=== PATIENT | male | born 1940 | race Caucasian/White ===

== ENCOUNTER 2016-09-04 14:20 | Inpatient (IN) | payer MEDICARE ==
[~2016-09-04] VITALS: Ht 180.3 cm; Wt 91.8 kg
[~2016-09-04 14:20] MED LIST: ASPIRIN325 MG PO; BENZONATATE200 MG PO; CORDARONE200 MG PO; COREG25 MG PO; CRESTOR10 MG PO; DEMADEX20 MG PO; HUMALOG 30100 UNITS/ SC; IPRAT-ALBUT 0.5-3 ML UPD; LANTUS SOL100 UNIT/1 SC; LEVAQUIN500 MG PO; MUCINEX DM ER1 EAC1 PO; NORVASC10 MG PO; PLAVIX75 MG PO; PREDNISONE20 MG PO; SINGULAIR10 MG PO; ZESTRIL40 MG PO
[2016-09-04 15:37] LABS: BASOPHILS 0 % (0.0-2.0); EOSINOPHILS 0 % (0-7); HEMATOCRIT 28.5 % (42.0-54.0); HEMOGLOBIN 8.7 g/dL (13.5-17.5); IMMATURE GRANULOCYTES 0.5 % (0-5); MCH 28.8 pg (26.0-34.0); MCHC 30.5 g/dL (31.0-37.0); MCV 94.4 fL (80.0-100.0); MEAN PLATELET VOLUME 10.9 fL (7.4-10.4); NEUTROPHILS 95.5 % (40-80); PLATELET COUNT 180 10x3/uL (130-400); RBC 3.02 10x6/uL (4.20-6.10); RDW 16.5 % (11.5-14.5); WBC 8.6 10x3/uL (4.8-10.8)
[2016-09-04 15:40] LABS: ALBUMIN 2.9 g/dL (3.4-5.0); ANION GAP 15.1 mmol/L (8-16); BILIRUBIN - TOTAL 0.4 mg/dL (0.2-1.3); CALCIUM 8.2 mg/dL (8.5-10.1); CARBON DIOXIDE 20.2 mmol/L (21.0-32.0); CREATININE - SERUM 3.8 mg/dL (0.6-1.3); PROTEIN - SERUM 6.1 g/dL (6.4-8.2)
[2016-09-04 15:45] LABS: POTASSIUM - SERUM 6.3 mmol/L (3.5-5.1)
[2016-09-04 16:19] LABS: PRO BNP 11172 pg/mL (0-450)
[2016-09-04 16:21] LABS: TROPONIN-I < 0.017 ng/mL (0.000-0.060)
[2016-09-04 16:37] LABS: APPEARANCE HAZY (CLEAR); BILIRUBIN NEGATIVE (NEGATIVE); COLOR YELLOW (YELLOW); GLUCOSE NEGATIVE (NEGATIVE); KETONE NEGATIVE (NEGATIVE); LEUKOCYTE ESTERASE 2+ (NEGATIVE); NITRITE NEGATIVE (NEGATIVE); PROTEIN 1+ mg/dL (NEGATIVE); SPECIFIC GRAVITY 1.015 (1.005-1.020); UROBILINOGEN NORMAL (NORMAL)
[2016-09-04 16:38] LABS: BACTERIA MODERATE /hpf (NONE SEEN); RED CELLS - URINE 25-50 /hpf (0-5)
[2016-09-04] MEDS ORDERED: PREDNISONE10 MG PO (20:42)
[2016-09-04] MEDS ORDERED: FUROSEMIDE40 MG PO (20:43)
[2016-09-04] MEDS ORDERED: ULTRAM50 MG PO (20:45)
[2016-09-04] MEDS ORDERED: BETAPACE 120 M120 MG PO (20:46)
[2016-09-04] MEDS ORDERED: HUMALOG 30100 UNITS/ SC (20:49)
[2016-09-04] MEDS ORDERED: NORVASC10 MG PO (20:50)
[2016-09-04] MEDS ORDERED: FLOMAX0.4 MG PO (20:50)
[2016-09-04] MEDS ORDERED: CARDURA4 MG PO (20:51)
[2016-09-04] MEDS ORDERED: NOVOLIN N100 U/ML SQ ×2 (20:52)
--- NOTE | 2016-09-04 22:00 | NUR ---
NEW ADMIT TO [facility] FROM EMERGENCY DEPARTMENT TO DR THURSTON FOR RENAL FAILURE AND CHF. RECEIVED TO ROOM 2107 WITH AND STAFF AT HIS SIDE. RIGHT HAND IV IN PLACE S/L. CALM AND COOPERATIVE. DENIES ANY DISRESS. STATES PAIN OF [address] SANDRA CALLED AND INFORMED OF PATIENT ARRIVAL. NO NEW ORDERES RECEIVED. NEW LUND CATH PLACE PER ORDER. [id number] OUT UPON PLACEMENT OF NEW LUND. TELEMETRY ORDERED BUT NOT AVAILABLE AT THIS TIME. ORIENTED TO UNIT. EDUCATE ON FALLS SAFETY,
[2016-09-04 22:03] LABS: APPEARANCE CLEAR (CLEAR); COLOR YELLOW (YELLOW); SPECIFIC GRAVITY 1.015 (1.005-1.020)
[2016-09-04 22:04] LABS: BILIRUBIN NEGATIVE (NEGATIVE); GLUCOSE NEGATIVE (NEGATIVE); KETONE NEGATIVE (NEGATIVE); LEUKOCYTE ESTERASE NEGATIVE (NEGATIVE); NITRITE NEGATIVE (NEGATIVE); PROTEIN NEGATIVE (NEGATIVE); UROBILINOGEN NORMAL (NORMAL)
[2016-09-05] VITALS (7 sets, daily range): BP systolic 106–192; BP diastolic 51–82; Ht 180.3 cm; Wt 91.8 kg
[2016-09-05 05:57] LABS: BASOPHILS 0 % (0.0-2.0); EOSINOPHILS 0.1 % (0-7); HEMATOCRIT 25.9 % (42.0-54.0); HEMOGLOBIN 8.1 g/dL (13.5-17.5); IMMATURE GRANULOCYTES 0.5 % (0-5); LYMPHOCYTES 8.6 % (15-50); MCH 29.1 pg (26.0-34.0); MCHC 31.3 g/dL (31.0-37.0); MCV 93.2 fL (80.0-100.0); MEAN PLATELET VOLUME 10.6 fL (7.4-10.4); MONOCYTES 4.6 % (2-11); NEUTROPHILS 86.2 % (40-80); PLATELET COUNT 171 10x3/uL (130-400); RBC 2.78 10x6/uL (4.20-6.10); RDW 16.2 % (11.5-14.5); WBC 7.8 10x3/uL (4.8-10.8)
[2016-09-05 06:34] LABS: ALBUMIN 2.6 g/dL (3.4-5.0); BILIRUBIN - TOTAL 0.4 mg/dL (0.2-1.3); CALCIUM 7.7 mg/dL (8.5-10.1); CARBON DIOXIDE 19.5 mmol/L (21.0-32.0); CREATININE - SERUM 3.7 mg/dL (0.6-1.3); POTASSIUM - SERUM 5.5 mmol/L (3.5-5.1); PROTEIN - SERUM 5.3 g/dL (6.4-8.2)
--- NOTE | 2016-09-05 07:13 | NUR ---
AM ROUNDING- RECEIVED REPORT, PT CURRENTLY SITTING UP IN BED WITH EYES OPEN ASKING WHEN BREAKFAST WILL BE. INFORMED PT TRAYS WILL BE UP AROUND 0800. PT IS ALERT AND ORIENTED. LUND CATHETER WITH YELLOW URINE SEEN. ON ROOM AIR. NO MONITOR CURRENTLY PER REPORT BECAUSE THERE ARE NON AVAILABLE CURRENTLY. FSBS ACHS, NO COVERAGE NEEDED THIS AM PER MINE MOTOR ENGINEER NURSE. +3 EDEMA SEEN TO LE. NO NEED AT CURRENT TIME. WILL CONTINUE TO MONITOR AND CONTINUE WITH PLAN OF CARE.
--- NOTE | 2016-09-05 09:35 | NUR ---
PLACED ON MONITOR ORDERED. SHOWING JUNCTIONAL RHYTHM, HR 50.
[2016-09-05 15:04] LABS: ANION GAP 13.5 mmol/L (8-16); CALCIUM 8.1 mg/dL (8.5-10.1); CARBON DIOXIDE 21.6 mmol/L (21.0-32.0); CREATININE - SERUM 3.4 mg/dL (0.6-1.3)
[2016-09-05 15:33] LABS: POTASSIUM - SERUM 6.1 mmol/L (3.5-5.1)
--- NOTE | 2016-09-05 15:47 | NUR ---
CALLED DR. MCCARTHY OFFICE. DR. FUNES IS OUT FOR THE AFTERNOON PER NUCLEAR EQUIPMENT SALES ENGINEER. DR. DAY IS SUPERVISOR OF OFFICIALS. I CALLED TO INFORM DOCTOR MARIN OF PTS POTASSIUM LEVEL (6.1). NUCLEAR EQUIPMENT SALES ENGINEER SENT ME TO DR. DELAROSA NURSES VOICMAIL. LEFT VOICEMAIL REQUESTING THAT NURSE CALL ME BACK. WILL CONTINUE TO MONITOR AND AWAIT CALLBACK.
--- NOTE | 2016-09-05 15:56 | NUR ---
SPOKE WITH DR. DAY, INFORMED HIM OF PTS POTASSIUM LEVEL. DR. DAY STATED TO NOTIFY PTS RENAL DOCTOR ABOUT POTASSIUM LEVEL. WILL CALL DR. ASNDRA ORDERED.
--- NOTE | 2016-09-05 16:59 | NUR ---
Patient Name: MARIAMA ZUÑIGA Admission Status: ER Accout number: [id number] Admission Date: 09-04-2016 : 1940 Admission Diagnosis: Attending: STEPHEN Current LOS: 1 Anticipated DC Date: 09-05-2016 Planned Disposition: Home with Home Health Primary Insurance: [employer] CHOICE PPO MCR ADVANT Discharge Planning Comments: * Is the patient Alert and Oriented? Yes 0 * How many steps to enter\exit or inside your home? 3 0 * PCP DR. VITALE 0 * [facility] * Preadmission Environment Home with Family 0 * ADLs Independent 0 * Equipment CPAP Elevated [place] Seat Nebulizer 0 * Other Equipment [facility] - MEDICAL EQUIPMENT PROVIDER PREFERENCE 0 * List name and contact numbers for known caregivers / representatives who currently or will assist patient after discharge: JOSE ANGEL ZUÑIGA, SPOUSE, 0 * Community resources currently utilized Home Health 0 * Please name any agencies selected above. [facility] WAS SCHEDULED TO ADMIT ON 09-04-16, DAY PT ADMITTED HERE 0 * Additional services required to return to the preadmission environment? Yes 0 * Can the patient safely return to the preadmission environment? Yes 0 * Has this patient been hospitalized within the prior 30 days at any hospital? Yes 0 CM MET WITH PT IN ROOM TO DISCUSS DISCHARGE PLANNING AND NEEDS. PT REPORTS LIVING AT HOME INDEPENDENTLY WITH HIS SPOUSE. PT HAS ELEVATED TOILET SEAT, CPAP AND NEBULIZER FROM [facility]. PT HAD HOME HEALTH WITH [facility] SET UP AFTER HE GOT RELEASED FROM [facility], THERE WERE TO ADMIT HIM YESTERDAY BUT HE WAS ADMITTED HERE FOR SWELLING. PT REPORTS HE WAS IN [facility] IN THE LAST 30 DAYS. CM DISCUSSED AVAILABILITY OF HOME HEALTH, REHAB SERVICES AND MEDICAL EQUIPMENT. PT PLANS TO DISCHARGE HOME AND WANTS HOME HEALTH ARRANGED WITH [facility] WHEN HE DISCHARGES HOME. PT REPORTS HIS WILL PICK HIM UP FOR DISCHARGE HOME. CM CALLED [facility], , SPOKE TO EDWINA WHO REPORTED THAT IF PT NEEDS HOME HEALTH AT DISCHARGE, THEY WILL NEED NEW ORDERS PT WAS NOT ADMITTED TO HOME HEALTH PRIOR TO HIS ADMISSION TO [facility]. CM SPOKE TO PT, CHOICE SIGNED. PT PLANS TO DISCHARGE HOME WITH SPOUSE, REQUESTS HOME HEALTH WITH [facility]; CM TO ARRANGE WITH PHYSICIAN ORDERS IF NEEDED. Special Education Itinerant Teacher: Lucas Hyman
--- NOTE | 2016-09-05 17:50 | NUR ---
PT SITTING UP IN BED CURRENTLY EATING DINNER. DENIES ANY NEED AT CURRENT TIME. WILL CONTINUE TO MONITOR.
--- NOTE | 2016-09-05 18:18 | NUR ---
DR. SANDRA ON UNIT. INFORMED HIM OF PTS POTASSIUM PER DR. DELAROSA REQUEST. AWAITING NEW ORDERS.
--- NOTE | 2016-09-05 19:54 | NUR ---
INTRODUCED MYSELF TO PT PRIMARY RN FOR [facility] SHIFT. PT IS SITTING UP IN BED RESTING QUIETLY. ALERT & ORIENTED. SHIFT ASSESSMENT COMPLETED AND MARINE SUPERINTENDENT MAKING ROUNDS FOR VITALS. PT DENIES ANY CURRENT NEEDS AT THIS TIME WILL PULL NIGHTLY SCHEDULED MEDICATIONS AND CONTINUE WITH PLAN OF CARE. CL IN REACH, BED IN LOWEST, SIDE RAILS X2.
[2016-09-06] VITALS (26 sets, daily range): BP systolic 149–183; BP diastolic 49–99
[2016-09-06 06:11] LABS: BASOPHILS 0 % (0.0-2.0); EOSINOPHILS 0 % (0-7); HEMATOCRIT 27.4 % (42.0-54.0); HEMOGLOBIN 8.4 g/dL (13.5-17.5); IMMATURE GRANULOCYTES 0.5 % (0-5); LYMPHOCYTES 5.5 % (15-50); MCH 28.6 pg (26.0-34.0); MCHC 30.7 g/dL (31.0-37.0); MCV 93.2 fL (80.0-100.0); MEAN PLATELET VOLUME 10.6 fL (7.4-10.4); MONOCYTES 3.3 % (2-11); NEUTROPHILS 90.7 % (40-80); PLATELET COUNT 166 10x3/uL (130-400); RBC 2.94 10x6/uL (4.20-6.10); RDW 16.5 % (11.5-14.5); WBC 6.6 10x3/uL (4.8-10.8)
[2016-09-06 06:53] LABS: ALBUMIN 2.7 g/dL (3.4-5.0); ANION GAP 14.3 mmol/L (8-16); BILIRUBIN - TOTAL 0.39 mg/dL (0.2-1.3); CARBON DIOXIDE 22.4 mmol/L (21.0-32.0); CREATININE - SERUM 3.3 mg/dL (0.6-1.3); POTASSIUM - SERUM 5.7 mmol/L (3.5-5.1); PROTEIN - SERUM 5.5 g/dL (6.4-8.2)
[2016-09-06 12:03] LABS: HEMATOCRIT 24.6 % (42.0-54.0); HEMOGLOBIN 7.8 g/dL (13.5-17.5)
--- NOTE | 2016-09-06 12:23 | NUR ---
PT ASSESSMENT COMPLETED PT STATED " I FEEL LIKE I NEED TO HAVE A POOP" ASSISTED PT TO BEDPAN AND PT HAD BM WITH BRIGHT RED BLOOD IN STOOLS AND LOOSE STOOLS PT CLEANED UP AND LINENS CHANGED BY LUIZ OVALLES THIS NURSE PAGED DR SAPP AND INFORMED HIM OF CHANGE IN PT STATUS ORDERS RECIVED AND EXECUTED ORDERED DR LEES OFFICE CALLED REGARDING CONSULT AND INFORMED OF PT STATUS AND WATING FOR CALL BACK FOR FURTHER ORDERS PT LAYING IN BED NO DITRESS OBSERVED AT THIS TIME VITAL SIGNS STABLE AND PT IS ASYMPTOMATIC WILL MONITOR
--- NOTE | 2016-09-06 12:32 | NUR ---
DR LEES OFFICE CALLED BACK ORDERS RECIVED TO TRANSFER TO ICU AND HAVE ABD AND PELVICE CT COMPLETED AND ORAL CONTRAST ONLY NG TUBE TO BE DROPPED AND 1LITER LAVAGE WITH RESULTS CALLED TO DR LEES OFFICE3
--- NOTE | 2016-09-06 12:33 | NUR ---
REPORT CALLED TO ICU NURSE WOJCIECH. PT TRANSFERED TO UNIT BY BED
--- NOTE | 2016-09-06 13:16 | NUR ---
1300 PT RECIEVED IN THE ICU VIA BED FROM THE FLOOR . PT IS AWAKE AND ALERT C/O RIGHT HIP AND THIGH PAIN.. STATES THAT HE HAS NOT HAD ANY NAUSEA OR VOMITING.. STATED THAT THEY GAVE HIM SOMETHING BY MOUTH TO HELP LOWERR HIS POTASIUM LEVEL AND IT MADE HIM HAVE A BM.... STATES NO KNOWLEDGE IF IT WAS BLOODY OR NOT WHEN ASKED IF IT WAS A LARGE AMOUNT OF BLOOD...THERE IS A 20GA PIV IN THE LEFT HAND SALINE LOCKED.. 1315 LAB CALLED FOR PRBC .. NOT YET READY.. 1320 DR LEES PAGED FOR CLARIFICATION OF ORDERS..
--- NOTE | 2016-09-06 14:53 | NUR ---
1415 PIV RIGHT HAND INFILTRATED.. DISCOVERED WHEN PRBC TO BE INFUSED... 1420 PIV RESITED INTO LEFT WRIST.... 20 GA... PRBC HUNG AND INFUSION INITIATED.. PT WITH A VERY LARGE LIQUID MAROON STOOL 850CC 1430 16 FR NGT INSTILLED AND 1000CC NS LAVAGE.. 500 CC IMMIDIATE RETURN ON CLEAR ORANGE TINT ASPIRATE OBTAINED.. 1500 CT HERE AND ORAL CONTRAST IS INSTILLED INTO THE NGT.. PRBC CONTINUES TO INFUSE INTO THE LEFT WRIST PIV PT IS C/OO HIP AND LEG PAIN...
--- NOTE | 2016-09-06 15:44 | NUR ---
1545 BLOODY BM.. PRBC CONTINUE TO INFUSE.. WAITING ON CT SCAN
--- NOTE | 2016-09-06 16:44 | NUR ---
1600 DR SANDRA IN TO SEE PT.. UPDATAE IS GIVEN AND ORDERS RECIEVED.. UNIT PRBC CONTINUES. 1630 UNIT THRU INFUSING.. LASIX HELD PER DR SANDRA ORDER.. [address] SCAN VIA BED.. LEFT PIV IS SALINE LOCKED AT THIS TIME..
--- NOTE | 2016-09-06 17:02 | NUR ---
BACK FROM CT UNIT.
--- NOTE | 2016-09-06 17:25 | NUR ---
PATIENTS SECOND UNIT OF PRBC ([id number]) STARTED AFTER SAFETY CHECK WITH WOJCIECH ROSARIO RN. PATIENT DENIES QUESTIONS. WILL MONITOR.
--- NOTE | 2016-09-06 19:15 | NUR ---
REPORT RECEIVED AND CARE ASSUMED. INITIAL SHIFT ASSESSMENT COMPLETED SEE FLOWSHEET. PT CURRENTLY RECEIVING AND ALMOST FINISHED WITH 2ND UNIT OF PRBC GIVEN TODAY. HAS TOLERATED WELL PER REPORT. TO HAVE SODIUM BICARB STARTED AFTER TRANSFUSION COMPLETED. DR. SANDRA DID SAY TO HOLD THIS IVF WHILE RECEIVING TRANSFUSIONS PER REPORT OF OFFGOING NURSE. PT BEING MONITORED PER STANDARD ICU PROTOCOL AND ALL ALARMS SET AND VERIFIED. NOTE B/P IS ELEVATED. PT DID ADMIT TO PAIN MEDS GIVEN PER AUG. DR. FUNES IS AWARE OF ELEVATED B/P PER OFF GOING RN AND PHARMACY NOTIFIED OF NEED FOR NEWLY ORDERED CATAPRES PATCH. WILL MONITOR THROUGHOUT THE NIGHT FOR EFFECTIVENESS. BED IN LOW POSITION AND CALL LIGHT IN REACH.
--- NOTE | 2016-09-06 21:15 | NUR ---
LABS REVIEWED AND PT IN NEED OF 2 ADDITIONAL UNITS OF PRBC PER PARIMETERS ORDERED PER DR. LEES. BLOOD BANK NOTIFIED AND PT NOTIFIED OF PLAN OF TREATMENT. PT VERBALIZED COMPREHENSION. CONSENT FOR TRANSFUSION VERIFIED AND IS ON THE CHART. NO VISITORS AT THIS TIME. PT DID TALK WITH VIA TELEPHONE AND NOTIFIED HER OF PLANS.
[2016-09-06 21:22] LABS: BASOPHILS 0 % (0.0-2.0); EOSINOPHILS 0.1 % (0-7); HEMATOCRIT 23.8 % (42.0-54.0); HEMOGLOBIN 7.7 g/dL (13.5-17.5); IMMATURE GRANULOCYTES 0.7 % (0-5); LYMPHOCYTES 5.2 % (15-50); MCH 28.5 pg (26.0-34.0); MCHC 32.4 g/dL (31.0-37.0); MEAN PLATELET VOLUME 9.9 fL (7.4-10.4); MONOCYTES 2.7 % (2-11); NEUTROPHILS 91.3 % (40-80); PLATELET COUNT 136 10x3/uL (130-400); RDW 17.7 % (11.5-14.5)
[2016-09-06 21:23] LABS: MCV 88.1 fL (80.0-100.0); WBC 9.6 10x3/uL (4.8-10.8)
--- NOTE | 2016-09-06 21:27 | NUR ---
RIGHT NARE NGT REMOVED PER DR. LEES ORDER. PT TOLERATED WELL. ICE CHIPS PROVIDED
[2016-09-06 21:32] LABS: APTT 28.4 SECONDS (22.8-39.4); INR 1.31 (0.85-1.17); PROTIME 16.2 SECONDS (11.6-15.0)
[2016-09-06 21:41] LABS: ALBUMIN 2.2 g/dL (3.4-5.0); ANION GAP 10.8 mmol/L (8-16); BILIRUBIN - TOTAL 0.69 mg/dL (0.2-1.3); CALCIUM 7.3 mg/dL (8.5-10.1); CREATININE - SERUM 2.6 mg/dL (0.6-1.3); POTASSIUM - SERUM 5.8 mmol/L (3.5-5.1); PROTEIN - SERUM 4.4 g/dL (6.4-8.2)
--- NOTE | 2016-09-06 22:00 | NUR ---
1ST OF 2 UNITS OF PRBC (MAKING THE RUNNING TOTAL OF 3 UNITS OF PRBC RECEIVED THIS STAY) STARTED AFTER STANDARD VERIFICATION PROCEDURE FOLLOWED AND SIGNED OFF WITH BY ALDO JACKSON.
[2016-09-07] VITALS (32 sets, daily range): BP systolic 140–197; BP diastolic 68–93
--- NOTE | 2016-09-07 | NUR ---
PT CONTINENT OF LARGE DARK MAROON RECTAL "STOOL" NO ACTUAL STOOL NOTED.
--- NOTE | 2016-09-07 01:15 | NUR ---
2ND UNIT TONIGHT BEGAN AFTER STANDARD VERIFICATION. THIS IS THE 4TH TOTAL RECEIVED. PT TEACHING DONE BEFORE ANY BLOOD PRODUCT ADMINISTRATION. PT VERBALIZED COMPREHENSION
--- NOTE | 2016-09-07 03:15 | NUR ---
PT CONTINENT OF LARGE DARK MAROON RECTAL "STOOL" AGAIN NO ACTUAL FECES SEEN. 1,200CC.
[2016-09-07 04:51] LABS: BASOPHILS 0 % (0.0-2.0); EOSINOPHILS 0.4 % (0-7); HEMATOCRIT 26.3 % (42.0-54.0); HEMOGLOBIN 8.6 g/dL (13.5-17.5); IMMATURE GRANULOCYTES 0.7 % (0-5); LYMPHOCYTES 7.1 % (15-50); MCH 28.6 pg (26.0-34.0); MCHC 32.7 g/dL (31.0-37.0); MCV 87.4 fL (80.0-100.0); MEAN PLATELET VOLUME 10.7 fL (7.4-10.4); MONOCYTES 5.1 % (2-11); NEUTROPHILS 86.7 % (40-80); PLATELET COUNT 123 10x3/uL (130-400); RBC 3.01 10x6/uL (4.20-6.10); RDW 17.1 % (11.5-14.5); WBC 10.7 10x3/uL (4.8-10.8)
[2016-09-07 05:07] LABS: ALBUMIN 2.1 g/dL (3.4-5.0); BILIRUBIN - TOTAL 0.67 mg/dL (0.2-1.3); CALCIUM 7.5 mg/dL (8.5-10.1); CARBON DIOXIDE 21.7 mmol/L (21.0-32.0); CREATININE - SERUM 2.5 mg/dL (0.6-1.3); POTASSIUM - SERUM 5.7 mmol/L (3.5-5.1); PROTEIN - SERUM 4.2 g/dL (6.4-8.2)
--- NOTE | 2016-09-07 05:07 | NUR ---
SPOKE WITH ALEX IN BLOOD BANK TO REQUEST PRBC FOR TRANSFUSION PER ORDER
--- NOTE | 2016-09-07 09:04 | NUR ---
0740-RECIEVED AWAKE AND ALERT--RENAL NURSE PRACTITIONER AT BEDSIDE--STATUS REPORT GIVEN--PT ABLE TO ANSWER ALL QUESTIONS APPROPRIATELY NOTIFIED BLOOD BANK OF PRBC STILL NEEDING TO BE GIVEN-STATED WILL CALL UNIT WHEN AVAILABLE-CONFIRMED TO HOLD BICARB IV WITH RENAL NURSE PRACTITIONER DURING PRBC TRANSFUSION AND RESUME AT 75ML/H 0800-PRBC UNIT NUMBER-
--- NOTE | 2016-09-07 10:20 | NUR ---
Nutrition Follow Up: Chart reviewed. Per MD note pt with bleeding and constipation. Clear Liquid diet started this morning. I<O. +BM 09/06/16. Wt gain 4# since admit. Labs noted. Meds noted including Solu-Medrol, Lasix, Humalog, Humulin. Rec continue current diet, advance as tolerated when medically feasible. RD following.
[2016-09-07 13:21] LABS: HEMATOCRIT 28.5 % (42.0-54.0); HEMOGLOBIN 9.6 g/dL (13.5-17.5)
[2016-09-07 15:07] LABS: ANION GAP 10.7 mmol/L (8-16); CALCIUM 7.7 mg/dL (8.5-10.1); CARBON DIOXIDE 23.6 mmol/L (21.0-32.0); CREATININE - SERUM 2.3 mg/dL (0.6-1.3); POTASSIUM - SERUM 5.3 mmol/L (3.5-5.1)
[2016-09-07 19:07] LABS: HEMATOCRIT 31.8 % (42.0-54.0); HEMOGLOBIN 10.7 g/dL (13.5-17.5)
--- NOTE | 2016-09-07 19:59 | NUR ---
1530-DR MCDONALD AT BEDSIDE0-NOTED MAROON STOOL LARGE AMOUNT -- 1630-PT TO NUCLEAR MED 1750-RETURNED FROM NUCLEAR MED BICARB IV RESTARTED- 1850-LAB DRAWN FOR HGB/HCT
--- NOTE | 2016-09-07 23:30 | NUR ---
1929- REPORT RECVD. CARE ASSUMED. INITIAL ASSMNT COMPLETED. SEE FLOWSHEET FOR ALL FINDINGS. AWAKE AND AOX4. RESP UNALBORED. LUNGS CTA. SPO2 97% ON RA. SR ON THE MONITOR. PULSES PALP. GENERALIZED EDEMA PRESENT. SCDS ON. AFEBRILE. ABD DISTENDED, SOFT. NO STOOLS SEEN AT THIS TIME. F/C PATENT WITH ALBERTA UOP. DENIES UNCONTROLLED PAIN. HOB UP. C/L IN REACH. CONT CURRENT POC. 2129- HS MEDS GIVEN. PRN MORPHINE PROVIDED. REPOSITION FOR COMFORT. VSS. AT BEDSIDE. UPDATE GIVEN. 2329- REASSESSMENT COMPLETED. SEE FLOWSHEET FOR ALL FINDINGS. AWAKE AND AOX4. RESP UNALBORED. LUNGS CTA. SPO2 97% ON RA. SR ON THE MONITOR. PULSES PALP. GENERALIZED EDEMA PRESENT. SCDS ON. AFEBRILE. ABD DISTENDED, SOFT. NO STOOLS SEEN AT THIS TIME. F/C PATENT WITH ALBERTA UOP. DENIES UNCONTROLLED PAIN. HOB UP. C/L IN REACH. CONT CURRENT POC.
[2016-09-08] VITALS (22 sets, daily range): BP systolic 108–188; BP diastolic 64–99
--- NOTE | 2016-09-08 01:18 | NUR ---
RESTING WITH EYES CLOSED. VSS. NO NEEDS VOICED. HOB UP. C/L IN REACH. CONT CURRENT POC.
--- NOTE | 2016-09-08 02:37 | NUR ---
PT REQUESTS PRN MORPHINE FOR INCREASED PAIN IN HIP.
--- NOTE | 2016-09-08 03:30 | NUR ---
REASSESSMENT COMPLETED. SEE FLOWSHEET FOR ALL FINDINGS. AWAKE AND AOX4. RESP UNALBORED. LUNGS CTA. SPO2 97% ON RA. SR ON THE MONITOR. PULSES PALP. GENERALIZED EDEMA PRESENT. SCDS ON. AFEBRILE. ABD DISTENDED, SOFT. NO STOOLS SEEN AT THIS TIME. F/C PATENT WITH ALBERTA UOP. DENIES UNCONTROLLED PAIN. HOB UP. C/L IN REACH. CONT CURRENT POC.
[2016-09-08 05:30] LABS: BASOPHILS 0 % (0.0-2.0); EOSINOPHILS 0.3 % (0-7); HEMATOCRIT 30.5 % (42.0-54.0); IMMATURE GRANULOCYTES 0.8 % (0-5); LYMPHOCYTES 7.7 % (15-50); MCH 28.2 pg (26.0-34.0); MCHC 32.8 g/dL (31.0-37.0); MCV 85.9 fL (80.0-100.0); MEAN PLATELET VOLUME 10.5 fL (7.4-10.4); MONOCYTES 6.3 % (2-11); NEUTROPHILS 84.9 % (40-80); PLATELET COUNT 110 10x3/uL (130-400); RBC 3.55 10x6/uL (4.20-6.10); RDW 17.2 % (11.5-14.5); WBC 10.2 10x3/uL (4.8-10.8)
[2016-09-08 05:34] LABS: INR 1.18 (0.85-1.17); PROTIME 14.9 SECONDS (11.6-15.0)
--- NOTE | 2016-09-08 05:34 | NUR ---
H AND H WITHIN PARAMETERS. NO PRBC AT THIS TIME. VSS. DENIES NEEDS. CONT CURRENT POC.
[2016-09-08 05:45] LABS: ALBUMIN 2.3 g/dL (3.4-5.0); ANION GAP 11.3 mmol/L (8-16); BILIRUBIN - TOTAL 0.92 mg/dL (0.2-1.3); CALCIUM 7.8 mg/dL (8.5-10.1); CARBON DIOXIDE 26.7 mmol/L (21.0-32.0); CREATININE - SERUM 1.9 mg/dL (0.6-1.3); PROTEIN - SERUM 4.5 g/dL (6.4-8.2)
[2016-09-08 11:00] LABS: HEMOGLOBIN 10.5 g/dL (13.5-17.5)
[2016-09-08 19:14] LABS: HEMATOCRIT 31.3 % (42.0-54.0); HEMOGLOBIN 10.3 g/dL (13.5-17.5)
--- NOTE | 2016-09-08 19:30 | NUR ---
REPORT RECVD. CARE ASSUMED. INITIAL ASSMNT COMPLETED. SEE FLOWSHEET FOR ALL FINDINGS. AWAKE AND AOX4. RESP UNALBORED. LUNGS CTA. SPO2 97% ON RA. SR ON THE MONITOR. PULSES PALP. GENERALIZED EDEMA PRESENT. SCDS ON. AFEBRILE. ABD DISTENDED, SOFT. NO STOOLS SEEN AT THIS TIME. F/C PATENT WITH ALBERTA UOP. DENIES UNCONTROLLED PAIN. HOB UP. C/L IN REACH. CONT CURRENT POC.
--- NOTE | 2016-09-08 19:47 | NUR ---
H AND H WITHIN PARAMETERS
--- NOTE | 2016-09-08 23:30 | NUR ---
2100- HS MEDS GIVEN. PRN MORPHINE PROVIDED. REPOSITION FOR COMFORT. DR LEES AT BEDSIDE. NO NEW ORDERS. WILL ADVANCE DIET IN AM. 2330- REASSESSMENT COMPLETED. SEE FLOWSHEET FOR ALL FINDINGS. AWAKE AND AOX4. RESP UNALBORED. LUNGS CTA. SPO2 97% ON RA. SR ON THE MONITOR. PULSES PALP. GENERALIZED EDEMA PRESENT. SCDS ON. AFEBRILE. ABD DISTENDED, SOFT. NO STOOLS SEEN AT THIS TIME. F/C PATENT WITH ALBERTA UOP. DENIES UNCONTROLLED PAIN. HOB UP. C/L IN REACH. CONT CURRENT POC.
[2016-09-09] VITALS (14 sets, daily range): BP systolic 119–157; BP diastolic 66–97
--- NOTE | 2016-09-09 01:40 | NUR ---
PT REQUESTS PRN MORPHINE FOR INCREASED PAIN.
--- NOTE | 2016-09-09 05:30 | NUR ---
RESTING WITH NO DISTRESS. VSS. HOB UP. C/L IN REACH. CONT CURRENT POC.
[2016-09-09 05:36] LABS: BASOPHILS 0 % (0.0-2.0); EOSINOPHILS 0.3 % (0-7); HEMATOCRIT 29.3 % (42.0-54.0); HEMOGLOBIN 9.6 g/dL (13.5-17.5); IMMATURE GRANULOCYTES 0.5 % (0-5); LYMPHOCYTES 8.2 % (15-50); MCH 28.7 pg (26.0-34.0); MCHC 32.8 g/dL (31.0-37.0); MCV 87.5 fL (80.0-100.0); MEAN PLATELET VOLUME 10.1 fL (7.4-10.4); PLATELET COUNT 116 10x3/uL (130-400); RBC 3.35 10x6/uL (4.20-6.10); WBC 9.6 10x3/uL (4.8-10.8)
[2016-09-09 05:55] LABS: ALBUMIN 2.4 g/dL (3.4-5.0); ANION GAP 8.7 mmol/L (8-16); BILIRUBIN - TOTAL 0.82 mg/dL (0.2-1.3); CALCIUM 7.7 mg/dL (8.5-10.1); CARBON DIOXIDE 29.9 mmol/L (21.0-32.0); CREATININE - SERUM 1.8 mg/dL (0.6-1.3); POTASSIUM - SERUM 4.6 mmol/L (3.5-5.1); PROTEIN - SERUM 4.6 g/dL (6.4-8.2)
--- NOTE | 2016-09-09 06:15 | NUR ---
LUND CATHETER REMOVED NO DIFF. URINAL PROVIDED.
[2016-09-09 12:57] LABS: HEMATOCRIT 30.4 % (42.0-54.0)
--- NOTE | 2016-09-09 13:25 | NUR ---
0715-RECIVED PER FLOW SHEET-AWAKE AND ALERT-DENIES ANY COMPLAINT-[facility]IEV[facility]
--- NOTE | 2016-09-09 13:28 | NUR ---
0930-PHYSICAL THERAPY AT BEDSIDE-ASSISTED WITH AMBULATION AND TO CHAIR-KBRN 1100-ASSISTED BACK TO BED-TOLERATED WELL 1230-LAB DRAWN ORDERED 1300-DR LEES NOTIFIED OF H AND H RESULT -ORDER TO TRANSFER GIVEN
--- NOTE | 2016-09-09 14:00 | NUR ---
RECIEVED FROM ICU. AWAKE ALERT AND ORIENTED. V/S STABLE. SCDS ON. SL TO LEFT WRIST. DENIES ANY NEEDS. CALL LIGHT IN REACH WITH SR UP. WILL MONITOR
--- NOTE | 2016-09-09 18:26 | NUR ---
FAMILY AT BEDS SIDE, DENIES ANY NEEDS. WILL MONITOR.
--- NOTE | 2016-09-09 19:33 | NUR ---
ASSISTED PT TO BR VIA WALKER. PT STEADY ON FEET. ASSISTED BACK TO BED. SMALL BM NOTED. AT BEDSIDE. WILL CONTINUE TO MONITOR.
[2016-09-09 19:42] LABS: HEMATOCRIT 29.5 % (42.0-54.0); HEMOGLOBIN 9.5 g/dL (13.5-17.5)
--- NOTE | 2016-09-10 01:24 | NUR ---
ADMISSION ASSESSMENT COMPLETED AT 2000 HRS. VSS. 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 IV TO L WRIST SL. LUNGS DIMINISHED IN BASES BILAT. BRUISES NOTED TO BILAT ARMS AND MID BACK. PM FSBS 305. HUMALOG INSULIN GIVEN SUB-Q PER S/S. PM PO MEDS GIVEN. IV TO L WRIST INFILTRATED. DC'D WITH CATHETER INTACT. NEW IV STARTED # 20 TO L HAND WITH ATTEMPT X1 AT 2215 HRS. PT TOLERATED ACTIVITY WELL. IV PROTONIX AND MORPHINE 2MG SIVP FOR C/O CHRONIC HIP PAIN GIVEN AT THAT TIME. PT CURRENTLY RESTING WITH EYES CLOSED. RESP EVEN AND REGULAR. SR UP X2, CALL LIGHT WITHIN REACH. PT REFUSED SCD'S AT SHIFT CHANGE.
--- NOTE | 2016-09-10 02:26 | NUR ---
PT RESTING WITH EYES CLOSED. RESP EVEN AND REGLAR. SR UP X2, CALL LIGHT WITHIN REACH.
[2016-09-10 03:49] VITALS: BP 176/74
--- NOTE | 2016-09-10 04:17 | NUR ---
MORPHINE 2MG SIVP GIVEN FOR C/O CHRONIC HIP PAIN. WILL CONTINUE TO MONITOR.
[2016-09-10 05:37] LABS: BASOPHILS 0 % (0.0-2.0); EOSINOPHILS 0.6 % (0-7); HEMATOCRIT 29.2 % (42.0-54.0); HEMOGLOBIN 9.4 g/dL (13.5-17.5); IMMATURE GRANULOCYTES 0.5 % (0-5); MCH 28.3 pg (26.0-34.0); MCHC 32.2 g/dL (31.0-37.0); MEAN PLATELET VOLUME 10.7 fL (7.4-10.4); MONOCYTES 8.3 % (2-11); NEUTROPHILS 82.6 % (40-80); PLATELET COUNT 134 10x3/uL (130-400); RBC 3.32 10x6/uL (4.20-6.10); RDW 16.4 % (11.5-14.5); WBC 9.7 10x3/uL (4.8-10.8)
[2016-09-10 05:48] LABS: ALBUMIN 2.4 g/dL (3.4-5.0); ANION GAP 9.2 mmol/L (8-16); BILIRUBIN - TOTAL 0.67 mg/dL (0.2-1.3); CALCIUM 7.8 mg/dL (8.5-10.1); CARBON DIOXIDE 29.1 mmol/L (21.0-32.0); POTASSIUM - SERUM 4.3 mmol/L (3.5-5.1); PROTEIN - SERUM 4.6 g/dL (6.4-8.2)
--- NOTE | 2016-09-10 06:56 | NUR ---
VSS THROUGHOUT NIGHT. CAF WITH BBB PER CM. PT STATED IV MORPHINE HELPED CHRONIC HIP PAIN. NEEDS MET; WILL CONTINUE TO MONITOR.
[2016-09-10 08:17] VITALS: BP 178/79
[2016-09-10 12:31] VITALS: BP 158/78
[2016-09-10 15:55] VITALS: BP 132/60
[2016-09-10 20:00] VITALS: BP 151/58
--- NOTE | 2016-09-11 00:27 | NUR ---
DAIRY NUTRITIONIST AT BEDSIDE FOR VS, NEEDS ADDRESSED. CALL LIGHT IN REACH. WILL CONT TO MONITOR.
[2016-09-11 02:00] VITALS: BP 166/72
--- NOTE | 2016-09-11 03:45 | NUR ---
RESTING WITH EYES CLOSED, RESPERATIOSN EVEN, NO S/S DISTRESS NOTED.
[2016-09-11 04:00] VITALS: BP 174/77
--- NOTE | 2016-09-11 04:04 | NUR ---
UP WITH ASSIST TO BR USING WALKER AND THEN BACK TO BED, PT C/O PAIN TO HIP, MORPHINE 2 MG GIVEN IV. RATES PAIN AT AN 8 ON PAIN SCALE.
[2016-09-11 06:19] LABS: BASOPHILS 0 % (0.0-2.0); EOSINOPHILS 0.6 % (0-7); HEMATOCRIT 28.6 % (42.0-54.0); HEMOGLOBIN 9.2 g/dL (13.5-17.5); IMMATURE GRANULOCYTES 0.6 % (0-5); LYMPHOCYTES 8.7 % (15-50); MCH 28.8 pg (26.0-34.0); MCHC 32.2 g/dL (31.0-37.0); MCV 89.4 fL (80.0-100.0); MEAN PLATELET VOLUME 10.4 fL (7.4-10.4); MONOCYTES 8.9 % (2-11); NEUTROPHILS 81.2 % (40-80); PLATELET COUNT 135 10x3/uL (130-400); RDW 16.2 % (11.5-14.5); WBC 9.5 10x3/uL (4.8-10.8)
[2016-09-11 06:39] LABS: ALBUMIN 2.3 g/dL (3.4-5.0); ANION GAP 9.2 mmol/L (8-16); BILIRUBIN - TOTAL 0.6 mg/dL (0.2-1.3); CALCIUM 7.7 mg/dL (8.5-10.1); CARBON DIOXIDE 28.2 mmol/L (21.0-32.0); CREATININE - SERUM 1.9 mg/dL (0.6-1.3); POTASSIUM - SERUM 4.4 mmol/L (3.5-5.1); PROTEIN - SERUM 4.3 g/dL (6.4-8.2)
[2016-09-11 08:39] VITALS: BP 178/61
[2016-09-11 11:16] LABS: HEPATITIS C ANTIBODY <0.1 (0.0-0.9)
--- NOTE | 2016-09-11 11:30 | NUR ---
ALERT AND ORIENTED X4. AMBULATING IN MANN ASSISTED BY PHYSICAL THERAPY. SINUS YOLY 57bpm ON TELEMETRY. RT HIP PAIN MANAGED. DENIES SOB. RETURN TO ROOM. SIT UP IN CHAIR FOR LUNCH. CONTINUE PLAN OF CARE AND SAFETY PRECAUTIONS.
[2016-09-11 12:03] VITALS: BP 158/78
--- NOTE | 2016-09-11 13:29 | NUR ---
Nutrition follow-up: Diet: Regular soft PO intake 100% of meals at this time Labs reviewed FSBS with poor control; pt receiving steroids at this time. Wt: 202# RDN following.
--- NOTE | 2016-09-11 15:38 | NUR ---
Patient Name: MARIAMA ZUÑIGA Encounter No: [id number] : 1940 Primary Insurance: [employer] CHOICE PPO MCR ADVANT Anticipated DC Date: 09-11-2016 Planned Disposition: Home with Home Health External Planned Provider: [facility] DCP follow-up note: CM RECEIVED DISCHARGE ORDER, MET WITH PT IN ROOM TO DISCUSS DISCHARGE NEEDS. PT REPORTS PLAN TO DISCHARGE WITH HOME HEALTH, CONFIRMED CHOICE OF [facility]. CM VERIFIED HOME ADDRESS AND CONTACT PHONE NUMBERS TO PROVIDE TO HOME HEALTH FOR HOME HEALTH ADMISSION TOMORROW. CM DISCUSSED HOME HEALTH SERVICES AND HOW TO ACCESS THE ATHLETIC TRAINER NURSE IF NEEDED AT HOME. IMPORTANT MESSAGE FROM MEDICARE PROVIDED AND EXPLAINED. PT STATED THAT HE TOLD THE DOCTOR HE DID NOT WANT TO GO HOME UNTIL TOMORROW. CM EXPLAINED THAT PT IS MEDICALLY STABLE AND HOME HEALTH CAN PROVIDE ANY SERVICES AT HOME. PT REPORTED HIS SON IS NOT IN TOWN TO TRANSPORT HIM HOME UNTIL TOMORROW. CM EXPLORED PT'S SUPPORT SYSTEM WITH PT. PT INITIALLY STATED NO ONE ELSE COULD TRANSPORT HIM HOME; CM DISCUSSED [employer] [facility] BEING AVAILABLE, PT REPORTS HIS CAN PICK HIM UP BUT HE IS NOT ABLE TO GET INTO THE HOUSE BY HIMSELF. PT'S SPOUSE IS NOT ABLE TO ASSIST. CM OFFERED REHAB PLACEMENT, PT DECLINED AND REPORTS HE IS GOING HOME. CM OFFERED TO FIND PT SOME ASSISTANCE TO GET FROM THE CAR INTO HIS HOME. CM CALLED [employer], , SPOKE TO ROLAND WHO REPORTED THEY CAN SEND A TRUCK TO PT'S HOME AND A CREW WILL HELP PT INTO THE HOUSE AT NO COST. CM NOTIFIED PT AND INSTRUCTED PT TO CALL WHEN HE ARRIVES AT HOME AND THE AMBULANCE CREW WILL COME AND ASSIST HIM INTO THE HOME AT NO COST. PT REPORTED HE WAS CONSIDERING CALLING [employer] TO APPEAL HIS DISCHARGE. CM PROVIDED CM CONTACT INFORMATION AND OFFERED TO ASSIST IF NEEDED. PT THANKED CM, REPORTED NO FURTHER NEEDS. CM CALLED [email or web address], , SPOKE TO KRISSY AND PROVIDED REFERRAL INFORMATION. CM FAXED REFERRAL TO [facility] AT [phone]. KRISSY TO ARRANGE HOME HEALTH FOLLOW UP FOR ADMISSION TOMORROW. PT TO DISCHARGE HOME WITH SPOUSE WHO WILL PICK HIM UP; PT PROVIDED THE NUMBER TO CALL [employer] IF NEEDED FOR ASSISTANCE AT NO COSTS TO GET FROM THE CAR TO THE INSIDE OF HIS HOUSE IF NEEDED. NO FURHTER DISCHARGE NEEDS IDENTIFIED. Criminal Investigative Agent: Lucas Hyman
[2016-09-11 16:34] VITALS: BP 143/66
--- NOTE | 2016-09-11 17:59 | NUR ---
ALERT AND ORIENTED X4. SITTING UP IN CHAIR. WRITTEN PRESCRIPTION PROVIDED. DISCHARGE INSTRUCTIONS GIVEN VERBALLY AND WRITTEN. DISCHARGE PAPERS SIGNED ON CHART. ESCORT TO RIDE VIA WHEELCHAIR. REMAINS FREE FROM INJURY.
== END 2016-09-11 18:31 | disposition home health service (06) | DRG 682 ==
LOC: D.ER 14:20 → D.M2 17:54 → D.ICU 17:54 → D.M2 19:19 → D.ICU 09-06 12:40 → D.M2 09-09 13:49
PROVIDERS: Emergency Medicine; Internal Medicine Gastroenterology; Internal Medicine Nephrology; Physician Assistant; ADMIT Family Medicine
PROC: 0T9B70Z Drainage of Bladder with Drainage Device, Via Natural or Artificial Opening (ICD-10-PCS; principal; 2016-09-04)
PROC: 0D9670Z Drainage of Stomach with Drainage Device, Via Natural or Artificial Opening (ICD-10-PCS; 2016-09-06)
DX: N17.0 Acute kidney failure with tubular necrosis (principal); K57.91 Diverticulosis of intestine, part unspecified, without perforation or abscess with bleeding; I13.0 Hypertensive heart and chronic kidney disease with heart failure and stage 1 through stage 4 chronic kidney disease, or unspecified chronic kidney disease; N39.0 Urinary tract infection, site not specified; E87.2 Acidosis; I50.22 Chronic systolic (congestive) heart failure; E87.5 Hyperkalemia; E11.22 Type 2 diabetes mellitus with diabetic chronic kidney disease; N18.3 Chronic kidney disease, stage 3 (moderate); I25.10 Atherosclerotic heart disease of native coronary artery without angina pectoris; K59.00 Constipation, unspecified; W19.XXXA Unspecified fall, initial encounter; N13.9 Obstructive and reflux uropathy, unspecified; K76.0 Fatty (change of) liver, not elsewhere classified; M51.36 Other intervertebral disc degeneration, lumbar region; Z95.5 Presence of coronary angioplasty implant and graft; Z95.1 Presence of aortocoronary bypass graft

== ENCOUNTER 2016-09-27 21:13 | Emergency (ER) | payer MEDICARE ==
[2016-09-05 10:53] VITALS: BMI 30.7
[~2016-09-27 21:13] MED LIST changes: +BETAPACE 120 M120 MG PO; +CARDURA4 MG PO; +FLOMAX0.4 MG PO; +FUROSEMIDE40 MG PO; +NOVOLIN N100 U/ML SQ; +PREDNISONE10 MG PO; +ULTRAM50 MG PO
[2016-09-27 23:11] LABS: BASOPHILS 0.2 % (0.0-2.0); EOSINOPHILS 0.4 % (0-7); HEMOGLOBIN 10.8 g/dL (13.5-17.5); IMMATURE GRANULOCYTES 1.1 % (0-5); LYMPHOCYTES 10.5 % (15-50); MCH 28.6 pg (26.0-34.0); MCHC 31.8 g/dL (31.0-37.0); MCV 90.2 fL (80.0-100.0); MONOCYTES 7.7 % (2-11); NEUTROPHILS 80.1 % (40-80); RBC 3.77 10x6/uL (4.20-6.10); RDW 16.2 % (11.5-14.5); WBC 9.5 10x3/uL (4.8-10.8)
[2016-09-27 23:14] LABS: PLATELET COUNT 198 10x3/uL (130-400)
[2016-09-27 23:25] LABS: ALBUMIN 2.5 g/dL (3.4-5.0); ANION GAP 12.3 mmol/L (8-16); BILIRUBIN - TOTAL 0.5 mg/dL (0.2-1.3); CALCIUM 8.2 mg/dL (8.5-10.1); CARBON DIOXIDE 26.4 mmol/L (21.0-32.0); CREATININE - SERUM 2.8 mg/dL (0.6-1.3); POTASSIUM - SERUM 3.7 mmol/L (3.5-5.1)
== END 2016-09-28 00:38 | disposition home or self-care (01) ==
LOC: D.ER 21:13
PROVIDERS: Emergency Medicine
DX: E11.649 Type 2 diabetes mellitus with hypoglycemia without coma (principal); Z79.4 Long term (current) use of insulin; I12.9 Hypertensive chronic kidney disease with stage 1 through stage 4 chronic kidney disease, or unspecified chronic kidney disease; N18.9 Chronic kidney disease, unspecified; I25.810 Atherosclerosis of coronary artery bypass graft(s) without angina pectoris

== ENCOUNTER 2016-09-28 20:34 | Inpatient (IN) | payer MEDICARE ==
[2016-09-28 21:32] LABS: BASOPHILS 0.1 % (0.0-2.0); EOSINOPHILS 0.8 % (0-7); HEMATOCRIT 31.7 % (42.0-54.0); IMMATURE GRANULOCYTES 1.3 % (0-5); MCH 28.4 pg (26.0-34.0); MCHC 31.5 g/dL (31.0-37.0); MCV 90.1 fL (80.0-100.0); MEAN PLATELET VOLUME 9.4 fL (7.4-10.4); MONOCYTES 11.8 % (2-11); PLATELET COUNT 187 10x3/uL (130-400); RBC 3.52 10x6/uL (4.20-6.10); RDW 16.6 % (11.5-14.5); WBC 9.2 10x3/uL (4.8-10.8)
[2016-09-28 21:56] LABS: ALBUMIN 2.4 g/dL (3.4-5.0); ALKALINE PHOSPHATASE 87 U/L (46-116); ALT (SGPT) 26 U/L (10-68); BILIRUBIN - TOTAL 0.48 mg/dL (0.2-1.3); CALC OSMOLALITY 289 mosm/kg (275-300); CARBON DIOXIDE 26.7 mmol/L (21.0-32.0); CHLORIDE - SERUM 105 mmol/L (98-107); CKMB 1.2 U/L (0.0-3.6); CREATINE KINASE 45 UL (21-232); CREATININE - SERUM 2.8 mg/dL (0.6-1.3); POTASSIUM - SERUM 3.5 mmol/L (3.5-5.1); PROTEIN - SERUM 5.8 g/dL (6.4-8.2); SODIUM 139 mmol/L (136-145); TROPONIN-I 0.035 ng/mL (0.000-0.060); UREA NITROGEN 54 mg/dL (7-18); eGFR NON AFRICAN AMERICAN 23 mL/min (90-120)
[2016-09-28 21:58] LABS: GLUCOSE 36 mg/dL (74-106)
[2016-09-28 22:58] LABS: APPEARANCE CLEAR (CLEAR); BILIRUBIN NEGATIVE (NEGATIVE); COLOR YELLOW (YELLOW); GLUCOSE NEGATIVE (NEGATIVE); KETONE NEGATIVE (NEGATIVE); LEUKOCYTE ESTERASE TRACE (NEGATIVE); NITRITE NEGATIVE (NEGATIVE); PROTEIN TRACE mg/dL (NEGATIVE); UROBILINOGEN NORMAL (NORMAL)
[2016-09-28 22:59] LABS: BACTERIA FEW /hpf (NONE SEEN); RED CELLS - URINE 0-5 /hpf (0-5)
[2016-09-29 01:14] VITALS: BP 136/54; BMI 29.3
--- NOTE | 2016-09-29 02:04 | NUR ---
RESTING WITH EYES CLOSED, NO DISTRES NOTED, SR'S UP, CL IN REACH
[2016-09-29 05:39] LABS: BASOPHILS 0.3 % (0.0-2.0); EOSINOPHILS 0.8 % (0-7); HEMATOCRIT 29.7 % (42.0-54.0); HEMOGLOBIN 9.7 g/dL (13.5-17.5); IMMATURE GRANULOCYTES 1.7 % (0-5); LYMPHOCYTES 17.8 % (15-50); MCH 29.4 pg (26.0-34.0); MCHC 32.7 g/dL (31.0-37.0); NEUTROPHILS 71.4 % (40-80); PLATELET COUNT 190 10x3/uL (130-400); RDW 16.2 % (11.5-14.5); WBC 7.8 10x3/uL (4.8-10.8)
[2016-09-29 06:21] LABS: ALBUMIN 2.1 g/dL (3.4-5.0); ANION GAP 13.2 mmol/L (8-16); BILIRUBIN - TOTAL 0.4 mg/dL (0.2-1.3); CALCIUM 7.6 mg/dL (8.5-10.1); CARBON DIOXIDE 24.6 mmol/L (21.0-32.0); CREATININE - SERUM 2.7 mg/dL (0.6-1.3); POTASSIUM - SERUM 3.8 mmol/L (3.5-5.1); PROTEIN - SERUM 4.7 g/dL (6.4-8.2); TROPONIN-I 0.028 ng/mL (0.000-0.060)
--- NOTE | 2016-09-29 07:30 | NUR ---
RECIEVED PATIENT DURING WALKING ROUNDS, PT RESTING IN BED WITH COMPLAINTS OF SLIGHT PAIN IN HIS HIP, PT STATES HE HAS HAD THIS PAIN FOR APPROXIMATELY 2 MONTHS, NO HX OF FALLS. RECIEVED FROM OPERATOR TECHNICIAN THAT PT GLUCOSE WITH AM LABS WAS 266, RECHECKED FINGER STICK AT THIS TIME, IT WAS 185. NO INSULIN GIVEN. ASSESSMENT DONE PER FLOWSHEET. BED IN LOW POSITION AND CALL LIGHT WITHIN REACH. WILL CONTINUE TO MONITOR.
--- NOTE | 2016-09-29 08:10 | NUR ---
PATIENT IN LEFT LATERAL POSITION RESTING WITH EYES CLOSED. RESPIRATIONS EVEN AND UNLABORED. SIDE RAILS UP X2. BED IN LOW POSITION. CALL LIGHT IN REACH.
[2016-09-29 08:40] VITALS: BP 154/65
[2016-09-29 12:34] VITALS: BP 126/81
--- NOTE | 2016-09-29 13:15 | NUR ---
FSBS 143 AT 1116, PT HAD EATEN A FULL BREAKFAST. INFORMED DR. AVALOS AT THIS TIME OF PT TRENDING BLOOD GLUCOSE, DR SAID ORDERS WOULD BE PLACED NEEDED. ALSO INFORMED DR THAT PT HAS HAD NO CHANGE IN ROUTINE OR DIET AND HAD BEEN DIABETIC SINCE 1993. WILL CONTINUE PLAN OF CARE.
[2016-09-29 16:34] VITALS: BP 142/64
[2016-09-29 21:36] VITALS: BP 140/53
--- NOTE | 2016-09-30 00:33 | NUR ---
x1 STAND BY ASSIST TO TAKE PATIENT TO RESTROOM
--- NOTE | 2016-09-30 01:13 | NUR ---
PATIENT REPOSITIONED IN BED FOR RELIEVING SOME PAIN AND DISCOMFORT. ROLLED ONTO RIGHT SIDE PER PATIENT REQUEST
--- NOTE | 2016-09-30 05:24 | NUR ---
PT IS AWAKE WATCHING TV WITH QUIET EASY RESPIRATIONS. HE IS TAKING NORCO FOR HIP PAIN AND SEEMS TO BE COMFORTABLE NOW. HIS SCD'S ARE IN THE ROOM BUT OFF. HE IS WEAK SO HE HAS A YULISA. THE BED IS LOW, RAILS UP X'S 2 WITH THE CALL LIGHT AT HAND.
[2016-09-30 05:52] LABS: BASOPHILS 0.2 % (0.0-2.0); EOSINOPHILS 0.8 % (0-7); HEMATOCRIT 30.6 % (42.0-54.0); HEMOGLOBIN 9.8 g/dL (13.5-17.5); IMMATURE GRANULOCYTES 1.7 % (0-5); LYMPHOCYTES 17.4 % (15-50); MCH 28.7 pg (26.0-34.0); MCV 89.5 fL (80.0-100.0); MEAN PLATELET VOLUME 9.9 fL (7.4-10.4); NEUTROPHILS 70.9 % (40-80); PLATELET COUNT 206 10x3/uL (130-400); RBC 3.42 10x6/uL (4.20-6.10); RDW 16.4 % (11.5-14.5); WBC 8.6 10x3/uL (4.8-10.8)
[2016-09-30 06:18] LABS: ANION GAP 12.9 mmol/L (8-16); CALCIUM 7.8 mg/dL (8.5-10.1); CARBON DIOXIDE 24.7 mmol/L (21.0-32.0); CREATININE - SERUM 2.2 mg/dL (0.6-1.3); POTASSIUM - SERUM 3.6 mmol/L (3.5-5.1)
--- NOTE | 2016-09-30 07:30 | NUR ---
RECIEVED PT DURING WALKING ROUNDS. PT RESTING COMFORTABLY IN BED WITH NO COMPLAINTS OF PAIN OR DISCOMFORT AT THIS TIME. ASSESSMENT DONE PER FLOWSHEET. BED IN LOW POSITION AND CALL LIGHT WITHIN REACH. WILL CONTINUE TO MONITOR.
--- NOTE | 2016-09-30 08:07 | NUR ---
PATIENT IN LOW BOYLE POSITION RESTING WITH EYES CLOSED. RESPIRATIONS EVEN AND UNLABORED. SIDE RAILS UP X2. BED IN LOW POSITION. CALL LIGHT IN REACH.
[2016-09-30 08:18] VITALS: BP 146/72
--- NOTE | 2016-09-30 11:20 | NUR ---
FSBS 184. INSULIN GIVEN PER ORDER AT THIS TIME. WILL CONTINUE TO MONTIOR.
[2016-09-30 11:53] VITALS: BP 158/92
[2016-09-30 16:15] VITALS: BP 150/69
--- NOTE | 2016-09-30 18:10 | NUR ---
FSBS 172, PREPARING PT FOR DISCHARGE PER ORDER.
--- NOTE | 2016-09-30 19:12 | NUR ---
IV REMOVED, PT GIVEN DISCHARGE INSTRUCTIONS AT THIS TIME. PT WILL BE DISCHARGED VIA WHEELCHAIR BY TRACK HOE OPERATOR NURSE.
--- NOTE | 2016-10-12 10:19 | CN ---
PATIENT NAME:MARIAMA ZUÑIGA MEDICAL RECORD: [id number] : 40 LOCATION:D[id number] ADMIT DATE: 09/28/16 ACCOUNT: [id number] CONSULTING PHYSICIAN: DAREN DOLAN MD REFERRING PHYSICIAN: BEATRIZ AVALOS MD DATE OF CONSULTATION: 09/29/2016 DIAGNOSES: 1. Hypoglycemia. 2. Anemia. 3. Renal insufficiency, chronic. 4. Paroxysmal atrial fibrillation. 5. Hypertension. 6. Hyperlipidemia. 7. Coronary artery disease. 8. Status post coronary artery bypass graft surgery, status post coronary stenting. HISTORY OF PRESENT ILLNESS: Mr. Zuñiga presented with noncardiac problems. It appears that we are consulted due to tachycardia. He does have a heart rate of 112, sinus rhythm; however, he has not been on his medications as an outpatient. He does have a history of atrial fibrillation. He is on sotalol 80 b.i.d. as well as carvedilol 25 mg b.i.d. He is not having any chest pain or chest discomfort. PHYSICAL EXAMINATION: GENERAL APPEARANCE: Well-nourished, well-developed, appears stated age. Level of distress, comfortable. PSYCHIATRIC: Mental status, alert, normal affect. Orientation, oriented to time, place and person. EYES: Lids and conjunctiva, noninjected. No discharge, no pallor. ENT: Lips, teeth, gums, normal dentition. Oropharynx, no cyanosis, no pallor. NECK: Carotid arteries, bilateral normal upstroke, no bruits, no thrills. JUGULAR VEINS: No jugular venous pressure or distention. CERVICAL LYMPH NODES: Nontender, nonenlarged. THYROID: Not enlarged. Nontender. No nodules. LUNGS: Respiratory effort, unlabored. CHEST: Normal curvature. No thoracic deformity. No chest wall tenderness. Percussion, resonant. Auscultation, clear. No wheezes, no rales, no rhonchi. CARDIOVASCULAR: Precordial exam, nondisplaced. No heaves or pericardial thrills. Rate and rhythm, regular. Heart sounds, normal S1, normal S2. No S3, no gallop, no rub. Systolic murmur, not heard. Diastolic murmur, not heard. EXTREMITIES: No cyanosis, no edema. Peripheral pulses, full and equal in all extremities, except as noted. No bruits appreciated. ABDOMEN: Soft, nondistended. Normal aorta. No bruit. Nontender. No masses. Liver, nontender, no hepatomegaly. Spleen, nontender, no splenomegaly. MUSCULOSKELETAL: No joint tenderness. No joint swelling. No erythema. NEUROLOGICAL: Normal gait, normal strength, normal tone. SKIN: Warm and dry. REVIEW OF SYSTEMS: The patient reports easy bruising but reports no swollen glands. The patient reports no fever, no night sweats, no significant weight gain, no significant weight loss. No significant exercise tolerance. The patient reports no dry eyes, no irritation, no vision change. Patient reports no difficulty hearing and no ear pain. Patient reports no frequent nose bleeds CONSULT REPORT [id number] STAIR,MARIAMA DK or nose and sinus problems. Patient reports on arm pain on exertion. No shortness of breath while lying down. No history of heart murmur. Patient reports no cough, no wheezing or coughing up blood. Patient reports no abdominal pain, no vomiting. Normal appetite. No diarrhea and not vomiting blood. No nausea and no constipation. Patient reports no incontinence. No difficulty urinating. No hematuria. No increased frequency. Patient reports no muscle aches. No weakness, no arthralgias, no back pain. No swelling of the extremities. Patient reports no abnormal mole, no jaundice, no rashes. Reports no loss of consciousness. No weakness and no numbness. No seizures, dizziness, or headaches. The patient reports no depression, no sleep disturbance, feeling safe in a relationship and no alcohol abuse. Patient reports on fatigue. Reports no runny nose or sinus pressure. No itching, no hives, and no frequent sneezing. OVERALL IMPRESSION: From a cardiac standpoint, all we need to do is restart his cardiac medications, the Coreg and the sotalol. No other cardiac workup or treatment is necessary. TRANSINT:[id number] Voice Confirmation ID: [id number] DOCUMENT ID: [id number] DAREN DOLAN MD at 1019 CC: [id number] DICTATION DATE: 09/29/16 0959 RUSSIAN HISTORY PROFESSOR: 09/29/16 1016 DIS IN 09/30/16 [place] [address]
--- NOTE | 2017-02-06 12:30 | DS ---
PATIENT:MARIAMA ZUÑIGA :40 MEDICAL RECORD: [id number] DISCHARGE SUMMARY ADMISSION DATE: 09/28/16 DISCHARGE DATE: 09/30/16 DATE OF ADMISSION: 09/28/2016. DATE OF DISCHARGE: 09/30/2016. DISCHARGE DIAGNOSES: 1. Hypoglycemia. 2. Chronic kidney disease III. 3. Paroxysmal atrial fibrillation. 4. Anemia of chronic kidney disease. 5. Hyperlipidemia. 6. Hypertension. 7. Congestive heart failure. CONSULTS: Viral Macdonald M.D. IMAGES AND STUDIES: 1. Chest x-ray, which shows stable cardiomegaly. 2. CT of the head, which shows no acute intracranial abnormalities. 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 There is some mild burden of the white matter consistent with small-vessel ischemic changes and some mild cerebral and cerebellar volume loss. 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 He was admitted for hypoglycemia. This had been occurring in the evenings before supper. He had had no syncope or chest pain. He was admitted for medical management of his blood sugars. Due to his cardiovascular history, Cardiology was consulted. From a cardiovascular standpoint, his home antiarrhythmic medications were continued. He underwent a CT of the head, which did not show any acute pathology. His diabetic meds were placed on hold and he was placed on a low insulin sliding scale. He did stabilize and was thought to be stable for discharge home. He was to follow up in the outpatient setting with his PCP as well as his soldering machine operator, Dr. Aguilar. See med rec. TRANSINT:[id number] Voice Confirmation ID: [id number] DOCUMENT ID: [id number] Dictated By: FABY MONSON I have interviewed/examined the above patient and agree with these documented findings. BEATRIZ AVALOS MD at 1620 at 1222 CC: [id number] DICTATION DATE: 02/04/17 1729 SNOW PLOW OPERATOR: 02/05/17 0030 DIS IN 09/30/16 [id number] [place] [address]
== END 2016-09-30 19:17 | disposition home or self-care (01) | DRG 638 ==
LOC: D.ER 20:34 → D.MS 23:07
PROVIDERS: Family Medicine; ADMIT Family Medicine
DX: E11.649 Type 2 diabetes mellitus with hypoglycemia without coma (principal); I13.0 Hypertensive heart and chronic kidney disease with heart failure and stage 1 through stage 4 chronic kidney disease, or unspecified chronic kidney disease; E11.22 Type 2 diabetes mellitus with diabetic chronic kidney disease; N18.3 Chronic kidney disease, stage 3 (moderate); E11.40 Type 2 diabetes mellitus with diabetic neuropathy, unspecified; D63.1 Anemia in chronic kidney disease; E78.5 Hyperlipidemia, unspecified; I50.9 Heart failure, unspecified; I25.10 Atherosclerotic heart disease of native coronary artery without angina pectoris; Z95.5 Presence of coronary angioplasty implant and graft; Z95.1 Presence of aortocoronary bypass graft; Z87.891 Personal history of nicotine dependence; I48.0 Paroxysmal atrial fibrillation

== ENCOUNTER 2016-10-01 13:52 | Emergency (ER) | payer MEDICARE ==
[2016-10-01 14:36] LABS: BASOPHILS 0.2 % (0.0-2.0); EOSINOPHILS 0.9 % (0-7); HEMOGLOBIN 10.1 g/dL (13.5-17.5); IMMATURE GRANULOCYTES 1.6 % (0-5); LYMPHOCYTES 12.5 % (15-50); MCH 28.4 pg (26.0-34.0); MCHC 31.6 g/dL (31.0-37.0); MCV 89.9 fL (80.0-100.0); MEAN PLATELET VOLUME 9.3 fL (7.4-10.4); MONOCYTES 8.1 % (2-11); NEUTROPHILS 76.7 % (40-80); PLATELET COUNT 218 10x3/uL (130-400); RBC 3.56 10x6/uL (4.20-6.10); RDW 16.1 % (11.5-14.5); WBC 8.7 10x3/uL (4.8-10.8)
[2016-10-01 14:52] LABS: ALBUMIN 2.3 g/dL (3.4-5.0); ANION GAP 13.2 mmol/L (8-16); BILIRUBIN - TOTAL 0.52 mg/dL (0.2-1.3); CALCIUM 8.4 mg/dL (8.5-10.1); CARBON DIOXIDE 27.6 mmol/L (21.0-32.0); POTASSIUM - SERUM 3.8 mmol/L (3.5-5.1); PROTEIN - SERUM 5.8 g/dL (6.4-8.2)
[2016-10-01 15:57] LABS: HEMOGLOBIN A1C 7.1 % (4.8-6.0)
== END 2016-10-01 19:30 | disposition home or self-care (01) ==
LOC: D.ER 13:52
PROVIDERS: Emergency Medicine
DX: E11.649 Type 2 diabetes mellitus with hypoglycemia without coma (principal); Z79.4 Long term (current) use of insulin; I50.9 Heart failure, unspecified; I12.9 Hypertensive chronic kidney disease with stage 1 through stage 4 chronic kidney disease, or unspecified chronic kidney disease; N18.9 Chronic kidney disease, unspecified

== ENCOUNTER 2016-11-21 15:18 | Inpatient (IN) | payer MEDICARE ==
[~2016-11-21] VITALS: Ht 180.3 cm; Wt 88.0 kg
[2016-11-21 16:32] LABS: BASOPHILS 0.7 % (0-2); HEMATOCRIT 31.7 % (42.0-54.0); HEMOGLOBIN 9.8 g/dL (13.5-17.5); IMMATURE GRANULOCYTES 1.3 % (0-5); LYMPHOCYTES 22.8 % (15-50); MCH 29.1 pg (26.0-34.0); MCHC 30.9 g/dL (31.0-37.0); MCV 94.1 fL (80.0-100.0); MEAN PLATELET VOLUME 9.9 fL (7.4-10.4); MONOCYTES 6.9 % (2-11); NEUTROPHILS 65.3 % (40-80); RBC 3.37 10x6/uL (4.20-6.10); RDW 17.4 % (11.5-14.5); WBC 7.6 10x3/uL (4.8-10.8)
[2016-11-21 16:44] LABS: INR 0.97 (0.85-1.17); PROTIME 12.8 SECONDS (11.6-15.0)
[2016-11-21 16:45] VITALS: BP 143/34; BMI 27.1
[2016-11-21 16:48] LABS: PLATELET COUNT 296 10x3/uL (130-400)
[2016-11-21 17:04] LABS: ANION GAP 17.1 mmol/L (8-16); BILIRUBIN - TOTAL 0.25 mg/dL (0.2-1.3); CALCIUM 8.3 mg/dL (8.5-10.1); CARBON DIOXIDE 22.9 mmol/L (21.0-32.0); PROTEIN - SERUM 6.1 g/dL (6.4-8.2)
[2016-11-21 19:00] VITALS: BP 138/54
--- NOTE | 2016-11-21 19:00 | NUR ---
BEDSIDE REPORT RECEIVED AND CARE OF PT ASSUMED. PT C/O WANTING FOOD AND PAIN MEDICATION. WILL CALL PHYSICIAN FOR ORDER FOR PAIN MED AND CHECK ON DIET ORDERS.
--- NOTE | 2016-11-21 19:15 | NUR ---
RECEIVED UPDATED ORDERS FOR INSULIN FROM SPOUSE. PLACED IN CHART AND RECEIVED ORDERS TO CHANGE INSULIN ORDERS.
--- NOTE | 2016-11-21 19:30 | NUR ---
GAVE TURKEY SANDWICH AND DIET SODA. RECEIVED ORDER FOR PAIN MEDICATIONS.
--- NOTE | 2016-11-21 21:04 | NUR ---
GAVE HS MEDICATIONS TO INCLUDE NORCO 7.5 PER NEW PRN ORDER. FSBS 173 THIS CHECK REQUIRING COVERAGE PER SLIDING SCALE WITH 4 UNITS OF HUMALOG. GAVE 10 UNITS LANTUS PER ORDER.
--- NOTE | 2016-11-21 21:30 | NUR ---
SPOUSE BROUGHT FOOD FROM HOME FOR PT....SANDWICHES.
[2016-11-22 04:00] VITALS: BP 163/50
[2016-11-22 05:08] LABS: BASOPHILS 0.8 % (0-2); EOSINOPHILS 3.6 % (0-7); HEMATOCRIT 28.9 % (42.0-54.0); HEMOGLOBIN 8.9 g/dL (13.5-17.5); IMMATURE GRANULOCYTES 1.9 % (0-5); LYMPHOCYTES 26.7 % (15-50); MCH 29.5 pg (26.0-34.0); MCHC 30.8 g/dL (31.0-37.0); MCV 95.7 fL (80.0-100.0); MEAN PLATELET VOLUME 10.5 fL (7.4-10.4); MONOCYTES 11.4 % (2-11); NEUTROPHILS 55.6 % (40-80); PLATELET COUNT 312 10x3/uL (130-400); RBC 3.02 10x6/uL (4.20-6.10); RDW 17.6 % (11.5-14.5); WBC 6.3 10x3/uL (4.8-10.8)
[2016-11-22 05:40] LABS: ALBUMIN 2.7 g/dL (3.4-5.0); BILIRUBIN - TOTAL 0.18 mg/dL (0.2-1.3); CALCIUM 8.3 mg/dL (8.5-10.1); CARBON DIOXIDE 23.2 mmol/L (21.0-32.0); CREATININE - SERUM 3.2 mg/dL (0.6-1.3); POTASSIUM - SERUM 5.2 mmol/L (3.5-5.1); PROTEIN - SERUM 5.5 g/dL (6.4-8.2)
[2016-11-22 07:54] VITALS: BP 151/68
--- NOTE | 2016-11-22 09:33 | NUR ---
Patient Name: MARIAMA ZUÑIGA Admission Status: Elective Accout number: [id number] Admission Date: 11-21-2016 : 1940 Admission Diagnosis:ACUTE EMBOLISM AND THROMBOSIS OF RIGHT POPLITEAL VEIN Attending: CASSANDRA Current LOS: 1 Anticipated DC Date: 11-26-2016 Planned Disposition: Home Primary Insurance: [employer] CHOICE PPO MCR ADVANT Discharge Planning Comments: CM MET WITH PATIENT REGARDING D/C NEEDS AND PLANS. PATIENT STATED HE LIVES WITH HIS (JOSE ANGEL) AND SHE WILL DRIVE HIM HOME AT DISCHARGE. PATIENT STATED HIS HOME IS SAFE AND HAS 3 STEPS W/RAILS TO ENTER HOME AND NO STAIRS INSIDE. PATIENTS PCP IS DR. CHARLES AND PHARMACY IS [facility] ON [address]. PATIENT STATED HE IS INDEPENDENT AND HAS A WALKER, SHOWER CHAIR, BS COMMODE, AND GLUCOMETER (CHECKS 3X DAY) AT HOME. PATIENT DOES NOT THINK HE NEEDS HOME HEALTH AT THIS TIME. CM WILL CONTINUE T0 FOLLOW PATIENT WITH D/C NEEDS AND PLANS. PCP DR[facility] ON [address] [phone] JOSE ANGEL () [phone] SAUL (SON) [phone] Potato Chip Frier: Marthakay Randolph Is the patient Alert and Oriented? Yes 0 * How many steps to enter\exit or inside your home? 3 W/RAILS 0 * PCP DR. CHARLES 0 * Pharmacy [facility] ON [address] 0 * Preadmission Environment Home with Family 0 * ADLs Independent 0 * Equipment Bedside Commode Glucometer Shower Chair Walker 0 * List name and contact numbers for known caregivers / representatives who currently or will assist patient after discharge: JOSE ANGEL (SPOUSE) [phone] SAUL (SON) [phone] * Community resources currently utilized None 0 * Additional services required to return to the preadmission environment? Yes 0 * Can the patient safely return to the preadmission environment? Yes 0 * Has this patient been hospitalized within the prior 30 days at any hospital? No 0 Grand Total: 0
--- NOTE | 2016-11-22 09:53 | NUR ---
PAIN PILL GIVEN FOR PAIN5/10 AT THIS TIME. STATES COULD NOT TOLERATE ANY LONGER. CALL LIGHT IN REACH
[2016-11-22 12:19] VITALS: BP 165/57
[2016-11-22 13:40] VITALS: Ht 180.3 cm; Wt 88.0 kg
[2016-11-22 15:37] VITALS: BP 151/61
--- NOTE | 2016-11-22 19:00 | NUR ---
BEDSIDE REPORT RECEIVED AND CARE OF PT ASSUMED. PT LYING ON LEFT SIDE WITH EYES CLOSED AND UNLABORED BREATHING. WILL MONITOR CLOSELY FOR NEEDS.
[2016-11-22 20:00] VITALS: BP 170/75
--- NOTE | 2016-11-22 20:00 | NUR ---
FSBS 113 THIS CHECK. GAVE HS SNACK OF SKIM MILK AND ZEENAT CRACKERS.
--- NOTE | 2016-11-22 21:05 | NUR ---
HS MEDICATIONS GIVEN. FSBS 113 THIS CHECK REQUIRING NO COVERAGE PER SLIDING SCALE.
--- NOTE | 2016-11-22 21:55 | NUR ---
GAVE NORCO 7.5 PO PER PRN ORDER, PER PT REQUEST FOR PAIN IN RIGHT LEG AT LEVEL 9/10. WILL MONITOR FOR EFFECTIVENESS. SIDE RAILS UP X2 FOR SAFETY.
[2016-11-23 00:05] VITALS: BP 165/66
--- NOTE | 2016-11-23 02:44 | NUR ---
PROVIDED NEW GRIPPER SOCKS AND WALKER FOR SAFER MOBILITY AMBULATING IN ROOM.
--- NOTE | 2016-11-23 02:45 | NUR ---
GAVE X2 ORANGE SHERBET FOR SNACK.
[2016-11-23 04:00] VITALS: BP 178/67
[2016-11-23 06:42] LABS: BASOPHILS 0.6 % (0-2); EOSINOPHILS 3.7 % (0-7); HEMATOCRIT 28.9 % (42.0-54.0); HEMOGLOBIN 9.1 g/dL (13.5-17.5); IMMATURE GRANULOCYTES 1.7 % (0-5); LYMPHOCYTES 21.5 % (15-50); MCH 29.8 pg (26.0-34.0); MCHC 31.5 g/dL (31.0-37.0); MCV 94.8 fL (80.0-100.0); MEAN PLATELET VOLUME 10.3 fL (7.4-10.4); MONOCYTES 9.1 % (2-11); NEUTROPHILS 63.4 % (40-80); PLATELET COUNT 304 10x3/uL (130-400); RBC 3.05 10x6/uL (4.20-6.10); RDW 17.4 % (11.5-14.5)
[2016-11-23 06:43] LABS: WBC 7.9 10x3/uL (4.8-10.8)
[2016-11-23 06:57] LABS: ALBUMIN 2.6 g/dL (3.4-5.0); ANION GAP 12.6 mmol/L (8-16); BILIRUBIN - TOTAL 0.23 mg/dL (0.2-1.3); CALCIUM 8.4 mg/dL (8.5-10.1); CARBON DIOXIDE 22.1 mmol/L (21.0-32.0); CREATININE - SERUM 2.8 mg/dL (0.6-1.3); POTASSIUM - SERUM 4.7 mmol/L (3.5-5.1)
[2016-11-23 08:11] VITALS: BP 134/61
--- NOTE | 2016-11-23 10:28 | NUR ---
SPOKE WITH JOSE ANGEL ZUÑIGA(PATIENT'S ) NOTIFIED HER THE PATIENT IS MOVING TO ROOM 2211.
[2016-11-23 15:57] VITALS: BP 162/70
--- NOTE | 2016-11-23 19:33 | NUR ---
PT LYING IN BED AWAKE VISITING WITH , ASSESSMENT COMPLETED, DENIES NEEDS AT THIS TIME, SR'S UP CL IN REACH, WILL MONITOR
[2016-11-23 20:00] VITALS: BP 187/67
--- NOTE | 2016-11-23 20:42 | NUR ---
MEDS GIVEN PER MAR ALONG WITH PRN NORCO FOR C/O HIP/LEG PAIN, KAYDEN WELL, SR'S UP, CL IN REACH
--- NOTE | 2016-11-23 23:10 | NUR ---
PT UP TO RESTROOM WITHOUT DIFFICULTY, RETURNED TO BED, FALL PRECAUTIONS IN PLACE, CL IN REACH
[2016-11-24] VITALS: BP 179/59
--- NOTE | 2016-11-24 01:18 | NUR ---
PRN NORCO GIVEN PER REQUEST FOR C/O HIP PAIN, KAYDEN WELL, FALL PRECAUTIONS IN PLACE, CL IN REACH
[2016-11-24 04:00] VITALS: BP 123/61
[2016-11-24 05:15] LABS: CA 19-9 10 U/mL (0-35); CEA 3.9 ng/mL (0.0-4.7)
[2016-11-24 05:35] LABS: BASOPHILS 0.5 % (0-2); EOSINOPHILS 3.2 % (0-7); HEMOGLOBIN 9.4 g/dL (13.5-17.5); LYMPHOCYTES 17.6 % (15-50); MCH 29.7 pg (26.0-34.0); MCHC 31.3 g/dL (31.0-37.0); MCV 94.6 fL (80.0-100.0); MEAN PLATELET VOLUME 10.2 fL (7.4-10.4); NEUTROPHILS 66.7 % (40-80); PLATELET COUNT 306 10x3/uL (130-400); RBC 3.17 10x6/uL (4.20-6.10); RDW 17.3 % (11.5-14.5); WBC 9.2 10x3/uL (4.8-10.8)
[2016-11-24 06:14] LABS: ALBUMIN 2.7 g/dL (3.4-5.0); ANION GAP 14.2 mmol/L (8-16); BILIRUBIN - TOTAL 0.28 mg/dL (0.2-1.3); CALCIUM 8.6 mg/dL (8.5-10.1); CARBON DIOXIDE 22.6 mmol/L (21.0-32.0); CREATININE - SERUM 2.6 mg/dL (0.6-1.3); POTASSIUM - SERUM 4.8 mmol/L (3.5-5.1); PROTEIN - SERUM 6.4 g/dL (6.4-8.2)
[2016-11-24 07:23] LABS: FOLATE (FOLIC ACID) - SERUM 9.3 ng/mL (>3.0)
--- NOTE | 2016-11-24 08:07 | NUR ---
AWAKE AND ALERT. ORIENTED X3. NO C/O AT THIS TIME. LUNGS ARE CLEAR BILATERALLY, NO COUGH NOTED. SKIN IS INTACT WITHOUT REDNESS EXCEPT TO RIGHT LOWER EXTREMETY WHICH IS REDDENED AND EDEMATOUS AT 2 PLUS. REPORTS PAIN TO RIGHT LEG . SL TO LEFT FOREARM IS PATENT WITHOUT REDNESS AT INSERTION SITE. DENIES NEEDS.
[2016-11-24 08:14] VITALS: BP 157/65
--- NOTE | 2016-11-24 10:00 | NUR ---
RESTING QUIETLY IN BED. DENIES NEEDS.
--- NOTE | 2016-11-24 10:39 | CN ---
PATIENT NAME:MARIAMA ZUÑIGA MEDICAL RECORD: [id number] : 40 LOCATION:D.[facility] ADMIT DATE: 11/21/16 ACCOUNT: [id number] CONSULTING PHYSICIAN: AKHIL FITCH MD REFERRING PHYSICIAN: AAYUSH MATHEWS MD DATE OF CONSULTATION: 11/22/2016 HISTORY OF PRESENT ILLNESS: This is a 76-year-old gentleman with history of coronary artery disease, status post intervention, has a history of atrial fibrillation, as well as bleeding back in August, etiology unclear at that time, and popliteal DVT. He has had ongoing issues with intolerance to antiplatelets in the past. He has been able to tolerate NOACs; however, cannot afford Xarelto, this was stopped when he remained in sinus rhythm. We are asked to see him concerning his cardiovascular status. PAST MEDICAL HISTORY: 1. History of hypertension. 2. Diabetes mellitus. 3. Coronary artery disease. 4. Atrial fibrillation. 5. Peripheral neuropathy. 6. Dyslipidemia. 7. Debility. ALLERGIES: PENICILLIN. MEDICATIONS: Typically include carvedilol 25 b.i.d., Cardura 4 b.i.d., sotalol 120 b.i.d., Lasix 80 daily. SOCIAL HISTORY: Lives here in [place], does have problems with ADLs due general debility. He is a nonsmoker. REVIEW OF SYSTEMS: The patient reports easy bruising but reports no swollen glands. The patient reports no fever, no night sweats, no significant weight gain, no significant weight loss. No significant exercise tolerance. The patient reports no dry eyes, no irritation, no vision change. Patient reports no difficulty hearing and no ear pain. Patient reports no frequent nose bleeds or nose and sinus problems. Patient reports on arm pain on exertion. No shortness of breath while lying down. No history of heart murmur. Patient reports no cough, no wheezing or coughing up blood. Patient reports no abdominal pain, no vomiting. Normal appetite. No diarrhea and not vomiting blood. No nausea and no constipation. Patient reports no incontinence. No difficulty urinating. No hematuria. No increased frequency. Patient reports no muscle aches. No weakness, no arthralgias, no back pain. No swelling of the extremities. Patient reports no abnormal mole, no jaundice, no rashes. Reports no loss of consciousness. No weakness and no numbness. No seizures, dizziness, or headaches. The patient reports no depression, no sleep disturbance, feeling safe in a relationship and no alcohol abuse. Patient reports on fatigue. Reports no runny nose or sinus pressure. No itching, no hives, and no frequent sneezing. PHYSICAL EXAMINATION: Early. GENERAL: Elderly gentleman in no acute distress. VITAL SIGNS: Blood pressure 151/68, pulse 63 and regular. HEENT: Normocephalic, atraumatic. CONSULT REPORT [id number] STAIR,MARIAMA DK NECK: No bruits. HEART: Regular, II/ systolic ejection murmur. LUNGS: Good air excursion. ABDOMEN: Soft and nontender. EXTREMITIES: Pulses 2+, 1+ edema on the right. IMPRESSION: Popliteal deep venous thrombosis, paroxysmal atrial fibrillation. Main difficulty with NOACs in the past have been financial. We will start Eliquis 2.5 b.i.d. Should be able to find drug assistance program to help with financial burden. Further recommendations based on the above. TRANSINT:[id number] Voice Confirmation ID: [id number] DOCUMENT ID: [id number] AKHIL FITCH MD at 1039 CC: [id number] DICTATION DATE: 11/22/16 0837 BLOOD BANK BOOKING CLERK: 11/22/16 2158 ADM IN [id number] [place] [address]
[2016-11-24 12:05] VITALS: BP 135/63
--- NOTE | 2016-11-24 12:15 | NUR ---
FSBS 141. NO COVERAGE REQUIRED. UP TO BR PER SELF. DENIES NEEDS. REQUESTED AND GIVEN ONE HYDROCODONE PO FOR C/O BACK PAIN LEVEL 8. INSTRUCTED HE COULD HAVE THIS EVERY 4 HOURS AND NOT TO WAIT SO LONG BETWEEN DOSES. HE STATED UNDERSTANDING OF SAME.
[2016-11-24] MEDS ORDERED: ELIQUIS2.5 MG PO (13:41)
[2016-11-24] MEDS ORDERED: PROTONIX40 MG PO (13:42)
[2016-11-24] MEDS ORDERED: LANTUS INSULIN10 ML SC (13:43)
--- NOTE | 2016-11-24 14:30 | NUR ---
DISCHARGED TO HOME AMBULATORY WITH FAMILY. DISCHARGE INSTRUCTIONS GIVEN BOTH VERBALLY AND WRITTEN. ALL QUESTIONS ANSWERED. PATIENT VERBALIZED UNDERSTANDING OF SAME. NEEDED PRESCRIPTIONS ESCRIBED TO [facility]. SL TO LEFT WRIST D/C WITH CATHETER INTACT.
[2016-11-29 10:20] LABS: SPE - A/G RATIO 1.1 (0.7-1.7); SPE - ALPHA-1 GLOBULIN 0.2 g/dL (0.0-0.4); SPE - ALPHA-2 GLOBULIN 1.1 g/dL (0.4-1.0); SPE - BETA GLOBULIN 0.8 g/dL (0.7-1.3); SPE - GAMMA GLOBULIN 0.7 g/dL (0.4-1.8); SPE - M-SPIKE Not Observed g/dL (Not Observed); SPE - TOTAL PROTEIN 5.8 g/dL (6.0-8.5)
[2016-11-29 18:09] LABS: FACTOR II DNA ANALYSIS Negative (())
== END 2016-11-24 14:32 | disposition home or self-care (01) | DRG 299 ==
LOC: D.MS 15:18 → D.SDCHOLD 15:18 → D.MS 15:39
PROVIDERS: Family Medicine; Internal Medicine Hematology & Oncology; ADMIT Emergency Medicine
DX: I82.431 Acute embolism and thrombosis of right popliteal vein (principal); I50.23 Acute on chronic systolic (congestive) heart failure; N17.9 Acute kidney failure, unspecified; I13.0 Hypertensive heart and chronic kidney disease with heart failure and stage 1 through stage 4 chronic kidney disease, or unspecified chronic kidney disease; I48.0 Paroxysmal atrial fibrillation; E11.22 Type 2 diabetes mellitus with diabetic chronic kidney disease; N18.3 Chronic kidney disease, stage 3 (moderate); Z87.891 Personal history of nicotine dependence; E11.42 Type 2 diabetes mellitus with diabetic polyneuropathy; E78.5 Hyperlipidemia, unspecified

== ENCOUNTER 2017-04-23 08:02 | Inpatient (IN) | payer MEDICARE ==
[~2017-04-23] VITALS: Ht 180.3 cm; Wt 101.5 kg
--- NOTE | ~2017-04-23 | HEMODYNAMI ---
PATIENT:MARIAMA ZUÑIGA MEDICAL RECORD: [id number] : 40 LOCATION:[facility] D.2309 ADMISSION DATE: 04/23/17 Generatedon:05/02/201716:26 Patient name: MARIAMA ZUÑIGA Patient #: [id number] SSN: : 1940 Date of study: 05/02/2017 Page: Of Hemodynamic Procedure Report Patient Data Patient Demographics Procedure consent was obtained First Name: MARIAMA Gender: Male Last Name: ZARA : 1940 [facility] Initial: DK Age: 76 year(s) Patient #: [id number] Race: Additional ID: [id number] Contact details [address]: [address] [place] [address] State: [place] City: [place] Zip code: [address] Past Medical History History of disease Date Diagnosis Comments CAD Hypertension Allergies Allergen Reaction Date Comments Reported Penicillins 11/16/2014 Other allergy 05/02/2017 penicillin Admission Admission Data Admission Date: 04/23/2017 Admission Time: 10:44 Arrival Date: 04/23/2017 Arrival Time: 10:44 Admit Source: Other Insurance Payor: Private Room #: [id number] health insurance Height (in.): 70.87 BSA: 2.15 (m2) Height (cm.): 180 BMI: 29.4 (kg/m2) Weight (lbs.): 210 Weight (kg.): 95.25 Lab Results Lab Result Date: 05/02/2017 Lab Result Time: 0:00 Biochemistry Name Units Result Min Max BUN mg/dl 56 --(----)-* 7 18 Creatinine mg/dl 2.8 --(----)-* 0.6 1.3 CBC Name Units Result Min Max Hemoglobin g/dl 9.4 *-(----)-- 13.5 17.5 Procedure Procedure Types Cath Procedure Diagnostic Procedure LHC LHC w/Coronaries w/Grafts PCI Procedure SVG-BMS/FERNY Initial Miscellaneous Procedures Moderate Sedation up to 30 minutes Procedure Description Procedure Date Procedure Date: 05/02/2017 Procedure Start Time: 15:56 Procedure End Time: 16:21 Procedure Staff Name Function Viral Macdonald MD Performing Physician Jeovanny Camejo RN Nurse Beth Fink RT Scrub Deepali Lind RT Monitor Procedure Data Cath Procedure Fluoroscopy Diagnostic fluoroscopy Total fluoroscopy Time: 6.9 time: 6.9 min min Diagnostic fluoroscopy Total fluoroscopy dose: dose: 1069 mGy 1069 mGy Contrast Material Contrast Material Type Amount (ml) Isovue 300 116 Entry Location Entry Primary Successful Side Size Upsize Upsize Entry Closure Succes sful Closure Location (Fr) 1 (Fr) 2 (Fr) Remarks Device Remarks Femoral Right 5 Fr 6 Fr artery Short Estimated blood loss: 5 ml Diagnostic catheters Device Type Used For End Catheter Placement Cordis 5Fr JL 4.0 Left Coronary Catheter (MP) Angiography Diagnostic Infinity 5Fr Left Coronary JL 5 catheter Angiography Cordis 5Fr 3DRC Catheter Multi-vessel (MP) Angiography Diagnostic Infinity 5Fr Multi-vessel AR 2 MOD catheter Angiography Procedure Complications No complications Procedure Medications Medication Administration Route Dosage 0.9% NaCl I.V. 100 ml/hr Oxygen NC 2 l/min Heparin Flush Bag added to field 2 bags (1000units/500ml NS) Lidocaine 2% added to field 20 Heparin Bolus I.V. 4000 units Integrilin (Bolus I.V. 8.5 ml 2mg/ml) Nitroglycerin IC/IA I.C. 300 mcg Cardene I.C. 300 mcg Fentanyl I.V. 25 mcg Plavix P.O. 600 mg Hemodynamics Rest BSA: 2.15 (m2) HGB: 9.4 (g/dl) O2 Consumption: Estimated: 252.93 (ml/min) O2 Con sumption indexed: Estimated:117.64 (ml/min/m) Heart Rate: 78 (bpm) Snapshots Pre Cath Intra NCS Post Cath Vital Signs Time Heart Resp SPO2 etCO2 NIBP (mmHg) Rhythm Pain Sedation Rate (ipm) (%) (mmHg) Status Level (bpm) 15:37:32 75 16 96 0 148/79(118) NSR 0 (11) 10(A) , No pain 15:42:15 69 19 96 0 155/70(129) NSR 0 (11) 10(A) , No pain 15:47:00 81 17 95 9.6 164/86(127) NSR 0 (11) 10(A) , No pain 15:52:19 76 21 96 11.2 153/78(119) NSR 0 (11) 10(A) , No pain 15:57:04 74 20 96 15.6 154/87(123) NSR 0 (11) 10(A) , No pain 16:02:20 63 18 95 14.9 160/88(123) NSR 0 (11) 10(A) , No pain 16:07:06 76 16 94 10.4 157/79(115) NSR 0 (11) 10(A) , No pain 16:11:53 69 19 94 11.2 153/82(130) NSR 0 (11) 10(A) , No pain 16:16:38 72 19 94 15.6 131/67(103) NSR 0 (11) 10(A) , No pain 16:21:18 74 19 93 10.4 143/79(111) NSR 0 (11) 10(A) , No pain Medications Time Medication Route Dose Verified Delivered Reason Notes Effectiveness by by 15:41:35 0.9% NaCl I.V. 100 Ezekiel Ezekiel Per physician ml/hr Erasto Maurer RN RN 15:42:13 Oxygen NC 2 Ezekiel Ezekiel Per physician l/min Erasto Maurer RN RN 15:42:26 Heparin Flush added 2 Ezekiel Ezekiel used for Bag to bags Erasto Maurer procedure (1000units/500ml field MANUEL JACKSON NS) 15:42:39 Lidocaine 2% added 20ml Ezekiel Ezekiel for local to vial Erasto Maurer anesthetic field MANUEL JACKSON 16:05:49 Heparin Bolus I.V. 4000 Ezekiel Ezekiel for verifi ed units Erasto Maurer anticoagulation with dr MANUEL JACKSON taubrown 16:07:37 Integrilin I.V. 8.5 Ezekiel Ezekiel for wasted (Bolus 2mg/ml) ml Erasto Maurer antiplatelet 1.5 ml RN RN therapy of vial 16:13:28 Nitroglycerin I.C. 300 Ezekiel Stratton for IC/IA mcg Erasto Macdonald MD vasodilation RN 16:15:20 Cardene I.C. 300 Ezekiel Stratton for mcg Erasto Macdonald MD vasodilation RN 16:18:05 Fentanyl I.V. 25 Ezekiel Ezekiel for sedation mcg Erasto Maurer RN RN 16:22:40 Plavix P.O. 600 Ezekiel Falcon for mg Erasto Maurer antiplatelet RN RN therapy Procedure Log Time Note 15:00:24 Rupert Troncoso RT(R) sent for patient. Start room use. 15:00:26 Time tracking: Regular hours 15:00:34 Plan of Care:Hemodynamics will remain stable., Cardiac rhythm will remain stable., Comfort level will be maintained., Respiratory function will remain adequate., Patient/ family verbilizes understanding of procedure., Procedure tolerated without complication., Recovers from procedure without complications.. 15:24:40 Patient received from ICU to CCL 1 Alert and oriented. Tansferred to table in Supine position. 15:24:42 Correct patient and procedure confirmed by team. 15:24:42 Warm blankets applied, and sejal hugger turned on for patient comfort. 15:24:48 Signed procedure consent form obtained from patient. 15:24:50 ECG and BP/O2 sat monitors applied to patient. 15:32:01 Vital chart was started 15:32:09 Full Disclosure recording started 15:32:14 H&P Date Dictated: 05/02/2017 New H&P dictated by physician.. 15:32:18 Pre-procedure instructions explained to patient. 15:32:19 Pre-op teaching completed and patient verbalized understanding. 15:32:21 Family in waiting room. 15:32:29 Patient NPO since Midnight. 15:32:45 Patient allergic to Other allergypenicillin 15:32:48 Is the patient allergic to Iodine/contrast media? No. 15:32:51 Was the patient premedicated? No 15:32:55 Is patient on blood thinner?No 15:32:57 Patient diabetic? Yes. 15:33:00 If diabetic: On Metformin? No 15:33:05 Previous problem with sedation/anesthesia? No ? 15:33:07 Snore? Yes 15:33:09 Sleep apnea? No 15:33:10 Deviated septum? No 15:33:11 Opens mouth fully? Yes 15:33:13 Sticks out tongue? Yes 15:33:16 Airway obstruction? No ? 15:33:21 Dentures? Yes in tight 15:33:26 Pre procedure: right dorsailis pedis pulse 1+ Palpable, but thready & weak; easily obliterated 15:33:28 Pre procedure: left dorsailis pedis pulse 1+ Palpable, but thready & weak; easily obliterated 15:33:30 Patient pain scale 0/10 ?. 15:40:17 IV patent on arrival in right wrist with 0.9% NaCl at O. 15:41:32 Lab Result : Hemoglobin 9.4 g/dl 15:41:32 Lab Result : Creatinine 2.8 mg/dl 15:41:32 Lab Result : BUN 56 mg/dl 15:41:35 0.9% NaCl 100 ml/hr I.V. was administered by Ezekiel Maurer RN; Per physician; 15:42:13 Oxygen 2 l/min NC was administered by Ezekiel Maurer RN; Per physician; 15:42:20 Lab results completed and on chart. 15:42:26 Heparin Flush Bag (1000units/500ml NS) 2 bags added to field was administered by Ezekiel Maurer RN; used for procedure; 15:42:34 Right groin area was prepped with chlora-prep and draped in sterile fashion 15:42:36 Sharps counted by scrub and verified by R.N. 15:42:36 Alarms reviewed by R. N. 15:42:39 Lidocaine 2% 20ml vial added to field was administered by Ezekiel Maruer RN; for local anesthetic; 15:45:47 Physician paged 15:45:54 Baseline sample Acquired. 15:49:15 Admit Source: Other 15:49:23 Arrival Date: 04/23/2017 10:44:00 AM 15:49:40 Insurance Payor : Private health insurance 15:49:46 Patient Height : 70.87 inches 15:49:53 Patient Weight : 210 lbs 15:55:37 Physician arrived 15:55:38 --------ALL STOP TIME OUT------ 15:55:39 Final Timeout: patient, procedure, and site verified with staff and physician. All members of the team are in agreement. 15:55:41 Right groin site verified by team. 15:55:44 Physical assessment completed. ASA score P 2 - A patient with mild systemic disease as per Viral Macdonald MD. 15:55:48 Sedation plan: IV Moderate Sedation Versed, Fentanyl 15:55:58 Use device set Femoral Dx 15:56:00 Bag Decanter opened to sterile field. 15:56:00 Acist Syringe opened to sterile field. 15:56:01 Terumo 5Fr Brinson Sheath opened to sterile field. 15:56:01 Medline Cath Pack opened to sterile field. 15:56:02 St Kelby 260cm J .035 wire opened to sterile field. 15:56:04 Diagnostic Infinity 5Fr Multipack catheter opened to sterile field. 15:56:04 Acist Manifold opened to sterile field. 15:56:04 Acist Hand Control opened to sterile field. 15:56:05 Tegaderm 4 x 4 opened to sterile field. 15:56:10 Procedure started. 15:56:14 Local anesthetic to right femoral artery with Lidocaine 2% by Viral Macdonald MD.INITIAL ACCESS ONLY 15:56:35 A 5 Fr sheath was inserted into the Right Femoral artery 15:57:56 A Cordis 5Fr JL 4.0 Catheter (MP) was advanced over the wire and used for Left Coronary Angiography. 15:58:14 LCA angiography performed. 15:58:17 Injector settings: Ml/sec: 3, Volume: 6, 15:58:18 Catheter removed. 15:58:53 A Diagnostic Infinity 5Fr JL 5 catheter was advanced over the wire and used for Left Coronary Angiography. 16:00:12 Catheter removed. 16:00:23 A Cordis 5Fr 3DRC Catheter (MP) was advanced over the wire and used for Multi-vessel Angiography. 16:00:29 VALADEZ angiography performed. 16:01:38 Catheter removed. 16:01:55 A Diagnostic Infinity 5Fr AR 2 MOD catheter was advanced over the wire and used for Multi-vessel Angiography. 16:02:54 RCA angiography performed. 16:03:42 SVG to Circ angiography performed. 16:03:59 Catheter removed. 16:05:13 Merit BasixCompak Inflation Kit opened to sterile field. 16:05:14 Terumo 6Fr Brinson Sheath opened to sterile field. 16:05:15 [employer]hen Hasee computertronic Launcher 6Fr AR 2.0 SH guide catheter opened to sterile field. 16:05:21 Proceeding to intervention. 16:05:28 Sheath upsized to a 6 Fr Short. 16:05:49 Heparin Bolus 4000 units I.V. was administered by Ezekiel Maurer RN; for anticoagulation; verified with dr macdonald 16:05:51 [place] Sci PT Graphix J 182cm 0.014 guide wire opened to sterile field. 16:06:13 pt graphix wire advanced. 16:07:37 Integrilin (Bolus 2mg/ml) 8.5 ml I.V. was administered by Ezekiel Maurer RN; for antiplatelet therapy; wasted 1.5 ml of vial 16:08:41 Inflation number: 2 A Euphora 2.5 x 20 Balloon was prepped and advanced across the Aorta Left -> Mid CX, then inflated to 17 ODESSA for 0:10 (min:sec). 16:09:11 Inflation number: 1 The Euphora 2.5 x 20 Balloon was reinflated across the Aorta Left -> Mid CX, to 17 ODESSA for 0:10 (min:sec). 16:10:32 Balloon removed over the wire. 16:11:36 Inflation Number: 3 A Erie RX 2.75 x 38 stent was prepped and advanced across the Aorta Left -> Mid CX. The stent was deployed at 21 ODESSA for 0:10 (min:sec). 16:13:28 Nitroglycerin IC/IA 300 mcg I.C. was administered by Viral Macdonald MD; for vasodilation; 16:14:09 Stent catheter was removed intact over wire. 16:15:20 Cardene 300 mcg I.C. was administered by Viral Macdonald MD; for vasodilation; 16:15:57 Guide catheter removed. 16:15:57 Wire removed. 16:16:27 Cordis 6Fr Exoseal opened to sterile field. 16:17:50 Procedure ended.(Physican Out) 16:18:05 Fentanyl 25 mcg I.V. was administered by Ezekiel Maurer RN; for sedation; 16:18:56 Fluoroscopy time 06.90 minutes. 16:19:02 Fluoroscopy dose: 1069 mGy 16:19:02 Flurop Dose total: 1069 16:19:15 Contrast amount:Isovue 300 116ml. 16:19:18 Sharps counted by scrub and verified by R.N. 16:19:21 Insertion/operative site no bleeding no hematoma. 16:19:25 Post-op/insertion site Right Femoral artery dressed using a 4 x 4 and Tegaderm. 16:20:01 Post right femoral artery:stable 16:20:03 Post Procedure Pulses reassessed and unchanged 16:20:07 Post procedure rhythm: unchanged. 16:20:11 Estimated blood loss: 5 ml 16:20:14 Post procedure instruction explained to patient.Patient verbalizes understanding. 16:20:16 Patient needs reinforcement of post procedure teaching. 16:20:47 Procedure type changed to Cath procedure, Diagnostic procedure, LHC, LHC w/Coronaries w/Grafts, PCI procedure, SVG-BMS/FERNY Initial, Miscellaneous Procedures, Moderate Sedation up to 30 minutes 16:20:49 Procedure and supply charges have been captured, reviewed, submitted and are correct. 16:20:54 Procedure Complication : No complications 16:20:57 Vital chart was stopped 16:20:58 See physician's report for complete and final results. 16:21:04 Report given to ICU. 16:21:07 Report given to ICU. 16:21:16 Patient transfered to ICU with Stretcher. 16:21:23 Full Disclosure recording stopped 16:21:23 Procedure ended. 16:21:34 ACC-PCI Only Patient was given prescriptions, or instructed by Viral Macdonald MD to start/continue the following medications upon discharge: Plavix 16:21:39 End room use (Document Last) 16:22:40 Plavix 600 mg P.O. was administered by Ezekiel Maurer RN; for antiplatelet therapy; Intervention Summary Intervention Notes Time ActionType Lesion and Equipment Action# Pressure Duration Attributes Used 16:08:41 Inflate Aorta Left Euphora 2 17 00:10 balloon -> Mid CX 2.5 x 20 Balloon 16:09:11 Reinflate Aorta Left Euphora 1 17 00:10 balloon -> Mid CX 2.5 x 20 Balloon 16:11:36 Place stent Aorta Left Erie RX 3 21 00:10 -> Mid CX 2.75 x 38 stent Device Usage Item Name Manufacture Quantity Catalog Number Hospital Part Current Mini mal Lot# / Charge Number Stock Stock Serial# Code [facility] [id number] [id number] 674889 834090 20 Syringe Medical Systems Inc Bag Microtek 1 2002S 296499 66173 851165 5 SUB ONE TECHNOLOGY Inc. Medline Cardinal 1 [id number] 312744 40818 345249 5 Spreadsave Terumo 5Fr Terumo 1 [id number] 580518 230484 660656 [address] St Kelby 1 969310 756993 626312 381741 30 260cm J .035 wire Acist Hand Acist 1 33041 552718 897100 376300 5 Control Medical Systems Inc Acist Acist 1 43810 469183 182495 414960 5 Manifold Medical Systems Inc Diagnostic Cardinal 1 [id number] 860615 88526 086062 30 Infinity Health 5Fr Multipack catheter Tegaderm 4 3M 1 1626W 146247 259248 700078 5 x 4 Cordis 5Fr Cardinal 1 220565 5 JL 4.0 Health Catheter (MP) Diagnostic Cardinal 1 [id number] 178669 046395 421064 5 [facility]inity [facility] 5Fr JL 5 catheter Cordis 5Fr Cardinal 1 742394 5 3DRC Health Catheter (MP) Diagnostic Cardinal 1 [id number] 399668 139145 065957 20 Infinity Health 5Fr AR 2 MOD catheter Merit Merit 1 [id number] 479542 820126 790172 15 Last 2 [facility] Inflation Kit Terumo 6Fr Terumo 1 [id number] 371342 602944 163818 40 Brinson Sheath Medtronic Medtronic 1 [id number] 949993 02896 930475 1 Launcher 6Fr AR 2.0 SH guide catheter [place] Sci Sp[place] 1 [id number] 003693 156911 758801 5 PT Maidou Internationalix Scientific J 182cm 0.014 guide wire Euphora 2.5 Medtronic 1 [id number] 835550 767003 124891 5 [id number] x 20 Balloon Mike RX Medtronic 1 [id number] 603044 7033761 137125 5 [id number] 2.75 x 38 stent Cordis 6Fr Cardinal 1 EX600 992597 636129 514269 10 Optiniselect medical [facility] [place] Signature Audit Brixey Stage Time Signature Unsigned Intra-Procedure 05/02/2017 Deepali Lind 4:26:24 PM RT(R) Signatures Monitor : Deepali Lind RT Signature : Date : Time : [facility] [address] [place] [address]
[~2017-04-23 08:02] MED LIST changes: +ELIQUIS2.5 MG PO; +LANTUS INSULIN10 ML SC; +PROTONIX40 MG PO
[2017-04-23 08:39] LABS: BASOPHILS 0.3 % (0-2); EOSINOPHILS 1.4 % (0-7); IMMATURE GRANULOCYTES 0.1 % (0-5); LYMPHOCYTES 14.5 % (15-50); MCH 28.3 pg (26.0-34.0); MCHC 31.7 g/dL (31.0-37.0); MCV 89.1 fL (80.0-100.0); MEAN PLATELET VOLUME 10.3 fL (7.4-10.4); MONOCYTES 8.5 % (2-11); NEUTROPHILS 75.2 % (40-80); RBC 2.58 10x6/uL (4.20-6.10); RDW 15.3 % (11.5-14.5)
[2017-04-23 08:50] LABS: HEMOGLOBIN 7.3 g/dL (13.5-17.5); PLATELET COUNT 227 10x3/uL (130-400)
[2017-04-23 09:24] LABS: ALBUMIN 2.7 g/dL (3.4-5.0); ANION GAP 20.3 mmol/L (8-16); BILIRUBIN - TOTAL 0.41 mg/dL (0.2-1.3); CALCIUM 8.2 mg/dL (8.5-10.1); CARBON DIOXIDE 19.1 mmol/L (21.0-32.0); CREATININE - SERUM 3.9 mg/dL (0.6-1.3); POTASSIUM - SERUM 4.4 mmol/L (3.5-5.1); PROTEIN - SERUM 6.9 g/dL (6.4-8.2)
[2017-04-23 09:41] LABS: APPEARANCE CLEAR (CLEAR); BILIRUBIN NEGATIVE (NEGATIVE); COLOR YELLOW (YELLOW); GLUCOSE NEGATIVE (NEGATIVE); KETONE NEGATIVE (NEGATIVE); NITRITE NEGATIVE (NEGATIVE); PROTEIN NEGATIVE (NEGATIVE); SPECIFIC GRAVITY 1.015 (1.005-1.020); UROBILINOGEN NORMAL (NORMAL)
--- NOTE | 2017-04-23 11:30 | NUR ---
TRANSFER FROM ER BY STRETCHER. OREINTED TO ROOM. CALL LIGHT IN REACH. WILL CONT. PLAN OF CARE.
[2017-04-23 11:46] VITALS: BP 154/74; BMI 29.3
[2017-04-23] MEDS ORDERED: TORSEMIDE20 MG PO (11:59)
[2017-04-23] MEDS ORDERED: NEURONTIN 300300 MG PO (12:00)
--- NOTE | 2017-04-23 14:00 | NUR ---
1 UNIT PRBC STARTED. VS WNL. LINE IS PATENT. WILL MONITOR.
[2017-04-23 21:28] VITALS: BP 150/70
--- NOTE | 2017-04-23 21:38 | NUR ---
BS 211, COVERED PER S/S. IV TO RIGHT AC OUT, TIP INTACT. NO BLEEDING NOTED.
--- NOTE | 2017-04-23 22:42 | NUR ---
IV RESITED TO RIGHT UPPER ARM, 22 GUELA, FRANKY ATTEMPT, PT TOLERATED WELL. BUPRENEX 0.1 MG GIVEN IV FOR C/O PAIN TP RIGHT KNEE. RATES PAIN AT A 7 ON PAIN SCALE.
--- NOTE | 2017-04-24 01:20 | NUR ---
RESTING WITH EYES CLOSED, RESPERATIONS EVEN, NO S/S DISTRESS NOTED.
[2017-04-24 02:07] VITALS: BP 127/75
--- NOTE | 2017-04-24 04:18 | NUR ---
TURN MACHINE OPERATOR AT BED SIDE TO OBTAIN VITALS.
[2017-04-24 05:25] VITALS: BP 136/54
--- NOTE | 2017-04-24 05:28 | NUR ---
PT RESTING COMFORTABLY, EYES CLOSED, RESPIRATIONS EVEN AND UNLABORED, CONTINUE TO MONITOR CLOSELY.
[2017-04-24 05:41] LABS: BASOPHILS 0.3 % (0-2); EOSINOPHILS 1.3 % (0-7); HEMOGLOBIN 7.9 g/dL (13.5-17.5); IMMATURE GRANULOCYTES 0.1 % (0-5); LYMPHOCYTES 16.8 % (15-50); MCH 27.7 pg (26.0-34.0); MCHC 31.6 g/dL (31.0-37.0); MCV 87.7 fL (80.0-100.0); MEAN PLATELET VOLUME 10.6 fL (7.4-10.4); MONOCYTES 10.1 % (2-11); NEUTROPHILS 71.4 % (40-80); PLATELET COUNT 228 10x3/uL (130-400); RBC 2.85 10x6/uL (4.20-6.10); RDW 16.2 % (11.5-14.5)
[2017-04-24 05:54] LABS: % SATURATION 9 % (15-55); IRON 25 ug/dl (35-150); TOTAL IRON BIND CAPACITY 274 ug/dl (260-445); UNSAT IRON BIND CAPACITY 249 ug/dl (150-375)
[2017-04-24 06:08] LABS: CALCIUM 8.3 mg/dL (8.5-10.1); CARBON DIOXIDE 19.4 mmol/L (21.0-32.0); CREATININE - SERUM 4.3 mg/dL (0.6-1.3); PHOSPHOROUS 5.2 mg/dL (2.5-4.9); POTASSIUM - SERUM 4.4 mmol/L (3.5-5.1)
[2017-04-24 06:18] VITALS: Ht 180.3 cm; Wt 101.5 kg
[2017-04-24 08:00] VITALS: BP 158/59
--- NOTE | 2017-04-24 10:03 | NUR ---
TELEMETRY SR. RESP UL ON 02 2L NC. UP TO CHAIR WITH CALL LIGHT IN REACH. WILL CONT. PLAN OF CARE.
[2017-04-24 12:00] VITALS: BP 156/74
--- NOTE | 2017-04-24 14:20 | NUR ---
1 UNIT PRBC STARTED. VS WNL. LINE IS PATENT.
--- NOTE | 2017-04-24 17:17 | NUR ---
BLOOD COMPLETED WITHOUT ADVERSE REACTIONS NOTED. WILL MONITOR.
--- NOTE | 2017-04-24 19:03 | NUR ---
UP WITH ASSIST TO BR. INFORMED PT TO PULL CHAIN ON WALL WHEN FINISHED. IN ROOM.
--- NOTE | 2017-04-24 20:50 | NUR ---
BS 231, COVERED PER S/S. PT DENIES PAIN OR NEEDS, BED LOW, CL IN REACH.
[2017-04-24 22:06] VITALS: BP 170/65
[2017-04-25 01:54] VITALS: BP 123/75
--- NOTE | 2017-04-25 04:20 | NUR ---
RESTING WITH EYES CLOSED, RESPERATIONS EVEN, NO S/S DISTRESS NOTED.
[2017-04-25 05:03] LABS: BASOPHILS 0.3 % (0-2); EOSINOPHILS 2.8 % (0-7); HEMATOCRIT 27.1 % (42.0-54.0); HEMOGLOBIN 8.7 g/dL (13.5-17.5); IMMATURE GRANULOCYTES 0.3 % (0-5); LYMPHOCYTES 12.9 % (15-50); MCH 27.7 pg (26.0-34.0); MCHC 32.1 g/dL (31.0-37.0); MCV 86.3 fL (80.0-100.0); MEAN PLATELET VOLUME 10.5 fL (7.4-10.4); MONOCYTES 8.9 % (2-11); NEUTROPHILS 74.8 % (40-80); PLATELET COUNT 228 10x3/uL (130-400); RBC 3.14 10x6/uL (4.20-6.10); RDW 16.8 % (11.5-14.5); WBC 7.2 10x3/uL (4.8-10.8)
[2017-04-25 05:15] LABS: ANION GAP 15.5 mmol/L (8-16); CALCIUM 8.5 mg/dL (8.5-10.1); CARBON DIOXIDE 21.6 mmol/L (21.0-32.0); CREATININE - SERUM 4.3 mg/dL (0.6-1.3); PHOSPHOROUS 4.6 mg/dL (2.5-4.9); POTASSIUM - SERUM 4.1 mmol/L (3.5-5.1)
--- NOTE | 2017-04-25 05:17 | NUR ---
CALL LIGHT IN REACH, WILL CONTINUE WITH PLAN OF CARE.
[2017-04-25 06:17] VITALS: BP 143/58
--- NOTE | 2017-04-25 07:30 | NUR ---
RECEIVED PT SITTING ON SIDE OF BED DENIES ANY NEEDS AT THIS TIME NAD NOTED
[2017-04-25 08:00] VITALS: BP 162/93
--- NOTE | 2017-04-25 11:30 | NUR ---
FSBS 201 HUMALOG 4 UNITS GIVEN SQ LT ARM
[2017-04-25 11:47] VITALS: BP 164/72
[2017-04-25] MEDS ORDERED: CARDURA8 MG PO (12:28)
[2017-04-25 16:00] VITALS: BP 167/66
--- NOTE | 2017-04-25 18:08 | NUR ---
FSBS 136
[2017-04-25 20:00] VITALS: BP 174/82
--- NOTE | 2017-04-25 23:19 | NUR ---
CALL LIGHT IN REACH, WILL CONTINUE WITH PLAN OF CARE.
[2017-04-26] VITALS: BP 184/74
[2017-04-26 04:00] VITALS: BP 179/83
[2017-04-26 05:53] LABS: BASOPHILS 0.2 % (0-2); EOSINOPHILS 0.8 % (0-7); HEMATOCRIT 30.1 % (42.0-54.0); HEMOGLOBIN 9.4 g/dL (13.5-17.5); IMMATURE GRANULOCYTES 0.3 % (0-5); LYMPHOCYTES 8.5 % (15-50); MCH 27.2 pg (26.0-34.0); MCHC 31.2 g/dL (31.0-37.0); MCV 87.2 fL (80.0-100.0); NEUTROPHILS 83.2 % (40-80); PLATELET COUNT 262 10x3/uL (130-400); RBC 3.45 10x6/uL (4.20-6.10); RDW 16.4 % (11.5-14.5)
[2017-04-26 05:59] LABS: WBC 9.5 10x3/uL (4.8-10.8)
[2017-04-26 06:32] LABS: ANION GAP 21.2 mmol/L (8-16); CALCIUM 8.6 mg/dL (8.5-10.1); CARBON DIOXIDE 18.1 mmol/L (21.0-32.0); PHOSPHOROUS 4.6 mg/dL (2.5-4.9); POTASSIUM - SERUM 4.3 mmol/L (3.5-5.1); URIC ACID 14.1 mg/dL (2.6-7.2)
[2017-04-26 08:56] VITALS: BP 189/76
--- NOTE | 2017-04-26 11:11 | NUR ---
Nutrition Follow Up: Pt is eating 70% meal avg on an AHA/ADA diet. +BM 04/24/17. Wt stable. Labs reviewed - Glucose elevated. Meds noted. Rec continue current diet. RD following.
[2017-04-26 11:39] VITALS: BP 112/72
[2017-04-26 15:42] VITALS: BP 176/77
--- NOTE | 2017-04-26 16:56 | CN ---
PATIENT NAME:MARIAMA ZUÑIGA MEDICAL RECORD: [id number] : 40 LOCATION:D. D.2118 ADMIT DATE: 04/23/17 ACCOUNT: [id number] CONSULTING PHYSICIAN: DAREN DOLAN MD REFERRING PHYSICIAN: VON BEST MD DATE OF CONSULTATION: 04/23/2017 CARDIOLOGY CONSULTATION DIAGNOSES: 1. Anemia. 2. Renal insufficiency, acute on chronic. 3. Angina. 4. Coronary artery disease. 5. Hypertension. 6. Paroxysmal atrial fibrillation. 7. Insulin-dependent diabetes. HISTORY OF PRESENT ILLNESS: This is a gentleman with a past history of coronary artery disease, status post coronary bypass graft surgery, also a history of atrial fibrillation for which he is on Eliquis. He now presents with chest pain and fatigue, found to have hemoglobin of 7.3 and creatinine of 3.9. PHYSICAL EXAMINATION: GENERAL APPEARANCE: Well-nourished, well-developed, appears stated age. Level of distress, comfortable. PSYCHIATRIC: Mental status, alert, normal affect. Orientation, oriented to time, place and person. EYES: Lids and conjunctiva, noninjected. No discharge, no pallor. ENT: Lips, teeth, gums, normal dentition. Oropharynx, no cyanosis, no pallor. NECK: Carotid arteries, bilateral normal upstroke, no bruits, no thrills. JUGULAR VEINS: No jugular venous pressure or distention. CERVICAL LYMPH NODES: Nontender, nonenlarged. THYROID: Not enlarged. Nontender. No nodules. LUNGS: Respiratory effort, unlabored. CHEST: Normal curvature. No thoracic deformity. No chest wall tenderness. Percussion, resonant. Auscultation, clear. No wheezes, no rales, no rhonchi. CARDIOVASCULAR: Precordial exam, nondisplaced. No heaves or pericardial thrills. Rate and rhythm, regular. Heart sounds, normal S1, normal S2. No S3, no gallop, no rub. Systolic murmur, not heard. Diastolic murmur, not heard. EXTREMITIES: No cyanosis, no edema. Peripheral pulses, full and equal in all extremities, except as noted. No bruits appreciated. ABDOMEN: Soft, nondistended. Normal aorta. No bruit. Nontender. No masses. Liver, nontender, no hepatomegaly. Spleen, nontender, no splenomegaly. MUSCULOSKELETAL: No joint tenderness. No joint swelling. No erythema. NEUROLOGICAL: Normal gait, normal strength, normal tone. SKIN: Warm and dry. REVIEW OF SYSTEMS: The patient reports easy bruising but reports no swollen glands. The patient reports no fever, no night sweats, no significant weight gain, no significant weight loss. No significant exercise tolerance. The patient reports no dry eyes, no irritation, no vision change. Patient reports no difficulty hearing and no ear pain. Patient reports no frequent nose bleeds or nose and sinus problems. Patient reports on arm pain on exertion. No shortness of breath while lying down. No history of heart murmur. Patient CONSULT REPORT [id number] MARIAMA ZUÑIGA reports no cough, no wheezing or coughing up blood. Patient reports no abdominal pain, no vomiting. Normal appetite. No diarrhea and not vomiting blood. No nausea and no constipation. Patient reports no incontinence. No difficulty urinating. No hematuria. No increased frequency. Patient reports no muscle aches. No weakness, no arthralgias, no back pain. No swelling of the extremities. Patient reports no abnormal mole, no jaundice, no rashes. Reports no loss of consciousness. No weakness and no numbness. No seizures, dizziness, or headaches. The patient reports no depression, no sleep disturbance, feeling safe in a relationship and no alcohol abuse. Patient reports on fatigue. Reports no runny nose or sinus pressure. No itching, no hives, and no frequent sneezing. OVERALL IMPRESSION: His angina is secondary to the anemia. He has no acute changes on his EKG. Troponin is normal. At this time, we will stop the Eliquis as the risk of bleeding and blood-loss anemia is much greater risk than that of the atrial fibrillation. We will continue his other medications as he maintains sinus rhythm. At this time, cardiac catheterization will not be an option secondary to his renal insufficiency. Supportive care with transfusion. This should resolve the anemia, which will resolve the angina. It should improve the renal function as well. Most likely no other cardiac workup or treatment will be necessary. TRANSINT:[id number] Voice Confirmation ID: [id number] DOCUMENT ID: [id number] DAREN DOLAN MD at 1657 CC: [id number] DICTATION DATE: 04/23/17 1214 SPECIAL SERVICE OFFICER: 04/23/17 1301 ADM IN [facility] [address] [place] [id number]
--- NOTE | 2017-04-26 19:35 | NUR ---
PT ASLEEP, RESPIRATIONS EVEN AND UNLABORED, PT MOUTH BREATHER. NO S/S OF DISTRESS. BED LOW AND CALL LIGHT IN REACH. WILL CPOC
[2017-04-26 21:06] VITALS: BP 160/72
--- NOTE | 2017-04-26 21:54 | NUR ---
PT COUGHING FREQUENTLY, NON PRODUCTIVE. PT C/O PAIN 02/07. PRN PAIN MED GIVEN. PT DENIES ANY OTHER NEEDS. NO S/S OF DISTRESS. WILL COPC
[2017-04-27 00:34] VITALS: BP 115/61
--- NOTE | 2017-04-27 01:00 | NUR ---
PT ASLEEP. RESPIRATIONS EVEN AND UNLABORED. MOUTH OPEN AND DRY FROM MOUTH BREATHING. PT BED LOW AND CALL LIGHT IN REACH. WILL CPOC
[2017-04-27 04:00] VITALS: BP 154/62
[2017-04-27 05:09] LABS: BASOPHILS 0.2 % (0-2); EOSINOPHILS 1.8 % (0-7); HEMATOCRIT 27.8 % (42.0-54.0); HEMOGLOBIN 8.8 g/dL (13.5-17.5); IMMATURE GRANULOCYTES 0.2 % (0-5); LYMPHOCYTES 8.9 % (15-50); MCH 27.8 pg (26.0-34.0); MCHC 31.7 g/dL (31.0-37.0); MCV 87.7 fL (80.0-100.0); MEAN PLATELET VOLUME 10.8 fL (7.4-10.4); MONOCYTES 8.2 % (2-11); NEUTROPHILS 80.7 % (40-80); PLATELET COUNT 241 10x3/uL (130-400); RBC 3.17 10x6/uL (4.20-6.10); RDW 16.3 % (11.5-14.5); WBC 8.3 10x3/uL (4.8-10.8)
[2017-04-27 05:27] LABS: ANION GAP 16.9 mmol/L (8-16); CALCIUM 8.6 mg/dL (8.5-10.1); CARBON DIOXIDE 19.4 mmol/L (21.0-32.0); CREATININE - SERUM 3.7 mg/dL (0.6-1.3); PHOSPHOROUS 4.2 mg/dL (2.5-4.9); POTASSIUM - SERUM 4.3 mmol/L (3.5-5.1)
--- NOTE | 2017-04-27 06:45 | NUR ---
PT FSBS 174 2 UNITS OF INSULIN GIVEN. PT OFFERED GRAMCRACKER, PNT BUTTER AND MILK A SNACK TO COVER INSULIN UNTIL TRAY ARRIVES AROUND 0800. PT DENIES ANY NEEDS. NO S/S OF DISTRESS. WILL CPOC
[2017-04-27 07:16] VITALS: BP 164/83
[2017-04-27 11:04] VITALS: BP 167/79
--- NOTE | 2017-04-27 12:52 | NUR ---
UP TO CHAIR WITH CALL LIGHT IN REACH. TELEMETRY CAF. IV PATENT. CALL LIGHT IN REACH. WILL CONT. PLAN OF CARE.
[2017-04-27 15:11] VITALS: BP 169/68
[2017-04-27 20:00] VITALS: BP 151/55
[2017-04-28] VITALS: BP 170/83
[2017-04-28 04:00] VITALS: BP 179/76
[2017-04-28 05:04] LABS: BASOPHILS 0.1 % (0-2); EOSINOPHILS 3.9 % (0-7); HEMATOCRIT 27.4 % (42.0-54.0); HEMOGLOBIN 8.5 g/dL (13.5-17.5); IMMATURE GRANULOCYTES 0.3 % (0-5); LYMPHOCYTES 11.5 % (15-50); MCH 27.4 pg (26.0-34.0); MCV 88.4 fL (80.0-100.0); MEAN PLATELET VOLUME 10.7 fL (7.4-10.4); MONOCYTES 8.2 % (2-11); PLATELET COUNT 244 10x3/uL (130-400); RDW 16.5 % (11.5-14.5); WBC 7.5 10x3/uL (4.8-10.8)
[2017-04-28 05:17] LABS: CALCIUM 8.6 mg/dL (8.5-10.1); CARBON DIOXIDE 20.1 mmol/L (21.0-32.0); CREATININE - SERUM 3.3 mg/dL (0.6-1.3); PHOSPHOROUS 3.9 mg/dL (2.5-4.9); POTASSIUM - SERUM 4.1 mmol/L (3.5-5.1)
[2017-04-28 08:00] VITALS: BP 174/80
[2017-04-28 12:00] VITALS: BP 161/84
--- NOTE | 2017-04-28 13:47 | NUR ---
IV RESTARTED TO LEFT FA WITH 22 GAUGE CATH X 1 STICK AND FLUSHED WITH NS. LINE IS PATENT.
[2017-04-28 16:00] VITALS: BP 161/84
[2017-04-28 20:00] VITALS: BP 165/72
[2017-04-29] VITALS: BP 175/79
[2017-04-29 04:00] VITALS: BP 179/64
[2017-04-29 08:34] VITALS: BP 163/75
[2017-04-29 08:45] LABS: ALBUMIN 2.2 g/dL (3.4-5.0); ANION GAP 14.3 mmol/L (8-16); BILIRUBIN - TOTAL 0.6 mg/dL (0.2-1.3); CALCIUM 8.6 mg/dL (8.5-10.1); CREATININE - SERUM 2.8 mg/dL (0.6-1.3); POTASSIUM - SERUM 4.3 mmol/L (3.5-5.1); PROTEIN - SERUM 6.6 g/dL (6.4-8.2)
--- NOTE | 2017-04-29 11:17 | NUR ---
RESTING COMFORTABLY AT THIS TIME. ATE PEACHES ONLY FROM BREAKFAST. HAS A DRY COUGH. WAS SLEEPING WITH MOUTH OPEN ON FIRST ASSESSMENT. B/P 183/76.TELEMETRY SHOWS 75 .
[2017-04-29 12:23] VITALS: BP 183/76
--- NOTE | 2017-04-29 13:36 | NUR ---
SITTING UP IN BED, EATTING LUNCH. REPORTS PAIN LEVEL 8 , TREATED WITH MEDICATION ORDERED. PULSES IN LOWER EXTREAMITIES ARE WEAK. PAIN IS IN RIGHT HIP AND FEET. TELEMETRY SHOWS SR AT 77.
--- NOTE | 2017-04-29 15:27 | NUR ---
PT ASLEEP AT PRESENT. MONITOR SHOWS SR@75. WILL CONTINUE TO MONITOR.
[2017-04-29 16:43] VITALS: BP 195/78
--- NOTE | 2017-04-29 16:58 | NUR ---
PATIENT HAS BEEN SLEEPING AND MOUTH BREATHING MOST OF THE DAY. REPORTS PAIN IN HIS RIGHT HIP AND FEET. PAIN IS MANAGED. TELEMETRY SHOWS SR 61 WITH BUNDLE BRANCH BLOCK.
[2017-04-29 19:24] LABS: APPEARANCE CLEAR (CLEAR); BILIRUBIN NEGATIVE (NEGATIVE); COLOR YELLOW (YELLOW); GLUCOSE NEGATIVE (NEGATIVE); KETONE NEGATIVE (NEGATIVE); NITRITE NEGATIVE (NEGATIVE); PROTEIN TRACE mg/dL (NEGATIVE); SPECIFIC GRAVITY 1.015 (1.005-1.020); UROBILINOGEN NORMAL (NORMAL)
[2017-04-29 20:30] VITALS: BP 165/79
[2017-04-30 01:44] VITALS: BP 184/78
--- NOTE | 2017-04-30 01:59 | NUR ---
PT RESTING SOUNDLY WITHOUT C/O OR DISTRESS NOTED. CALL LIGHT WITHIN REACH. WILL MONITOR.
[2017-04-30 04:40] VITALS: BP 177/80
[2017-04-30 06:00] LABS: BASOPHILS 0 % (0-2); EOSINOPHILS 0 % (0-7); HEMATOCRIT 29.3 % (42.0-54.0); IMMATURE GRANULOCYTES 0.5 % (0-5); LYMPHOCYTES 5.7 % (15-50); MCH 27.4 pg (26.0-34.0); MCHC 30.7 g/dL (31.0-37.0); MCV 89.3 fL (80.0-100.0); MEAN PLATELET VOLUME 10.7 fL (7.4-10.4); MONOCYTES 0.9 % (2-11); NEUTROPHILS 92.9 % (40-80); PLATELET COUNT 264 10x3/uL (130-400); RBC 3.28 10x6/uL (4.20-6.10); RDW 16.6 % (11.5-14.5); WBC 6.5 10x3/uL (4.8-10.8)
[2017-04-30 06:21] LABS: ANION GAP 20.4 mmol/L (8-16); CALCIUM 8.7 mg/dL (8.5-10.1); CARBON DIOXIDE 19.2 mmol/L (21.0-32.0); CREATININE - SERUM 2.6 mg/dL (0.6-1.3); POTASSIUM - SERUM 4.6 mmol/L (3.5-5.1)
[2017-04-30 08:35] VITALS: BP 189/62
--- NOTE | 2017-04-30 11:09 | NUR ---
ROUNDING DONE WITH PATIENT SITTING IN CHAIR. HE WAS ASLEEP, AROUSES EASILY. DENIES NEEDS AT PRESENT TIME. CALL LIGHT IS IN USE AT HIS SIDE. WILL CONTINUE TO MONITOR.
[2017-04-30 12:02] VITALS: BP 177/63
--- NOTE | 2017-04-30 13:00 | NUR ---
PATIENT IS UP IN CHAIR. REPORTS FEELING DIZZY AND WEAK. HE IS HAVING SPASIMS IN HIS LEGS. HIS RIGHT LEG IS JERKING. REPORTS PAIN IN HIS FEET. GAIT IS UNSTEADY. PATIENT IS HAVING RUNNY STOOL. HE IS WEAK. TELEMETRY SHOWS SR 59.
--- NOTE | 2017-04-30 16:42 | EC ---
PATIENT:MARIAMA ZUÑIGA DATE OF SERVICE: 04/23/17 SEX: M MEDICAL RECORD: [id number] DATE OF : 40 LOCATION:D. D.211 AGE OF PATIENT: 76 ADMISSION DATE: 04/23/17 REFERRING PHYSICIAN: INTERPRETING PHYSICIAN: DAREN MACDONALD MD ECHOCARDIOGRAM REPORT ECHO CHARGES 4 ECHO COMPLETE CLINICAL DIAGNOSIS: SOB HX CAD/CABG/HTN ECHOCARDIOGRAPHIC MEASUREMENTS (adult normal given) AC root (d.<3.7cm) 3.8 cm LV Septum d (<1.2 cm> 1.3 cm Valve Excursion 1.7 cm LV Septum (systole) 1.4 cm Left Atria (s.<4.0cm> 3.9 cm LVPW d(<1.2cm) 1.3 cm RV (d.<2.3cm) 5.1 cm LVPW (sytole) 1.6 cm LV diastole(<5.6CM) 5.1 cm MV E-F(>70mm/sec) cm LV systole 3.7 cm LVOT Diameter 1.4 cm MV exc.(>10mm) 1.9 cm Est.ejection fraction (50-75%) % Pericardial Effusion N DOPPLER: LVIT cm/sec A 85.0 cm/sec E 115 cm/sec LA cm/sec RVSP 59 mmHg LVOT 92 cm/sec AOP1/2T m/s Asc. Ao 159 cm/sec RVOT 85 cm/sec RA cm/sec PA 146 cm/sec AV Gradient Peak 10.17mmHg AV Mean 5.27 mmHg AV Area 1.5 cm MV Gradient Peak 8.22 mmHg MV Mean 2.76 mmHg MV Area cm COMMENTS: Motorboat Mechanic Inboard: Melvin DALTON Selling Manager: 1 Dr. Macdonald TAPE# PACS DATE OF SERVICE: 04/27/2017 Echocardiogram FINDINGS: 1. Left ventricular chamber size is within normal limits. Left ventricular systolic function is preserved. Overall ejection fraction in the 45% range. 2. Left atrium is within normal limits at 3.9 cm. Right atrium and right ventricular chamber size is mildly dilated. 3. Valvular structures have normal structure and motion. ECHOCARDIOGRAM REPORT [id number] MARIAMA ZUÑIGA 4. Doppler interrogation reveals [id number]-[id number] mitral regurgitation, moderate tricuspid regurgitation, no other valvular insufficiency or stenosis. Pulmonary systolic pressure is elevated estimated at 59 mmHg. 5. No evidence of pericardial effusion or left ventricular thrombus. TRANSINT:[id number] Voice Confirmation ID: [id number] DOCUMENT ID: [id number] DAREN MACDONALD MD at 1642 CC: [id number] DICTATION DATE: 04/28/17 1111 VEGETABLE LOADER MACHINE OPERATOR: 04/28/17 1429 ADM IN [place] [id number] [place] [address]
--- NOTE | 2017-04-30 16:50 | NUR ---
Rehab Note- Acute Rehab Prescreen order received. The patient has [employer] Insurance and will require a PreAuth prior to an Acute Inpatietn Rehab stay. Will need the OT eval completed for PreAuth. Will begin PreAuth process. Thank you for this referral! Will follow at this time. Evie Gramajo RN Clinical Liaison, [facility] Rehab
--- NOTE | 2017-04-30 18:09 | NUR ---
BACK TO BED WITH HELP. DENIES ANY NEEDS. CALL LIGHT IN REACH WITH SR UP
--- NOTE | 2017-04-30 20:30 | NUR ---
PT AWAKE, ALERT, ORIENTED, LYING IN BED, AT BEDSIDE, NO NEEDS AT THIS TIME. CONTINUE TO MONITOR CLOSELY.
[2017-04-30 21:28] VITALS: BP 181/71
[2017-05-01 01:06] VITALS: BP 134/61
[2017-05-01 05:07] VITALS: BP 173/67
[2017-05-01 05:40] LABS: BASOPHILS 0.1 % (0-2); EOSINOPHILS 0.7 % (0-7); HEMATOCRIT 27.7 % (42.0-54.0); HEMOGLOBIN 8.6 g/dL (13.5-17.5); IMMATURE GRANULOCYTES 0.4 % (0-5); LYMPHOCYTES 14.4 % (15-50); MCH 27.9 pg (26.0-34.0); MCV 89.9 fL (80.0-100.0); MEAN PLATELET VOLUME 10.6 fL (7.4-10.4); MONOCYTES 6.6 % (2-11); NEUTROPHILS 77.8 % (40-80); PLATELET COUNT 268 10x3/uL (130-400); RBC 3.08 10x6/uL (4.20-6.10); RDW 16.9 % (11.5-14.5); WBC 7.3 10x3/uL (4.8-10.8)
[2017-05-01 06:03] LABS: ANION GAP 15.3 mmol/L (8-16); CALCIUM 8.6 mg/dL (8.5-10.1); CARBON DIOXIDE 23.7 mmol/L (21.0-32.0); CREATININE - SERUM 2.7 mg/dL (0.6-1.3)
[2017-05-01 08:35] VITALS: BP 166/62
--- NOTE | 2017-05-01 09:39 | NUR ---
AMBULATES HALLWAY WITH PT ASSIST.
[2017-05-01 12:40] VITALS: BP 170/60
--- NOTE | 2017-05-01 16:34 | NUR ---
Patient Name: MARIAMA ZUÑIGA Encounter No: [id number] : 1940 Primary Insurance: [employer] CHOICE PPO MCR ADVANT Anticipated DC Date: 05-02-2017 Planned Disposition: Inpatient Rehab External [facility] DISCHARGE PLANNING NOTE: * Is the patient Alert and Oriented? Yes 0 * How many steps to enter\exit or inside your home? 3 W/RAILS 0 * PCP DR. CHARLES 0 * Pharmacy [facility] [address] 0 * Preadmission Environment Home with Family 0 * ADLs Independent 0 * Equipment Bedside Commode Glucometer Shower Chair Walker Wheelchair 0 * Other Equipment NO MEDICAL EQUIPMENT PROVIDER PREFERENCE 0 * List name and contact numbers for known caregivers / representatives who currently or will assist patient after discharge: JOSE ANGEL ZUÑIGA, SPOUSE, 0 * Community resources currently utilized None 0 * Please name any agencies selected above. NONE 0 * Additional services required to return to the preadmission environment? Yes * Can the patient safely return to the preadmission environment? Yes 0 * Has this patient been hospitalized within the prior 30 days at any hospital? No 0 CM RECEIVED INPATIENT REHAB PRESCREENING ORDER. CM MET WITH PT IN ROOM TO DISCUSS DISCHARGE PLANNING AND NEEDS. PT REPORTS LIVING AT HOME INDEPENDENTLY WITH SPOUSE. PT REPORTS HAVING ALL NEEDED MEDICAL EQUIPMENT AND NO OUTSIDE SERVICES ASSISTING IN THE HOME. CM DISCUSSED AVAILABILITY OF HOME HEALTH, REHAB SERVICES AND MEDICAL EQUIPMENT. PT REPORTS HE HAD [facility] BUT THE INSURANCE STOPPED PAYING SO THEY STOPPED. PT REPORTS HE NEEDS REHAB BEFORE GOING HOME BECAUSE HE CAN'T EVEN WALK. CM DISCUSSED INPATIENT AND [facility] OPTIONS. PT [facility] HE HAS BEEN THERE BEFORE AND IT IS CLOSE TO HIS 'S WORK. IF DENIED BY INSURANCE FOR INPATIENT, PT WOULD LIKE REFERRED TO [facility]. PT REPORTS HIS SPOUSE WILL TRANSPORT HIM HOME AT DISCHARGE. IMPORTANT MESSAGE FROM MEDICARE PROVIDED AND EXPLAINED. CHOICE SIGNED FOR [facility]. CM FAXED REFERRAL TO [facility], . CM WAITING ADMISSION DETERMINATION AND INSURANCE AUTHORIZATION / DENIAL. Lucas Hyman, CASE MANAGEMENT
[2017-05-01 16:44] VITALS: BP 164/69
--- NOTE | 2017-05-01 18:05 | NUR ---
OT NOTE: PT COMPLETED BED MOB WITH SBA. PT COMPLETED EOB SITTING BALANCE WIT SBA. THANK YOU, JOAN TILLEY/Laurita
--- NOTE | 2017-05-01 19:48 | NUR ---
RESUMED CARE OF PT, UP ON SIDE OF BED RESPIRATIONS EVEN AND UNLABORED ON ROOMA IR. LEFT FOREARM SALINE LOCKED. 67 SR WITH PACS AND BBB ON TELEMETRY. NO NEEDS AT THIS TIME, WILL CONTINUE TO MONITOR. SEE NURSE ASSESSMENT. CALL LIGHT IN REACH.
[2017-05-01 21:42] VITALS: BP 183/69
[2017-05-02] VITALS (14 sets, daily range): BP systolic 149–189; BP diastolic 69–700
--- NOTE | 2017-05-02 02:22 | NUR ---
CALL LIGHT IN REACH. WILL CONTINUE WITH PLAN OF CARE. 69 SR WITH BBB ON TELEMETRY
[2017-05-02 05:52] LABS: BASOPHILS 0.2 % (0-2); HEMOGLOBIN 9.4 g/dL (13.5-17.5); IMMATURE GRANULOCYTES 0.6 % (0-5); MCH 27.6 pg (26.0-34.0); MCHC 30.3 g/dL (31.0-37.0); MCV 90.9 fL (80.0-100.0); MEAN PLATELET VOLUME 10.5 fL (7.4-10.4); MONOCYTES 6.8 % (2-11); NEUTROPHILS 83.4 % (40-80); RBC 3.41 10x6/uL (4.20-6.10); RDW 17.3 % (11.5-14.5); WBC 8.9 10x3/uL (4.8-10.8)
[2017-05-02 06:11] LABS: ANION GAP 16.7 mmol/L (8-16); CARBON DIOXIDE 22.6 mmol/L (21.0-32.0); CREATININE - SERUM 2.8 mg/dL (0.6-1.3); POTASSIUM - SERUM 4.3 mmol/L (3.5-5.1)
[2017-05-02 06:14] LABS: PLATELET COUNT 324 10x3/uL (130-400)
--- NOTE | 2017-05-02 06:56 | NUR ---
NO CHANGES FROM PREVIOUS ASSESSMENT, CALL LIGHT IN REACH.
--- NOTE | 2017-05-02 09:38 | NUR ---
AMBULATES WITH PT ASSIST. UP TO CHAIR WITH CALL LIGHT IN REACH. TELEMETRY SR. WILL CONT. PLAN OF CARE.
--- NOTE | 2017-05-02 11:46 | NUR ---
EPISODES OF V-TACH CALLED TO DR. DOLAN. NEW ORDERS GIVEN. RAPID RESPONCE CALLED WHEN NOTICED PT STOPPED BREATHING. ABLE TO AROUSE WITH PAINFUL STIMULI. CORDARONE BOLLUS STARTED. IV INFILTRATED./ B/P 125/78. 02 SAT 97%. EKG DONE AND TRANSFERED TO ICU.
--- NOTE | 2017-05-02 11:56 | NUR ---
OT NOTE: PT REFUSED THERAPY TODAY. STATED THAT HE DID NOT FEEL WELL AND COULDNT CATCH HIS BREATH. PT IN BED. WILL ATTEPT IN PM
--- NOTE | 2017-05-02 12:08 | NUR ---
REC'D CARE OF PT. RECEIVING CORDORONE BOLUS. CONFUSED. CM=JUNCTIONAL RATE OF 72.
--- NOTE | 2017-05-02 12:12 | NUR ---
CORDORONE BOLUS COMPLETED. CORDORONE INFUSING AT 1 MG/MIN NOW.
[2017-05-02 12:31] LABS: CKMB 1.2 U/L (0.0-3.6); CREATINE KINASE 77 UL (21-232); MAGNESIUM - SERUM 2.9 mg/dL (1.8-2.4); THYROID STIMULATING HORMONE 1.02 uIU/mL (0.36-3.74); TROPONIN-I < 0.017 ng/mL (0.000-0.060)
--- NOTE | 2017-05-02 12:36 | NUR ---
UPDATED DR. SUMNER ABOUT RUNS OF V-TACH.
--- NOTE | 2017-05-02 12:40 | NUR ---
DISCUSSED V-TACH WITH DR. SUMNER. ORDERS REC'D TO GIVE CORDORONE BOLUS.
--- NOTE | 2017-05-02 12:58 | NUR ---
JUNCTIONAL YOLY CARDIC RATE OF 59.
--- NOTE | 2017-05-02 13:07 | NUR ---
Nutrition Follow Up: Chart reviewed - noted pt was moved to ICU today. Pt is eating 39% meal avg on an AHA diet. +BM 04/30/17. Labs and meds reviewed. Rec continue current HECTOR. RD following.
--- NOTE | 2017-05-02 15:51 | NUR ---
Rehab Note- Received a denial letter from [facility] via fax for an inpatient acute rehab stay. The paient has had a change in condition, now in ICU. Will follow at this time. And ask for a new Inpaient Rehab Eval when medically stable. Thank you for this referal! Evie Gramajo RN Clinical Liaison, [facility] Rehab
--- NOTE | 2017-05-02 16:37 | NUR ---
BACK FROM GUT PULLER.
--- NOTE | 2017-05-02 16:40 | NUR ---
RIGHT GROIN ELECTRONIC TECHNOLOGIST SITE ANGIOSEALED NO S/S OF BLEEDING.
--- NOTE | 2017-05-02 16:40 | NUR ---
HOOKED UP TO CM. JUNCTIONAL RYTHYM. NO OTHER ECTOPY SEEN.
--- NOTE | 2017-05-02 16:45 | NUR ---
DENIES NEEDS. DENIES PAIN.
--- NOTE | 2017-05-02 18:47 | NUR ---
REMAINS IN JUNCTIONAL RYTHYM. NO OTHER ECTOPY SEEN.
--- NOTE | 2017-05-02 19:00 | NUR ---
REPORT RECEIVED AND ASSESSMENT COMPLETED. SEE FLOWSHEET FOR FULL DETAILS. PT HAS A HR IN THE 60'S, AND EXPERIENCEING BREIF PERIODS OF BRADYCARDIA. AMIODARONE DOSE CUT IN HALF PER ORDERS. WILL MONITOR CLOSELY.
--- NOTE | 2017-05-02 19:30 | NUR ---
NO S/S OF BLEEDING AT RIGHT GROIN LETTER OF CREDIT DOCUMENT EXAMINER SITE.
--- NOTE | 2017-05-02 21:00 | NUR ---
2100 MEDS GIVEN. PT FAMILY IN ROOM AT THIS TIME. UPDATED ON PT CONDITION. PT NO LONGER HAVING BRADYCARDIC PROBLEMS. AMIODARONE DRIP STILL AT 0.5MG AT THIS TIME.
--- NOTE | 2017-05-02 23:00 | NUR ---
REASSESSMENT COMPLETED. SEE FLOWSHEET FOR FULL DETAILS. NO OTHER CHANGES IN STATUS AT THIS TIME. WILL CONTINUE TO MONITOR
[2017-05-03] VITALS (15 sets, daily range): BP systolic 153–176; BP diastolic 73–89
--- NOTE | 2017-05-03 01:00 | NUR ---
NO CHANGES IN PATIENT STATUS AT THIS TIME. WILL MONITOR. PT HAS HAD SHORT RUN OF V TACH. STILL ON AMIODARONE DRIP. WILL MONITOR CLOSELY. HR OTHER BETTENCOURT IN CONTROLLED A FIB.
--- NOTE | 2017-05-03 03:00 | NUR ---
PT REMAINS IN AFIB AT THIS TIME WILL CONTINUE TO MONITOR
--- NOTE | 2017-05-03 05:00 | NUR ---
NO CHANGES IN STATUS AT THIS TIME. WILL CONTINUE TO MONITOR
[2017-05-03 05:20] LABS: BASOPHILS 0.2 % (0-2); EOSINOPHILS 1.7 % (0-7); HEMATOCRIT 27.8 % (42.0-54.0); HEMOGLOBIN 8.5 g/dL (13.5-17.5); IMMATURE GRANULOCYTES 0.3 % (0-5); LYMPHOCYTES 7.9 % (15-50); MCH 27.7 pg (26.0-34.0); MCHC 30.6 g/dL (31.0-37.0); MCV 90.6 fL (80.0-100.0); MEAN PLATELET VOLUME 10.7 fL (7.4-10.4); MONOCYTES 7.6 % (2-11); NEUTROPHILS 82.3 % (40-80); PLATELET COUNT 267 10x3/uL (130-400); RBC 3.07 10x6/uL (4.20-6.10); RDW 17.5 % (11.5-14.5)
[2017-05-03 05:26] LABS: WBC 6.6 10x3/uL (4.8-10.8)
[2017-05-03 05:37] LABS: CALCIUM 8.3 mg/dL (8.5-10.1); CARBON DIOXIDE 23.1 mmol/L (21.0-32.0); CREATININE - SERUM 2.6 mg/dL (0.6-1.3); POTASSIUM - SERUM 4.1 mmol/L (3.5-5.1)
--- NOTE | 2017-05-03 15:00 | NUR ---
SPOKE WITH DR. SUMNER ABOUT CXR AND CHANGE FROM YESTERDAYS CXR WITH NEW ORDERS RECD. AND NOTED.
--- NOTE | 2017-05-03 16:00 | NUR ---
CALLING REPORT TO FLOOR NURSE FOR ROOM 2108, NURSE TO CALL BACK
--- NOTE | 2017-05-03 17:30 | NUR ---
TRANSFER FROM ER BY BED. OREINTED TO ROOM. AT BS. CALL LIGHT IN REACH. WILL CONT. PLAN OF CARE.
--- NOTE | 2017-05-03 19:00 | NUR ---
ROUNDING NOTE: AT CHANGE OF SHIFT, PT IS AWAKE, ALERT, ORIENTED X2. PT IS DISORIENTED TO TIME, BUT HIS KNOWS SELF AND PLACE. PT IS ON 2L OF OXYGEN VIA N/C. RIGHT FOREARM SALINE LOC. RIGHT GROIN CATH SITE IS SOFT W/ GOOD PULSE AND DSG IS C/D/I. ON MONITOR, PT IS CONTROLLED AFIB W/ HR 68. WILL CONT TO MONITOR.
[2017-05-04] VITALS (7 sets, daily range): BP systolic 146–181; BP diastolic 52–83
[2017-05-04 05:23] LABS: BASOPHILS 0 % (0-2); EOSINOPHILS 2.6 % (0-7); HEMATOCRIT 27.3 % (42.0-54.0); HEMOGLOBIN 8.3 g/dL (13.5-17.5); IMMATURE GRANULOCYTES 0.6 % (0-5); LYMPHOCYTES 8.5 % (15-50); MCH 27.4 pg (26.0-34.0); MCHC 30.4 g/dL (31.0-37.0); MCV 90.1 fL (80.0-100.0); MEAN PLATELET VOLUME 10.7 fL (7.4-10.4); MONOCYTES 8.5 % (2-11); NEUTROPHILS 79.8 % (40-80); PLATELET COUNT 257 10x3/uL (130-400); RBC 3.03 10x6/uL (4.20-6.10); RDW 17.9 % (11.5-14.5); WBC 6.9 10x3/uL (4.8-10.8)
[2017-05-04 05:38] LABS: ANION GAP 15.3 mmol/L (8-16); CALCIUM 8.2 mg/dL (8.5-10.1); CARBON DIOXIDE 22.5 mmol/L (21.0-32.0); CREATININE - SERUM 2.8 mg/dL (0.6-1.3); POTASSIUM - SERUM 3.8 mmol/L (3.5-5.1)
--- NOTE | 2017-05-04 06:38 | NUR ---
PT HAS SLEPT THROUGH MOST OF THE SHIFT. UNABLE TO COLLECT STOOL SPECIMEN D/T NO BM DURING THIS SHIFT.
--- NOTE | 2017-05-04 09:04 | NUR ---
PATIENT ON PHONE WITH HIS AT THIS TIME. SPOKE TO PATIENTS UPON HIS REQUEST, LAB WORK REVIEWED. INFORMED PATIENTS THIS SNACK BAR CASHIER WOULD SPEAK TO PHYSICIANS IN REGARDS TO THE WAY PATIENT IS FEELING. NO DISTRESS. TELEMETRY LEADS REPLACED.
--- NOTE | 2017-05-04 10:15 | NUR ---
LUND CATHETER D/C'D ORDERED AT THIS TIME. URINAL PROVIDED TO PATIENT. PATIENT VERBALIZED NEED TO URINATE BY 1600.
--- NOTE | 2017-05-04 10:59 | NUR ---
CALLED AND SPOKE TO AAYUSH IN PHARMACY. FERRELICIT IV INFUSION STILL NOT TO FLOOR IT WAS ORDERED AT 0945. AAYUSH STATED THEY WOULD GET IT UP TO FLOOR SOON.
--- NOTE | 2017-05-04 11:18 | NUR ---
FSBS 251. 6 UNITS HUMALOG ADMINISTERED PER SLIDING SCALE. NO DISTRESS.
--- NOTE | 2017-05-04 15:49 | NUR ---
22 GAUGE REMOVED FROM RIGHT FOREARM. NO BLEEDING. IV INFILTRATED AND PATIENT COMPLAINING OF SORENESS. CATHETER TIP INTACT. 20 GAUGE IV PLACED TO LEFT UPPER ARM X 1 STICK. GOOD BLOOD RETURN, EASY FLUSH. TAPED DATED AND SECURED. TOLERATED IV PLACEMENT WELL. NO DISTRESS.
--- NOTE | 2017-05-04 16:11 | NUR ---
PATIENT URINATED 200 ML IN URINAL. CLEAR STRAW COLOR URINE.
--- NOTE | 2017-05-04 16:41 | NUR ---
FSBS 207. 4 UNITS HUMALOG ADMINISTERED PER SLIDING SCALE. NO DISTRESS.
--- NOTE | 2017-05-04 19:35 | NUR ---
PT IN BED RESTING QUIETLY. DENIES ANY PAIN OR NEEDS AT THIS TIME. BREATHING EVEN AND UNLABORED. WILL CTM.
--- NOTE | 2017-05-04 21:06 | NUR ---
PT REFUSED SCHEDULED [place]AN PACKET. ALL OTHER MEDS GIVEN. FSBS 170, 2 UNITS GIVEN PER SLIDING SCALE. DENIES ANY OTHER PAIN OR NEEDS AT THIS TIME. WILL CTM.
[2017-05-05 04:00] VITALS: BP 181/56
--- NOTE | 2017-05-05 07:20 | NUR ---
RECEIVED REPORT. ASSUMED CARE OF PATIENT. PATIENT STATES HE SLEPT WELL LAST NOC. ALERT/ORIENTED. CALL LIGHT WITHIN REACH. DENIES NEEDS. REFUSED INSULIN THIS AM, STATES HE DOES NOT EAT AM MEALS AND HASN'T FOR A NUMBER OF YEARS. NO DISTRESS.
[2017-05-05 08:00] VITALS: BP 177/68
--- NOTE | 2017-05-05 09:27 | NUR ---
PT AT BEDSIDE WORKING WITH PATIENT AT THIS TIME. NO DISTRESS.
[2017-05-05 10:18] LABS: BASOPHILS 0.1 % (0-2); EOSINOPHILS 2.3 % (0-7); HEMATOCRIT 28.9 % (42.0-54.0); HEMOGLOBIN 8.8 g/dL (13.5-17.5); IMMATURE GRANULOCYTES 1.1 % (0-5); MCH 27.6 pg (26.0-34.0); MCHC 30.4 g/dL (31.0-37.0); MCV 90.6 fL (80.0-100.0); MEAN PLATELET VOLUME 9.8 fL (7.4-10.4); MONOCYTES 6.3 % (2-11); NEUTROPHILS 82.2 % (40-80); PLATELET COUNT 223 10x3/uL (130-400); RBC 3.19 10x6/uL (4.20-6.10); RDW 17.7 % (11.5-14.5); WBC 7.3 10x3/uL (4.8-10.8)
[2017-05-05 10:26] LABS: TOTAL IRON BIND CAPACITY 209 ug/dl (260-445)
[2017-05-05 10:36] LABS: ANION GAP 15.7 mmol/L (8-16); CARBON DIOXIDE 23.5 mmol/L (21.0-32.0); CREATININE - SERUM 2.7 mg/dL (0.6-1.3); POTASSIUM - SERUM 4.2 mmol/L (3.5-5.1)
[2017-05-05 10:40] LABS: % SATURATION 13 % (15-55); IRON 29 ug/dl (35-150); UNSAT IRON BIND CAPACITY 180 ug/dl (150-375)
--- NOTE | 2017-05-05 11:04 | NUR ---
RETURNED CALL TO PATIENTS UPON REQUEST. REPORTED PATIENT IS DOING WELL. NO DISTRESS.
--- NOTE | 2017-05-05 11:33 | NUR ---
FSBS 352. 10 UNITS HUMALOG ADMINISTERED PER SLIDING SCALE. NO DISTRESS. CONTINUES TO SIT UP IN CHAIR AT BEDSIDE.
[2017-05-05 12:00] VITALS: BP 165/71
--- NOTE | 2017-05-05 14:28 | NUR ---
RESTING IN BED WITH EYES OPEN. AT BEDSIDE. NO DISTRESS. CALL LIGHT WITHIN REACH.
[2017-05-05 16:00] VITALS: BP 159/69
--- NOTE | 2017-05-05 16:59 | NUR ---
FSBS 257. 6 UNITS HUMALOG ADMINISTERED PER SLIDING SCALE. NO DISTRESS. SITTING TO SIDE OF BED CONSUMING PM MEAL.
[2017-05-05 20:49] VITALS: BP 157/66
[2017-05-06 01:18] VITALS: BP 154/70
[2017-05-06 05:25] VITALS: BP 188/80
[2017-05-06 06:15] LABS: BASOPHILS 0.1 % (0-2); EOSINOPHILS 3.9 % (0-7); HEMATOCRIT 27.9 % (42.0-54.0); HEMOGLOBIN 8.6 g/dL (13.5-17.5); IMMATURE GRANULOCYTES 0.6 % (0-5); MCH 27.7 pg (26.0-34.0); MCHC 30.8 g/dL (31.0-37.0); MONOCYTES 9.3 % (2-11); NEUTROPHILS 75.1 % (40-80); PLATELET COUNT 262 10x3/uL (130-400); RDW 17.7 % (11.5-14.5); WBC 7.2 10x3/uL (4.8-10.8)
[2017-05-06 06:30] LABS: ANION GAP 15.1 mmol/L (8-16); CALCIUM 7.9 mg/dL (8.5-10.1); CARBON DIOXIDE 23.9 mmol/L (21.0-32.0); CREATININE - SERUM 2.6 mg/dL (0.6-1.3)
--- NOTE | 2017-05-06 07:33 | NUR ---
AM ROUNDS PT UP TO SIDE OF BED, ASKED FOR A CUP OF ICE WATER, WILL PROVIDED PT WITH A CUP OF ICE WATER. LT UPPER ARM IV SL, RESP EVEN AND NONLABORED. BED LOW AND WHEELS LOCKED, CALL LIGHT IN REACH, NAD NOTED, WILL CONTINUE TO MONITOR.
[2017-05-06 08:00] VITALS: BP 173/66
--- NOTE | 2017-05-06 08:32 | NUR ---
AM MEDS GIVEN AT THIS TIME. PT SITTING UP TO SIDE OF BED, EATING BREAKFAST. SOSA WITH DIETARY AT BEDSIDE. PT WANTS PHYSICAL THERAPY TO GET HIM UP TO CHAIR. WILL HAVE PHYSICAL THERAPY COME AND HELP PT UP TO CHAIR. PT DENIES ANY OTHER NEEDS AT THIS TIME. CALL LIGHT IN REACH, NAD NOTED, WILL CONTINUE TO MONITOR.
--- NOTE | 2017-05-06 09:14 | NUR ---
Patient Name: MARIAMA ZUÑIGA Encounter No: [id number] : 1940 Primary Insurance: [employer] CHOICE PPO MCR ADVANT Anticipated DC Date: 05-02-2017 Planned Disposition: SHELTER FACILITY External Planned Provider[facility] DCP follow-up note: CM [facility], INFORMING CM THAT PT DOES NOT HAVE [facility] CRITERIA FOR INPATIENT REHAB. CM SPOKE TO PT IN ROOM, DISCUSSED REHAB OPTIONS. PT HAD ALREADY INFORMED CM ON LAST VISIT THAT HE WANTS REFERRED TO [place], CHOICE HAS BEEN SIGEND. PT VERIFIED THIS CHOICE. CM FAXED REFERRAL TO [facility] AT [phone]. [facility], , SPOKE TO SUSU, WHO WILL RECEIVE AND SCREEN REFERRAL FOR ADMISSION SOON POSSIBLE. CM SPOKE TO PT IN ROOM, PROVIDED AND DISCUSSED IMPORTANT MESSAGE FROM MEDICARE. PT DIRECTED CM TO CALL HIS SPOUSE REGARDING REHAB, PT IS NOT SURE THAT SHE IS WANTING HIM AT [place] FOR REHAB AND MAY HAVE ANOTHER REHAB IN MIND FOR HIM. CM CALLED LISTED PHONE FOR JOSE ANGEL HEWITT, , WHICH WAS DISCONNECTED. CM CALLED NUMBER FOR SAUL ZUÑIGA, , LEFT MESSAGE ASKING FOR RETURN CALL FROM JOSE ANGEL ZUÑIGA. CM CONTINUES TO WAIT ADMISSION DETERMINATION FROM [place]; CM ALSO WAITING RETURN CALL FROM PT'S SPOUSE REGARDING SHELTER FACILITY CHOICE. Lucas Hyman, CASE MANAGEMENT
--- NOTE | 2017-05-06 11:43 | NUR ---
BLOOD SUGAR OF 242, 4UNITS OF HUMALOG GIVEN PER S/S. PT UP TO CHAIR, PROVIDED PT WITH A BLANKET. PT DENIES ANY OTHER NEEDS AT THIS TIME. CALL LIGHT IN REACH, NAD NOTED, WILL CONTINUE TO MONITOR.
[2017-05-06 12:00] VITALS: BP 171/79
--- NOTE | 2017-05-06 12:09 | NUR ---
Peer to Peer set up with Frida Interiano APN and Dr Alka Kumar with [facility] for this patient. Will wait for a determinination. Megan Soto RN Clinical Liaison, Rehab
--- NOTE | 2017-05-06 12:38 | NUR ---
Nutrition follow-up: Diet: Low sodium, consistent CHO PO intake ~60% of meals RDN helped pt fill out todays menus; pt seems happy with menu selections. Labs reviewed Wt: 195# RDN following.
[2017-05-06 16:00] VITALS: BP 153/62
--- NOTE | 2017-05-06 16:28 | NUR ---
BLOOD SUGAR OF 264, 6UNITS GIVEN PER S/S. PT UP TO CHAIR, DENIES ANY NEEDS AT THIS TIME. CALL LIGHT IN REACH, NAD NOTED.
--- NOTE | 2017-05-06 19:20 | NUR ---
PT IN BED WITH HOB UP FOR COMFORT. WATCHING TV. FAMILY AT BEDSIDE. O2 @ 2L VIA NC. LEFT UPPER ARM SL. TELEMETRY. FSBS ACHS. URINAL. RIGHT GROIN DRESSING. BED IN LOWEST POSITION AND CALL LIGHT WITHIN REACH.
[2017-05-06 21:02] VITALS: BP 163/75
--- NOTE | 2017-05-07 00:21 | NUR ---
PT STATES, "I CAN'T BREATHE. I'M HAVING TROUBLE BREATHING." PT HAD O2 VIA NC OUT OF NOSE. I STATED, "YOU HAVE YOUR OXYGEN OUT." PT STATED, "OH IS THAT WHAT IT IS." PLACED OXYGEN BACK IN PT'S NOSE AND QUED TOLD HIM TO BREATHE IN THROUGH HIS NOSE AND OUT THROUGH HIS MOUTH. AFTER DOING THAT FEW TIMES. PT STATED, "I FEEL BETTER NOW."
[2017-05-07 00:30] VITALS: BP 167/54
[2017-05-07 05:27] LABS: BASOPHILS 0.2 % (0-2); EOSINOPHILS 3.9 % (0-7); HEMATOCRIT 26.1 % (42.0-54.0); HEMOGLOBIN 7.9 g/dL (13.5-17.5); IMMATURE GRANULOCYTES 0.5 % (0-5); LYMPHOCYTES 9.5 % (15-50); MCH 27.2 pg (26.0-34.0); MCHC 30.3 g/dL (31.0-37.0); MEAN PLATELET VOLUME 10.5 fL (7.4-10.4); MONOCYTES 9.6 % (2-11); NEUTROPHILS 76.3 % (40-80); PLATELET COUNT 233 10x3/uL (130-400); RDW 17.3 % (11.5-14.5); WBC 6.5 10x3/uL (4.8-10.8)
[2017-05-07 05:44] LABS: ANION GAP 13.1 mmol/L (8-16); CALCIUM 7.9 mg/dL (8.5-10.1); CARBON DIOXIDE 23.7 mmol/L (21.0-32.0); CREATININE - SERUM 2.7 mg/dL (0.6-1.3); POTASSIUM - SERUM 3.8 mmol/L (3.5-5.1)
[2017-05-07 06:03] VITALS: BP 142/59
[2017-05-07 08:07] VITALS: BP 168/60
[2017-05-07 09:17] LABS: FOLATE (FOLIC ACID) - SERUM 12.4 ng/mL (>3.0)
[2017-05-07 10:19] LABS: HEPATITIS C ANTIBODY <0.1 (0.0-0.9)
[2017-05-07 13:38] VITALS: BP 169/61
[2017-05-07 16:52] VITALS: BP 166/72
--- NOTE | 2017-05-07 18:17 | NUR ---
ALERT AND ORIENTED X4. AT BEDSIDE. RESTING IN BED. DENIES ANY NEEDS. BED LOCKED AND LOW. CALL LIGHT IN REACH. TWO SIDERAILS UP.
--- NOTE | 2017-05-07 19:55 | NUR ---
PT IN BED RESTING QUIETLY. DENIES ANY PAIN OR NEEDS AT THIS TIME. BREATHING EVEN AND UNLABORED. BED RAILS UP X2. BED IN LOW POSITION, CALL LIGHT WITHIN REACH.
--- NOTE | 2017-05-07 20:07 | NUR ---
PT C/O NOT BEING ABLE TO URINATE AND FEELING THE URGE TO HAVE TO GO. NOTICED DISTENTION. DID BLADDER SCAN. 999+ MLS URINE IN BLADDER. PAGED GARAGE DOOR SERVICE TECHNICIAN NGUYỄN TORRES. AWAITING CALL BACK.
--- NOTE | 2017-05-07 21:43 | NUR ---
RCVD CALL BACK FROM BRIAN ADRIAN. SHE STATED TO PUT IN A LUND TO HELP RELIEVE THE PTS DISCOMFORT FROM NOT BEING ABLE TO URINATE.
[2017-05-07 21:53] VITALS: BP 180/76
--- NOTE | 2017-05-07 22:12 | NUR ---
LUND CATHETER PLACED. 16F. IMMEDIATE RETURN OF 600 ML. LIGHT YELLOW URINE. PT STATES HE IS ALREADY FEELING "RELIEVED." BREATHING EVEN AND UNLABORED. WILL CTM.
[2017-05-08 02:37] VITALS: BP 166/64
[2017-05-08 05:07] LABS: BASOPHILS 0.2 % (0-2); EOSINOPHILS 3.6 % (0-7); HEMOGLOBIN 7.8 g/dL (13.5-17.5); IMMATURE GRANULOCYTES 0.5 % (0-5); LYMPHOCYTES 10.4 % (15-50); MCH 27.4 pg (26.0-34.0); MCV 91.2 fL (80.0-100.0); MEAN PLATELET VOLUME 10.8 fL (7.4-10.4); MONOCYTES 9.9 % (2-11); NEUTROPHILS 75.4 % (40-80); PLATELET COUNT 238 10x3/uL (130-400); RBC 2.85 10x6/uL (4.20-6.10); RDW 17.6 % (11.5-14.5); WBC 6.1 10x3/uL (4.8-10.8)
[2017-05-08 05:18] LABS: ANION GAP 13.2 mmol/L (8-16); CALCIUM 7.7 mg/dL (8.5-10.1); CARBON DIOXIDE 25.6 mmol/L (21.0-32.0); CREATININE - SERUM 2.6 mg/dL (0.6-1.3); POTASSIUM - SERUM 3.8 mmol/L (3.5-5.1); URIC ACID 10.1 mg/dL (2.6-7.2)
[2017-05-08 09:29] VITALS: BP 170/63
--- NOTE | 2017-05-08 10:52 | NUR ---
Recieved a call from Nneka Carrillo with [facility]. The deniel for acute inpatient rehab has been upheld. The attending physician Dr Torres and Dr Kumar the [facility] senior medical writer were never able to make a phone connection, and the time for a peer to peer has . The RALPH Hyman has been made aware. Megan Soto RN Clinical Liaison, Rehab
--- NOTE | 2017-05-08 11:08 | NUR ---
Patient Name: MARIAMA ZUÑIGA Encounter No: [id number] : 1940 Primary Insurance: [employer] CHOICE PPO MCR ADVANT Anticipated DC Date: 05-02-2017 Planned Disposition: RETIREMENT FACILITY External Planned Provider: [facility], MEDICARE REHAB BED DCP follow-up note: CM RECEIVED CALL FROM GALLO OF [facility], PT'S INSURANCE HAS UPHELD THE DENIAL FOR INPATIENT REHAB. CM CALLED PT'S SPOUSE, JOSE ANGEL, , INFORMED OF DENIAL, AGREED TO REHAB AT [facility]. CM CALLED [facility], , SPOKE TO [facility], REHAB BED AVAILABLE; FAXED REFERRAL TO [facility] AT [phone]. CM WAITING ADMISSION DETERMINATION FROM [facility]. Lucas Hyman, CASE MANAGEMENT
[2017-05-08 11:40] VITALS: BP 155/45
--- NOTE | 2017-05-08 16:35 | NUR ---
ALERT AND ORIENTED X4. SITTING UP IN CHAIR. BLOOD CONSENT SIGNED ON CHART. START UNIT PRBC TRANSFUSION ORDERED. TRANSFUSION STARTED AT 75mL/HR THROUGH 20G LEFT UPPER ARM IV. BP-139/59, P-66, R-20, T-97.4 ORAL. SINUS RHTHYM WITH PACs ON TELEMETRY. REMAIN IN ROOM FOR FIRST 15MINS TO MONITOR FOR ANY TYPE OF REACTION. CHAIR LOCKED. CALL LIGHT IN REACH. LUND SECURED TO RT INNER THIGH DRAINING BY GRAVITY.
--- NOTE | 2017-05-08 16:50 | NUR ---
ALERT AND ORIENTED X4. SITTING UP IN CHAIR. NO REACTION OBSERVED DURING FIRST 15MINS OF PRBC TRANSFUSION. INCREASE TRANSFUSION TO 115ml/HR. BP-146/64, T-97.4, P-64, R-22. DENIES ANY ITCHING OR BURING. CONITNUE PLAN OF CARE AND SAFETY PRECAUTIONS.
--- NOTE | 2017-05-08 17:05 | NUR ---
Patient Name: MARIAMA ZUÑIGA Encounter No: [id number] : 1940 Primary Insurance: [employer] CHOICE PPO MCR ADVANT Anticipated DC Date: 05-02-2017 Planned Disposition: GROUP HOME FACILITY External Planned Provider: [facility], MEDICARE REHAB BED. DCP follow-up note: [facility] CALLED , REPORTS SUBMITTING TO INSURANCE TODAY AND WAITING PRE AUTHORIZATION FOR REHAB SERVICES. Lucas Hyman, CASE MANAGEMENT
--- NOTE | 2017-05-08 19:51 | NUR ---
UNIT OF BLOOD INFUSION COMPLETED. NO ADVERSE REACTION NOTED. PATIENT IS SITTING UP IN CHAIR. DENIES ANY NEEDS AT THIS TIME.
[2017-05-08 21:32] VITALS: BP 153/75
--- NOTE | 2017-05-09 00:05 | NUR ---
PATIENT IS SLEEPING SOUNDLY WITH HIS MOUTH OPEN. HE HAD DENIED ANY PAIN. WHEN HE TOOK HIS MEDICATIONS HE WAS ALERT AND ORIENTED AND FOLLOWED DIRECTIONS. LUND CATHETER IN PLACE. OXYGEN 2 LITERS VIA NASAL CANNULA WHEN HE WEARS IT.
--- NOTE | 2017-05-09 00:11 | NUR ---
BUILDING CUSTODIAL SUPERVISOR AT BEDSIDE, CALL LIGHT IN REACH. WILL CONTINUE WITH PLAN OF CARE. 77 SR WITH PACS ON TELEMETRY
[2017-05-09 02:45] VITALS: BP 169/54
[2017-05-09 04:42] VITALS: BP 110/56
--- NOTE | 2017-05-09 04:53 | NUR ---
PATIENT IS SLEEPING SOUNDLY , MOUTH BREATHING.
[2017-05-09 06:17] LABS: BASOPHILS 0.1 % (0-2); EOSINOPHILS 2.5 % (0-7); HEMATOCRIT 27.9 % (42.0-54.0); HEMOGLOBIN 8.7 g/dL (13.5-17.5); IMMATURE GRANULOCYTES 0.7 % (0-5); MCH 28.2 pg (26.0-34.0); MCHC 31.2 g/dL (31.0-37.0); MCV 90.3 fL (80.0-100.0); MEAN PLATELET VOLUME 11.2 fL (7.4-10.4); MONOCYTES 10.7 % (2-11); PLATELET COUNT 247 10x3/uL (130-400); RBC 3.09 10x6/uL (4.20-6.10); RDW 17.9 % (11.5-14.5); WBC 6.8 10x3/uL (4.8-10.8)
[2017-05-09 06:42] LABS: CALCIUM 8.1 mg/dL (8.5-10.1); CARBON DIOXIDE 25.9 mmol/L (21.0-32.0); CREATININE - SERUM 2.7 mg/dL (0.6-1.3); POTASSIUM - SERUM 3.9 mmol/L (3.5-5.1)
--- NOTE | 2017-05-09 07:01 | NUR ---
0700-AM ROUNDING DONE WITH NIGHT NURSE. PATIENT IS SITTING ON SIDE OF BED ON ROOM AIR. OXYGEN IS LAYING ON BED, DENIES NEED FOR IT. REQUESTS BLACKL COFFEE, GIVEN. SALINE LOCK SEEN TO LEFT UPPER ARM. FOELY CATH SEEN PATENT WITH CLEAR YELLOW URINE. CALL LIGHT IN USE.
[2017-05-09 09:45] VITALS: BP 160/71
[2017-05-09 12:30] VITALS: BP 162/72
--- NOTE | 2017-05-09 13:05 | NUR ---
Patient Name: MARIAMA ZUÑIGA Encounter No: [id number] : 1940 Primary Insurance: [employer] CHOICE PPO MCR ADVANT Anticipated DC Date: 05-02-2017 Planned Disposition: [facility] External Planned Provider: [facility], MEDICARE REHAB BED DCP follow-up note: CM RECEIVED CALL FROM [facility] [place], , WHO REPORTS RECEIVING INSURANCE AUTHORIZATION FOR REHAB SERVICES, [facility] WILL CONTACT PT'S SPOUSE TO COMPLETE ADMISSION PAPERWORK TODAY. CM PROVIDED CALL NUMBER FOR JOSE ANGEL ZUÑIGA TO [facility]. HENOK JOHNSON NOTIFIED. CM SPOKE TO PT IN ROOM WHO IS STILL IN AGREEMENT WITH DISCHARGE TO REHAB AT [facility]. [place] TO NOTIFY CM WHEN PT'S SPOUSE COMPLETES ADMISSION PAPERWORK. FOR DISCHARGE, FAX DISCHARGE INFORMATION TO [facility] AT [phone], NURSE REPORT TO BE CALLED TO [place] AT [phone]. [facility] TO ARRANGE VAN TRANSPORT. Lucas Hyman, CASE MANAGEMENT
[2017-05-09] MEDS ORDERED: PLAVIX75 MG PO (13:17)
[2017-05-09] MEDS ORDERED: CORDARONE200 MG PO (13:18)
[2017-05-09] MEDS ORDERED: HYDRALAZINE HCL50 MG PO (13:18)
[2017-05-09] MEDS ORDERED: ASPIRIN81 MG PO (13:19)
[2017-05-09] MEDS ORDERED: BUMEX 1 MG TAB1 MG PO (13:21)
[2017-05-09] MEDS ORDERED: SODIUM BICARBO650 MG PO (13:23)
[2017-05-09] MEDS ORDERED: ULORIC40 MG PO (13:23)
--- NOTE | 2017-05-09 13:36 | NUR ---
SITTING ON SIDE OF BED, DENIES NEEDS AT THIS TIME.
--- NOTE | 2017-05-09 15:10 | NUR ---
PLACED ON BED ARNETT AGAIN. SMALL CLOT SEEN TO RECTAL AREA. SIVAN IRELAND PAGED. AWAITING CALL BACK. 1512-SIVAN IRELAND TO CALL BACK AND INFORMED OF CLOTS FROM RECTUM. SHE STATES TO CANCEL THE DISCHARGE AND TO CONSULT GI.
--- NOTE | 2017-05-09 15:22 | NUR ---
CALLED VIOLETTE (GRAIN UNLOADER) TO LET HIM KNOW THAT THE DISCHARGE FOR THIS PATIENT HAS BEEN CANCELLED.
--- NOTE | 2017-05-09 15:38 | NUR ---
DR LEES OFFICE TO CALL R/T CONSULT.
[2017-05-09 16:51] VITALS: BP 145/86
--- NOTE | 2017-05-09 19:40 | NUR ---
PT IN BED. FAMILY MEMBER AT BEDSIDE. DENIES NEEDS AT THIS TIME.
[2017-05-09 20:00] VITALS: BP 145/65
[2017-05-10] VITALS: BP 149/62
[2017-05-10 04:00] VITALS: BP 155/58
[2017-05-10 04:45] LABS: BASOPHILS 0.1 % (0-2); EOSINOPHILS 2.4 % (0-7); HEMATOCRIT 24.4 % (42.0-54.0); IMMATURE GRANULOCYTES 0.4 % (0-5); LYMPHOCYTES 10.8 % (15-50); MCH 27.7 pg (26.0-34.0); MCHC 30.7 g/dL (31.0-37.0); MEAN PLATELET VOLUME 10.3 fL (7.4-10.4); MONOCYTES 8.4 % (2-11); NEUTROPHILS 77.9 % (40-80); PLATELET COUNT 206 10x3/uL (130-400); RBC 2.71 10x6/uL (4.20-6.10); RDW 17.5 % (11.5-14.5); WBC 7.8 10x3/uL (4.8-10.8)
--- NOTE | 2017-05-10 04:45 | NUR ---
PT ASLEEP. RESPIRATIONS EVEN AND UNLABORED. PT BREATHING THROUGH MOUTH. 4L OF O2 NC. PT AWAKE WHEN WALK IN ROOM, DENIES ANY NEEDS. NO S/S OF DISTRESS. PT HAS HAD 4 BOWEL MOVEMENTS. DIARRHEA IS BLACK, COFFEE GROUND STOOL. BLOOD SEEN IN A RING AROUND STOOL. PT CLEANED, LINEN AND GOWN CHANGED EACH TIME NEEDED. PT BED LOW AND CALLLIGHT IN REACH. WILL CPOC
[2017-05-10 04:46] LABS: HEMOGLOBIN 7.5 g/dL (13.5-17.5)
[2017-05-10 04:56] LABS: INR 1.17 (0.85-1.17); PROTIME 14.8 SECONDS (11.6-15.0)
[2017-05-10 05:01] LABS: ANION GAP 12.5 mmol/L (8-16); CALCIUM 7.9 mg/dL (8.5-10.1); CARBON DIOXIDE 25.1 mmol/L (21.0-32.0); CREATININE - SERUM 2.8 mg/dL (0.6-1.3); POTASSIUM - SERUM 3.6 mmol/L (3.5-5.1)
--- NOTE | 2017-05-10 07:24 | NUR ---
ROUNDING MADE WITH PATIENT IN BED, SITTING AT 30 DEGREES. ON 2L PER NC. ON HEART MONITOR SHOWING CAF, HR 70. SALINE LOCK TO LEFT UPPER ARM. LUND CATH PATENT WITH YELLOW URNINE. 2+ EDEMA SEEN TO BILATERAL LEGS. PATIENT IS TO RECEIVE 2 UNITS OF BLOOD TODAY WHEN READY. NPO AT PRESENT TIME FOR EGD TODAY. WILL ELENI.
--- NOTE | 2017-05-10 08:14 | NUR ---
0810-FIRST OF 2 UNITS OF BLOOD STARTING TO TRANSFUSE SLOWLY AT 125 CC/HR. PATIENT REPORTS OF HAVING BLOOD IN PAST WITH NO REACTIONS. WILL MONITOR.
[2017-05-10 08:18] VITALS: BP 171/72
--- NOTE | 2017-05-10 10:49 | NUR ---
1ST UNIT OF BLOOD FINISHED WITH NO REACTIONS. BATH GIVEN IN BETWEEN UNITS THEN WILL HANG IV IRON PAST 2ND UNIT OF BLOOD.
--- NOTE | 2017-05-10 10:52 | NUR ---
Nutrition follow-up: Pt now NPO for EGD PO intake has been ~50-75% of meals Labs reviewed +BM Wt: 199# RDN following.
--- NOTE | 2017-05-10 11:07 | NUR ---
1105-2ND UNIT OF BLOOD STARTING TO SLOWLY TRANSFUSE AT 125 CC/HR. WILL MONITOR. STILL NPO FOR PROCEDURE TODAY.
[2017-05-10 12:30] VITALS: BP 178/74
--- NOTE | 2017-05-10 12:54 | NUR ---
CALL PLACED TO [facility] R/T BLOOD PRESSURE BEING SLIGHTLY ELEVATED WITH BLOOD. AWAITING CALL BACK. 1256-[facility] HERE ON FLOOR WITH NEW ORDERS.
--- NOTE | 2017-05-10 13:17 | NUR ---
1315-IV TO LEFT UPPER ARM STARTING TO LOOK SLIGHTLY SWOLLEN. RE-SITED WITH 20 X 1 STICK TO RIGHT WRIST.
--- NOTE | 2017-05-10 14:11 | NUR ---
1405-2ND UNIT OF BLOOD TRANSFUSED. WILL WAIT A LITTLE BIT BEFORE IRON TRANSFUSION. ASKED IF PATIENT WANTED A BATH, REFUSED. REPORTS THAT HE HAD 3 LAST NIGHT. TURNED TO RIGHT SIDE, BOTTOM IS CLEAN, NO STOOL OR BLOOD. PILLOW BEHING BACK FOR COMFORT. CALL LIGHT IN REACH. WILL MONITOR. STILL NPO
--- NOTE | 2017-05-10 15:48 | NUR ---
PRE-OP MEDS GIVEN ORDERED.
--- NOTE | 2017-05-10 16:32 | NUR ---
PLACED IN ENTERIC ISOLATION.
--- NOTE | 2017-05-10 18:42 | NUR ---
1820-TO GI LAB VIA BED.
--- NOTE | 2017-05-10 19:32 | NUR ---
PT ARRIVED BACK TO THE FLOOR. ROOM 2107 FROM [facility]. PT HAS A LARGE BLOODY, WATER LIKE STOOL. DR MCDONALD IS ON FLOOR AND IS AWARE. SHE IS ORDERING PLATLETS. PT STARTED ON FREQUENT VITALS. PT CLEANED UP, LINEN AND GOWN CHANGED. PT REPOSITIONED. DENIES ANY NEEDS AT THIS TIME. NO S/S OF DISTRESS. PT ON 2L O2 NC. WILL CPOC
[2017-05-10 20:00] VITALS: BP 151/50
--- NOTE | 2017-05-10 22:01 | NUR ---
PLATLETS STARTED AT 2209. TO RIGHT HAND IV. PREVITALS ARE 151/72 HR 66 DONE AT 2200. VITALS AT 2209 155/65 HR67. TEMP 98.5 PT HAS NO S/S OF DISTRESS. SITTING IN BED WATCHING TV. WILL CPOC
[2017-05-11] VITALS: BP 135/73
--- NOTE | 2017-05-11 01:55 | NUR ---
PT RIGHT WRIST IV INFLATRATION AND INDURATION. REMOVED AND PUT BANDAGE. PT RESTING IN BED WATCHING TV. O2 2L. PT DENIES ANY NEEDS. NOURISHMENT OFFERED. NO S/S OF DISTRESS. WILL CPOC
--- NOTE | 2017-05-11 03:42 | NUR ---
ASSISTED PT TO SIDE OF BED. PT SITTING ON SIDE OF BED. BED LOW AND CALL LIGHT IN REACH. ALARM ON. PT WILL CALL WHEN HE WANTS TO LAY BACK DOWN
[2017-05-11 04:00] VITALS: BP 142/87
[2017-05-11 04:35] LABS: BASOPHILS 0.2 % (0-2); EOSINOPHILS 1.9 % (0-7); HEMATOCRIT 27.8 % (42.0-54.0); HEMOGLOBIN 8.8 g/dL (13.5-17.5); IMMATURE GRANULOCYTES 0.4 % (0-5); LYMPHOCYTES 9.3 % (15-50); MCH 28.3 pg (26.0-34.0); MCHC 31.7 g/dL (31.0-37.0); MCV 89.4 fL (80.0-100.0); MEAN PLATELET VOLUME 10.8 fL (7.4-10.4); MONOCYTES 8.3 % (2-11); NEUTROPHILS 79.9 % (40-80); PLATELET COUNT 233 10x3/uL (130-400); RBC 3.11 10x6/uL (4.20-6.10); RDW 17.8 % (11.5-14.5); WBC 8.5 10x3/uL (4.8-10.8)
[2017-05-11 04:55] LABS: ALBUMIN 2.3 g/dL (3.4-5.0); ANION GAP 13.2 mmol/L (8-16); BILIRUBIN - DIRECT 0.14 mg/dL (0.00-0.30); BILIRUBIN - INDIRECT 0.36 mg/dL (0.00-1.00); BILIRUBIN - TOTAL 0.5 mg/dL (0.2-1.3); CALCIUM 8.1 mg/dL (8.5-10.1); CARBON DIOXIDE 24.2 mmol/L (21.0-32.0); CREATININE - SERUM 2.9 mg/dL (0.6-1.3); POTASSIUM - SERUM 3.4 mmol/L (3.5-5.1); PROTEIN - SERUM 6.1 g/dL (6.4-8.2)
--- NOTE | 2017-05-11 07:30 | NUR ---
REPORT RECIEVED. ASSISTED PT X2 ASSIST TO CHAIR. PT NOW RESTING QUIETLY IN CHAIR, BEDSIDE TABLE IN REACH. PT DENIES FURTHER NEEDS AND REPORTS FEELING BETTER TODAY. WILL CTM.
--- NOTE | 2017-05-11 07:45 | NUR ---
PT UP IN CHAIR. DENIES ANY NEEDS. 2 UNITS OF INSULIN FOR A FSBS OF 174. APPLE SAUCE FOR A SNACK. NO OTHER NEEDS. WILL CPOC
[2017-05-11 08:22] VITALS: BP 145/66
--- NOTE | 2017-05-11 08:45 | NUR ---
STARTED 22G IV TO PTS RIGHT HAND X1 STICK. CURRENTLY RUNNING ABX. WILL CTM.
--- NOTE | 2017-05-11 10:45 | NUR ---
SPOKE TO DR. JENSEN REGARDING PT REQUEST FOR PAIN MEDICINE. GAVE VERBAL ORDER FOR HYDROCODONE Q4HRS. WILL GIVE AND CTM.
[2017-05-11 12:24] VITALS: BP 141/70
--- NOTE | 2017-05-11 14:00 | NUR ---
PTS FAMILY VERY AGITATED REGARDING PTS DENTURES BEING MISSING. AWNING FRAME MAKER IS AWARE OF SITUTATION.
--- NOTE | 2017-05-11 15:27 | NUR ---
CLAMPED PTS LUND FOR BLADDER TRAINING AND TEACHING PROVIDED. PT AND VERBALIZED UNDERSTANDING. CL IN REACH, BED IN LOWEST, SIDE RAILS X2. WILL CPOC.
--- NOTE | 2017-05-11 17:00 | NUR ---
PT UNCLAMMPED LUND, REPORTS FEELING HIS BLADDER GETTING FULL. WILL CTM.
--- NOTE | 2017-05-11 18:30 | NUR ---
PT RESTING QUIETLY, RR EVEN AND UNLABORED. PT DENIES NEEDS AT THIS TIME, ASKED PT IF I COULD CLAMP HIS LUND AGAIN FOR BLADDER TRAINING. HE DID NOT WANT TO DO THAT AT THIS TIME. WILL PASS ALONG TO HAND STEMMER. WILL GIVE REPORT ON PT CONDITION FOR THE DAY.
--- NOTE | 2017-05-11 19:29 | NUR ---
PT ASLEEP. RESPIRATIONS EVEN AND UNLABORED. RRR. PT IS A MOUTH BREATHER. O2 AT 2L NC. NAME AND DATE PLACED ON BOARD. BED LOW AND CALL LIGHT IN REACH. WILL CPOC
[2017-05-11 20:00] VITALS: BP 146/79
--- NOTE | 2017-05-11 20:27 | NUR ---
PT AWAKE. AAO X4. ASKED FOR WATER. NOURISHMENT GIVEN AND REPOSITIONED IN BED. PT DENIES ANY OTHER NEEDS. NO S/S OF DISTRESS. WILL CPOC
[2017-05-12] VITALS: BP 142/74
[2017-05-12 04:00] VITALS: BP 137/83
[2017-05-12 04:55] LABS: BASOPHILS 0.2 % (0-2); HEMOGLOBIN 8.4 g/dL (13.5-17.5); IMMATURE GRANULOCYTES 0.5 % (0-5); LYMPHOCYTES 8.7 % (15-50); MCHC 31.1 g/dL (31.0-37.0); MEAN PLATELET VOLUME 10.7 fL (7.4-10.4); NEUTROPHILS 79.6 % (40-80); PLATELET COUNT 230 10x3/uL (130-400); RDW 17.6 % (11.5-14.5); WBC 8.3 10x3/uL (4.8-10.8)
[2017-05-12 05:07] LABS: ANION GAP 14.6 mmol/L (8-16); CALCIUM 8.2 mg/dL (8.5-10.1); CARBON DIOXIDE 23.8 mmol/L (21.0-32.0); CREATININE - SERUM 2.6 mg/dL (0.6-1.3); POTASSIUM - SERUM 3.4 mmol/L (3.5-5.1)
--- NOTE | 2017-05-12 08:39 | NUR ---
AM ROUNDS - PT IS IN BED AND AWAKE AT THIS TIME. PT ON 2L O2 VIA NC. IV TO RIGHT HAND, SL. PT IS ON ISOLATION. PT IS A&O. BED AT LOWEST POSITION. CALL POWELL IN USE/REACH. SIDE RAILS UP X2. NO NEEDS AT THIS TIME. WILL COTNINUE TO MONITOR
--- NOTE | 2017-05-12 09:08 | NUR ---
AM ROUNDS - PT IN BED AND AWAKE AT THIS TIME. NO NEEDS. LEFT CHEST INFUSAPORT. 02 AT 3L VIA NC. PEG TUBE LEFT SIDE. A&O. BED AT LOWEST PSOITION. CALL POWELL IN USE/REACH. SIDE RAILS UP X2. WILL COTNINUE TO MONITOR
[2017-05-12 12:04] VITALS: BP 188/82
[2017-05-12 16:12] VITALS: BP 174/75
--- NOTE | 2017-05-12 18:48 | NUR ---
PT IN BED RESTING WITH NO NEEDS. WILL CONTINUE TO MONITOR
--- NOTE | 2017-05-12 19:26 | NUR ---
D/C ASHELY AT 1400. WILL CONTINUE TO MONITOR
[2017-05-12 20:00] VITALS: BP 156/68
[2017-05-13] VITALS (9 sets, daily range): BP systolic 121–204; BP diastolic 61–106
[2017-05-13 05:39] LABS: BASOPHILS 0.1 % (0-2); EOSINOPHILS 2.3 % (0-7); HEMATOCRIT 27.6 % (42.0-54.0); HEMOGLOBIN 8.6 g/dL (13.5-17.5); IMMATURE GRANULOCYTES 0.3 % (0-5); LYMPHOCYTES 12.1 % (15-50); MCH 28.1 pg (26.0-34.0); MCHC 31.2 g/dL (31.0-37.0); MCV 90.2 fL (80.0-100.0); MEAN PLATELET VOLUME 10.9 fL (7.4-10.4); MONOCYTES 9.2 % (2-11); PLATELET COUNT 223 10x3/uL (130-400); RBC 3.06 10x6/uL (4.20-6.10); RDW 17.4 % (11.5-14.5); WBC 6.9 10x3/uL (4.8-10.8)
[2017-05-13 05:45] LABS: ANION GAP 11.1 mmol/L (8-16); CALCIUM 7.9 mg/dL (8.5-10.1); CARBON DIOXIDE 28.2 mmol/L (21.0-32.0); CREATININE - SERUM 2.5 mg/dL (0.6-1.3); POTASSIUM - SERUM 3.3 mmol/L (3.5-5.1)
--- NOTE | 2017-05-13 07:37 | NUR ---
RECIEVED REPORT ON PATIENT, PATIENT IS ALERT AND ORIENTED AT THIS TIME. PATIENT IS SR ON MONITOR WITH A RATE OF 71, PACS AND PVCS NOTED. PATIENT DENIES ANY NEEDS AT THIS TIME. BED IS LOW AND LOCKED. CALL LIGHT IN REACH. CPOC
--- NOTE | 2017-05-13 09:30 | NUR ---
MORNING MEDICATION GIVEN, NO ISSUES. PATIENT AT BEDSIDE. PATIENT DENIES ANY NEEDS AT THIS TIME. PAIN 7/10 AT THIS TIME. WILL GIVE PAIN MEDICATION WHEN TIME. WILL CONT TO MONITOR. CPOC
--- NOTE | 2017-05-13 10:23 | NUR ---
Patient Name: MARIAMA ZUÑIGA Admission Status: ER Accout number: [id number] Admission Date: 04-23-2017 : 1940 Admission Diagnosis:ANEMIA, UNSPECIFIED Attending: VON BEST Current LOS: 20 Anticipated DC Date: 05-14-2017 Planned Disposition: Long Term Facility Primary Insurance: HUMANA CHOICE PPO MCR ADVANT PLANNED EXTERNAL PROVIDER: [facility], MEDICARE REHAB BED Discharge Planning Comments: CM RECEIVED CALL FROM PT'S SPOUSE, JOSE ANGEL ZUÑIGA, ASKING TO SEE CM TODAY. CM MET WITH PT AND SPOUSE IN ROOM. PT'S SPOUSE REPORTS SHE IS UPSET, THAT OVER THE WEEKEND THE [facility] PUT PT'S TEETH IN SOLO CUP AND THEY ARE NOW LOST. SPOUSE REPORTS PT IS HAVING DIFFICULTY EATING WITHOUT HIS TEETH. SPOUSE REPORTS PT NOW HAS C-DIFF THAT THE HOSPITAL GAVE HIM FROM THE ANTIBIOTICS AND SHE SPENT 20 MINUTES WAITING ON SOMEONE TO ANSWER THE NURSE CALL LIGHT THIS MORNING AND THE WHOLE TIME SHE WAS IN THE ROOM, PEOPLE JUST WALKED BY, INCLUDING DOCTORS. PT REPORTS SHE HAS CALLED THE JOB COUNSELOR AND HAS REQUESTED ALREADY TO SPEAK TO THE HEAD NURSE. CM EXPRESSED APOLOGIES FOR ANY POOR CARE THAT THEY HAVE RECEIVED, PROVIDED AND DISCUSSED IMPORTANT MESSAGE FROM MEDICARE. SPOUSE REPORTS DISCHARGE PLAN IS FOR PT TO GO TO [facility] FOR REHAB AT DISCHARGE, ASKED CM TO ENSURE THE ARRANGEMENTS ARE STILL CURRENT. CM ASSURED PT AND SPOUSE THAT AN UPDATE WILL BE FAXED TO GEO AT [facility] TODAY FOR INSURANCE AUTHORIZATION OF REHAB SERVICES. CM CALLED GEO AT [facility], , LEFT DETAILED MESSAGE REGARDING PT'S CONDITION, C-DIFF AND POSSIBLE DISCHARGE TOMORROW OR DAY AFTER. CM FAXED UPDATE TO [facility] AT [phone]. [facility] TO NOTIFY CM WHEN NEW AUTHORIZATION FROM INSURANCE IS RECEIVED FOR REHAB SERVICES. FOR DISCHARGE, FAX DISCHARGE INFORMATION TO [facility] AT [phone], NURSE REPORT TO BE CALLED TO [facility] AT [phone]. [facility] TO ARRANGE VAN TRANSPORT. Lucas Hyman, CASE MANAGEMENT
--- NOTE | 2017-05-13 11:05 | NUR ---
PATIENT SITTING UP IN BED WITH AT BEDSIDE. TOLD PROTECTIVE SIGNAL INSTALLER HELPER PATIENT WAS DUE FOR HIS PAIN MEDS AT 1030. PULLED ELIDIAIA 5. ASKED PATIENT HIS PAIN LEVEL ON A 0-10 SCALE, HE DENIES PAIN AT THIS TIME. CHANTAL RETURNED TO [facility]. NO REQUESTS AT THIS TIME. CPOC.
--- NOTE | 2017-05-13 12:00 | NUR ---
PATIENT SITTING UP IN CHAIR, PATIENT IS NAUSEATED. WILL GET AN ORDER FOR ZOFRAN AND GIVE. FAMILY AT BEDSIDE. WILL CONT TO MONITOR PATIENT. CPOC
--- NOTE | 2017-05-13 15:00 | NUR ---
PATIENT IS SLEEPING AT THIS TIME. NAD NOTED AT THIS TIME. CHEST RISES AND FALLS EQUALLY. BED LOW AND LOCKED. CPOC
--- NOTE | 2017-05-13 17:20 | NUR ---
PATIENT BP IS 204/106, SCHEDULED MEDICATIONS GIVEN. SEE EMAR. PATIENT IS NAUSEATED, PAGED BRIAN JOHNSON, ORDER GIVEN FOR PRN HYDRALAZINE 10MG AND ZOFRAN 4MG IV. IV SITED TO L HAND 22G. WILL GIVEN MEDICATION. CPOC
--- NOTE | 2017-05-13 17:53 | NUR ---
10 MG OF HYDRALAZINE GIVEN IV FOR BP 184/84. 4MG OF ZOFRAN GIVEN IV. WILL CONT TO MONITOR PATIENT. CPOC
--- NOTE | 2017-05-13 18:20 | NUR ---
PATIENT RESTING AT THIS TIME, AROUSES TO VOICE, INFORMED PATIENT THAT THE SHIFT IS ALMOST OVER, ASKED IF THERE WAS ANYTHING I COULD DO BEFORE I LEAVE, DENIES ANY NEEDS. CPOC
--- NOTE | 2017-05-13 18:20 | NUR ---
PATIENT IS LABORED BREATHING, BP STILL 190/101, O2 SAT 93%, DR MCDONALD AT BEDSIDE, STATED TO BLADDER SCAN PATIENT AND GET LUND FOR RETENTION. BLADDER SCANNED PATIENT, 611 ML IS READING. 16FR LUND PLACED. YELLOW URINE DRAINING. WILL CONT TO MONITOR PATIENT. CHEST XRAY HAS BEEN ORDERED. CPOC
--- NOTE | 2017-05-13 18:45 | NUR ---
1000ML OF YELLOW URINE IN LUND BAG. FOEY CLAMPED TO PREVENT SPASMS. WILL PASS ON TO EDITOR AT LARGE TO UNCLAMP. CPOC
--- NOTE | 2017-05-13 19:06 | NUR ---
PATIENT TEMP IS 100.6, PAGED BRIAN JOHNSON. PATIENT IS STILL LABORED BREATHING. O2 SAT 94%. WAITING ENGRAVER WOOD BACK. CPOC
--- NOTE | 2017-05-13 19:20 | NUR ---
SPOKE WITH BRIAN JOHNSON REGARDING PATIENT STATUS. SHE ORDERED LABS, AND ORDERED TO TRANSFER TO ICU. DR DOLAN AND RENAL NOTIFIED.
--- NOTE | 2017-05-13 19:45 | NUR ---
ROUNDING NOTE: PT LAYING IN BED WITH HIS SITTING AT THE BEDSIDE. PER REPORT, PT WILL BE GOING TO ICU SHORTLY. PT IS NOTED TO BE PALE WITH VERY LABORED BREATHING DESPITE OXYGEN AT 4L PER NC. ORDERED STAT CXR, WHICH WAS ALREADY DONE, BUT RESULTS ARE STILL PENDING. DAY SHIFT NURSE HAS BEEN IN CONTACT WITH MEDICAL TEAM AND THE FINAL DECISION IS TO SEND PT TO THE UNIT FOR CLOSER MONITORING. WHILE OBTAINING EKG, PT STARTED TO VOMIT IN BED, GAVE PT AN EMESIS PT. BLOOD PRESSURE IS RELATIVELY HIGH, BUT VS ARE OTHERWISE STABLE. OXYGEN SATS 94% WILL CONT TO CLOSELY MONITOR UNTIL PT IS TRANSFERRED TO THE UNIT. ATTEMPTING TO OBTAIN EKG, PT STARTED TO VOMIT IN BED.
[2017-05-13 19:49] LABS: BASOPHILS 0.1 % (0-2); EOSINOPHILS 0.5 % (0-7); HEMATOCRIT 29.6 % (42.0-54.0); HEMOGLOBIN 9.3 g/dL (13.5-17.5); IMMATURE GRANULOCYTES 0.4 % (0-5); LYMPHOCYTES 5.7 % (15-50); MCH 28.5 pg (26.0-34.0); MCHC 31.4 g/dL (31.0-37.0); MCV 90.8 fL (80.0-100.0); MEAN PLATELET VOLUME 10.8 fL (7.4-10.4); MONOCYTES 3.1 % (2-11); NEUTROPHILS 90.2 % (40-80); PLATELET COUNT 229 10x3/uL (130-400); RBC 3.26 10x6/uL (4.20-6.10); RDW 17.6 % (11.5-14.5)
[2017-05-13 20:16] LABS: CALC OSMOLALITY 298 mosm/kg (275-300); CALCIUM 7.9 mg/dL (8.5-10.1); CARBON DIOXIDE 25.8 mmol/L (21.0-32.0); CHLORIDE - SERUM 105 mmol/L (98-107); CKMB 0.6 U/L (0.0-3.6); CREATINE KINASE 35 UL (21-232); CREATININE - SERUM 2.6 mg/dL (0.6-1.3); POTASSIUM - SERUM 3.4 mmol/L (3.5-5.1); PRO BNP 14094 pg/mL (0-450); SODIUM 142 mmol/L (136-145); TROPONIN-I 0.038 ng/mL (0.000-0.060); UREA NITROGEN 47 mg/dL (7-18); eGFR NON AFRICAN AMERICAN 26 mL/min (90-120)
[2017-05-13 20:17] LABS: GLUCOSE 169 mg/dL (74-106)
[2017-05-13 20:27] LABS: WBC 16.9 10x3/uL (4.8-10.8)
--- NOTE | 2017-05-13 20:28 | NUR ---
PT ADMIT TO ICU VIA HOSPITAL STAFF. AT BEDSIDE. INSTRUCTED HER TO WAIT IN THE WAITING ROOM UNTIL WE HAVE HIM SITUATED IN HIS NEW ROOM. SHE SAID SHE UNDERSTOOD AND THAT IT WAS NO PROBLEM. V/S: HR 88 BPM, A-FIB VIA TELEMETRY, BP 147/72, TEMP 99.7 ORAL, RR 14, 02 SAT 91%. INCREASED O2 TO 5 L/MIN AND O2 SAT IS NOW 96%. PERRLA, R PUPIL IS 4 MM, SLUGGISH REACTION TO LIGHT. L PUPIL 2 MM, SLUGGISH REACTION TO LIGHT. PT STATES THAT HE WEARS DENTURES, BUT THE HOSPITAL STAFF THAT DID HIS EGD PUT THEM IN A STYROFOAM CUP AND LOST THEM. ORAL CARE PROVIDED. GENERALIZED SWELLING NOTED. BILAT ARMS AND LEGS HAVE SOME BRUISING. BUTTOCKS HAS A SMALL PRESSURE ULCER. REPOSITIONED FOR COMFORT. WILL LOOK INTO GETTING A WOUND CARE CONSULT ON HIS CASE. S1S2 AUDIBLE, RR 14, SHALLOW, DIMINISHED LUNG SOUNDS THROUGHOUT ALL LOBES. ABD IS SOFT, HYPOACTIVE BS X4, HE STATES THAT HE HAD HIS LAST BM 2 DAYS AGO. LUND CATH INTACT DRAINING CONCENTRATED URINE. RADIAL AND PEDAL PULSES PALP. BED ALARM ON, NON SKID SOCKS ON, BED IN LOWEST POSITION. PT IS LETHARGIC AT THIS TIME AND STATES THAT HE FEELS VERY TIRED. IS BACK IN THE ROOM AND STATED THAT HE HAD A CHANGE IN ACTIVITY AROUND 1000 THIS AM. HE IS A&O TO EVERYTHING EXCEPT TIME. REORIENTS EASILY. HE ALSO STATES THAT HE IS HAVE 7/10 PAIN IN HIS R KNEE. REPOSITIONED FOR COMFORT AND ADMINISTERED PRN PAIN MEDICATION. NO FURTHER NEEDS AT THIS TIME. WILL CONT WITH POC.
--- NOTE | 2017-05-13 21:00 | NUR ---
PT'S FSBS IS 167. REFUSED HUMALOG BUT STATES THAT THE LANTUS IS OKAY TO ADMINISTER. NO ISSUES NOTED AT THIS TIME. ORAL CARE PROVIDED, REPOSITIONED FOR COMFORT. WILL CONT WITH POC.
--- NOTE | 2017-05-13 23:00 | NUR ---
Reassessment complete. Pt is sleepy, but easy to arouse. He denies any pain at this time. Applied calmoseptine to his pressure ulcer on his coccyx, partial linen change due to a scant amount of pink exudate. Repositioned for comfort. Refilled refreshments. VSS. Will cont to monitor.
--- NOTE | 2017-05-13 23:00 | NUR ---
PT IS RESTING PEACEFULLY AT THIS TIME WITH NO SIGNS OF ACUTE DISTRESS NOTED. VSS. REASSESSMENT COMPLETE. NO CHANGES FROM PREVIOUS ASSESSMENT. PT IS EASY TO WAKE. DISORIENTED AT FIRST, BUT REORIENTS EASILIY. PT STATES THAT HE HAS NO PAIN AT THIS TIME. WILL CONT TO MONITOR.
[2017-05-14] VITALS (24 sets, daily range): BP systolic 127–158; BP diastolic 66–97
--- NOTE | 2017-05-14 01:00 | NUR ---
REPOSITIONED PT FOR COMFORT. NO NEEDS AT THIS TIME. ORAL CARE PROVIDED. VSS. WILL CONT TO MONITOR CLOSELY.
[2017-05-14 02:06] LABS: CKMB 0.3 U/L (0.0-3.6); CREATINE KINASE 29 UL (21-232); TROPONIN-I 0.037 ng/mL (0.000-0.060)
--- NOTE | 2017-05-14 03:00 | NUR ---
REASSESSMENT COMPLETE. PT HAD MEDIUM SIZED DARK, DIARRHEA BM. PARTIAL LINEN CHANGE COMPLETE. BUTT PASTE APPLIED TO COCCYX. REPOSITIONED FOR COMFORT. ORAL CARE PROVIDED. PT STATES THAT HE HAS GENERALIZED PAIN RAITING 01/07. ADMINISTERED PRN PAIN MED AND ELEVATED R LEG FOR COMFORT. PT DENIES ANY FURTHER REQUESTS. WILL CONT WITH POC.
[2017-05-14 04:04] LABS: BASOPHILS 0.1 % (0-2); EOSINOPHILS 0.2 % (0-7); HEMATOCRIT 29.4 % (42.0-54.0); IMMATURE GRANULOCYTES 0.3 % (0-5); LYMPHOCYTES 3.3 % (15-50); MCH 27.9 pg (26.0-34.0); MCHC 30.6 g/dL (31.0-37.0); MONOCYTES 6.7 % (2-11); NEUTROPHILS 89.4 % (40-80); PLATELET COUNT 232 10x3/uL (130-400); RBC 3.23 10x6/uL (4.20-6.10); RDW 17.5 % (11.5-14.5); WBC 18.1 10x3/uL (4.8-10.8)
[2017-05-14 04:34] LABS: ANION GAP 15.6 mmol/L (8-16); CARBON DIOXIDE 25.2 mmol/L (21.0-32.0); POTASSIUM - SERUM 3.8 mmol/L (3.5-5.1)
--- NOTE | 2017-05-14 05:00 | NUR ---
REPOSITIONED FOR COMFORT. ORAL CARE PROVIDED. REFILLED PT'S REFRESHMENTS. VSS. NO SIGNS OF ACUTE DISTRESS NOTED. WILL CONT WITH POC.
--- NOTE | 2017-05-14 07:00 | NUR ---
PT REPORT REC'D, PT CARE ASSUMED. PT AAOX4 SITTING UP IN BED, VSS, ROOM AIR. PT DENIES ANY PAIN UPON ASSESSMENT. LEFT HAND PIV S/L'ED, NO REDNESS OR SIGNS OF INFILTRATION, DRESSING CDI. LUND CATHETER FREE OF KINKS TO GRAVITY WITH URINE RETURN. REDNESS NOTED TO COCCYX/BUTTOCKS, SHIFT ASSESSMENT COMPLETED, SEE FLOW SHEET. ROOM FREE OF CLUTTER, CALL LIGHT IN REACH, BED ALARM ACTIVE, WILL CONTINUE TO MONITOR PT.
[2017-05-14 08:37] LABS: CKMB 1.3 U/L (0.0-3.6); CREATINE KINASE 35 UL (21-232); TROPONIN-I 0.042 ng/mL (0.000-0.060)
--- NOTE | 2017-05-14 09:34 | NUR ---
NUTRITION F/U CHART REVIEWED. PT VISIT. REMAINS IN ISOLATION, STATES HE ONLY ATE SMALL AMT BREAKFAST. WILL CONTINUE TO PROVIDE DIABETIC DIET, MONITOR PO INTAKE. RD FOLLOWING
--- NOTE | 2017-05-14 09:56 | NUR ---
1000 MEDS GIVEN PT IS WITHOUT C/O AT THIS TIME.. LEFT PIV IS PATENT AND IRON IS INFUSING..
--- NOTE | 2017-05-14 11:12 | NUR ---
Wound care: Noted non-blanchable redness with open areas to bilateral buttocks at coccyx region (Stage 2 pressure injury). Recommend calmoseptine cream be applied to this area as needed for protection from moisture. Also recommend air overlay mattress. Pt is able to assist with turning and repositioning he will just need to be reminded to do so. Wound care will continue to monitor.
--- NOTE | 2017-05-14 11:27 | NUR ---
1100 WOUND CCARE IN TO SEE PT AND EXAMINED COCCYX AREA.. ORDERS RECIEVED..
--- NOTE | 2017-05-14 19:00 | NUR ---
Shift assessment complete. Pt is A&O x4 with no complaints of pain at this time. Thrush noted on pt's tongue, oral care provided. S1S2 audible, diminished lung sounds throughout all lobes, regular resp rate, even and unlabored. ABD is soft and non-tender to touch, BS active x4. Balderas cath intact draining concentrated martín urine. SCDs removed and skin assessed, WNL. Generalized swelling noted, bilat arms/legs have bruising noted. Chest has a midline scar. Stage II pressure ulcer on coccyx. Repositioned for comfort. Refilled refreshments. V/S: HR 85, a-fib, BP 149/78 NIBP, Temp 98.3 Axillary, RR 14, O2 sat 98%, 4 L/min via NC. No further needs at this time. Will cont with poc.
--- NOTE | 2017-05-14 21:20 | NUR ---
at bedside in good spirits. Updated her on pt's condition. FSBS 170, and pt refused Humalog insulin due to pt's decrease in appetite. Administered lantus as scheduled. Oral care provided. Repositioned for comfort. They deny any further requests at this time. Flushed L hand PIV, no signs of infiltration. Will cont to monitor.
[2017-05-14 22:36] LABS: APPEARANCE HAZY (CLEAR); BACTERIA MANY /hpf (NONE SEEN); BILIRUBIN NEGATIVE (NEGATIVE); COLOR YELLOW (YELLOW); GLUCOSE NEGATIVE (NEGATIVE); KETONE NEGATIVE (NEGATIVE); NITRITE NEGATIVE (NEGATIVE); PROTEIN 1+ mg/dL (NEGATIVE); RED CELLS - URINE 0-5 /hpf (0-5); SPECIFIC GRAVITY 1.015 (1.005-1.020); UROBILINOGEN NORMAL (NORMAL); WHITE CELLS - URINE >50 /hpf (0-5)
--- NOTE | 2017-05-14 23:00 | NUR ---
Reassessment complete. No changes noted from previous assessment. Oral care provided, repositioned for comfort. Applied calmoseptine to pressure ulcer. No further needs at this time. Will cont to monitor.
[2017-05-15] VITALS (16 sets, daily range): BP systolic 99–170; BP diastolic 54–86
--- NOTE | 2017-05-15 00:40 | NUR ---
Pt states that his generalized acheing pain raiting as a 01/07. Administered PRN pain medication per request and repositioned for comfort. Elevated R leg on pillow. He states that he is comfortable at this time. Will cont to monitor.
--- NOTE | 2017-05-15 03:30 | NUR ---
Reassessment complete. No changes from previous assessment. Repositioned for comfort. Oral care provided, gleason care provided. VSS. Will cont with POC.
[2017-05-15 04:40] LABS: BASOPHILS 0.1 % (0-2); EOSINOPHILS 0.2 % (0-7); HEMATOCRIT 26.6 % (42.0-54.0); HEMOGLOBIN 8.4 g/dL (13.5-17.5); IMMATURE GRANULOCYTES 0.5 % (0-5); LYMPHOCYTES 3.6 % (15-50); MCH 28.7 pg (26.0-34.0); MCHC 31.6 g/dL (31.0-37.0); MCV 90.8 fL (80.0-100.0); MONOCYTES 6.3 % (2-11); NEUTROPHILS 89.3 % (40-80); PLATELET COUNT 215 10x3/uL (130-400); RBC 2.93 10x6/uL (4.20-6.10); RDW 17.6 % (11.5-14.5); WBC 19.2 10x3/uL (4.8-10.8)
[2017-05-15 04:55] LABS: ANION GAP 11.4 mmol/L (8-16); CARBON DIOXIDE 29.9 mmol/L (21.0-32.0); CREATININE - SERUM 3.2 mg/dL (0.6-1.3); POTASSIUM - SERUM 3.3 mmol/L (3.5-5.1); URIC ACID 9.6 mg/dL (2.6-7.2)
--- NOTE | 2017-05-15 05:00 | NUR ---
Pt decribes his pain as generalized and as a 7/10. Repositoned for comfort. Administered PRN pain medication. Refilled refreshments. Placed BP cuff on R arm due to swelling and itching. Lotion applied to L upper arm. No further requests. Will cont with POC.
--- NOTE | 2017-05-15 07:15 | NUR ---
PT ALERT AND ORIENTED, VSS, L ARM PIV SALINE LOCK, 02 4L NC, SPO2 98, LOWERED TO 3L NC, LUND DRAINING CONCENTRATED URINE, CONTINUES ON CONTACT ISOLATION FOR CDIFF, DENIES PAIN, FRESH WATER AND CRANBERRY JUICE PROVIDED PER REQUEST
--- NOTE | 2017-05-15 09:00 | NUR ---
PT OFFERED BREAKFAST, REQUESTED CREAM OF WHEAT AND THEN REFUSED, DRANK CLYDE, AT BEDSIDE, DENIES QUESTIONS, TOLERATED AM MEDS WELL, WILL CONTINUE TO MONITOR
--- NOTE | 2017-05-15 11:02 | NUR ---
TOTAL BED BATH AND LINEN CHANGE PROVIDED, PT WITH LARGE LOOSE STOOL IN BEDPAN, VSS, DENIES PAIN, WILL CONTINUE TO MONITOR
--- NOTE | 2017-05-15 11:37 | NUR ---
SPOKE WITH DR MATHEWS PT OK TO TRANSFER TO MED SURG
--- NOTE | 2017-05-15 14:57 | NUR ---
PT REPOSITIONED VSS, TOLERATES MEDICATIONS WELL, DENIES PAIN, WILL CONTINUE TO MONITOR
--- NOTE | 2017-05-15 16:40 | NUR ---
called report to daron as pt is to tranfer to 2126, attempted to call pt cell, work, home phone and sons phone, all numbers are disconnected or have no voicemail set up. will try again shortly
--- NOTE | 2017-05-15 17:55 | NUR ---
TRANSFER FROM ICU BY BED. OREINTED TO ROOM. CALL LIGHT IN REACH. WILL CONT. PLAN OF CARE.
--- NOTE | 2017-05-15 20:05 | NUR ---
RESUMED CARE OF PT, LYING IN BED RESPIRAITONS EVEN AND UNLABORED ON 2LPM VIA NC. LUND TO GRAVITY AND 1ST STEP OVERLAY INFLATED. AT BEDSIDE, PLAN OF CARE DISCUSSED. CALL LIGHT IN REACH. WILL CONTINUE TO MONITOR. SEE NURSE ASSESSMENT.
[2017-05-16 04:05] VITALS: BP 139/64
--- NOTE | 2017-05-16 05:31 | NUR ---
COMPENSATION SUPERVISOR AT BEDSIDE TO OBTAIN VITALS, WILL CONTINUE WITH PLAN OF CARE. CALL LIGHT IN REACH.
[2017-05-16 05:35] LABS: BASOPHILS 0.2 % (0-2); EOSINOPHILS 0.5 % (0-7); HEMATOCRIT 26.9 % (42.0-54.0); HEMOGLOBIN 8.3 g/dL (13.5-17.5); IMMATURE GRANULOCYTES 0.4 % (0-5); LYMPHOCYTES 5.7 % (15-50); MCH 28.1 pg (26.0-34.0); MCHC 30.9 g/dL (31.0-37.0); MCV 91.2 fL (80.0-100.0); MEAN PLATELET VOLUME 10.9 fL (7.4-10.4); MONOCYTES 5.3 % (2-11); NEUTROPHILS 87.9 % (40-80); PLATELET COUNT 206 10x3/uL (130-400); RBC 2.95 10x6/uL (4.20-6.10); RDW 17.4 % (11.5-14.5)
[2017-05-16 05:36] LABS: WBC 12.9 10x3/uL (4.8-10.8)
[2017-05-16 05:49] LABS: ANION GAP 11.6 mmol/L (8-16); CALCIUM 7.8 mg/dL (8.5-10.1); CARBON DIOXIDE 27.6 mmol/L (21.0-32.0); CREATININE - SERUM 3.4 mg/dL (0.6-1.3); POTASSIUM - SERUM 3.2 mmol/L (3.5-5.1)
--- NOTE | 2017-05-16 07:30 | NUR ---
RECEIVED PT IN BED AAOX4 RESP UNLABORED PT DENIES ANY NEEDS OR DISCOMFORT AT THIS TIME STATES IS NOT GOING TO TAKE LANTUS INSULIN MY SUGAR DROPS TO FAST GLUCOSE 118
[2017-05-16 08:54] VITALS: BP 166/74
--- NOTE | 2017-05-16 10:39 | NUR ---
Patient Name: MARIAMA ZUÑIGA Encounter No: [id number] : 1940 Primary Insurance: [employer] CHOICE PPO MCR ADVANT Anticipated DC Date: 05-14-2017 Planned Disposition: Long-Term Facility External Planned Provider: [facility], MEDICARE REHAB BED DCP follow-up note: FAXED UPDATE TO [facility] OF [facility] AT [phone]. [facility] WILL SUBMIT FOR AUTHORIZATION FROM INSURANCE FOR REHAB SERVICES WHEN PT IS CLOSE TO BEING STABLE FOR DISCHARGE TO REHAB. FOR DISCHARGE, FAX DISCHARGE INFORMATION TO [facility] AT [phone], NURSE REPORT TO BE CALLED TO [facility] AT [phone]. [facility] TO ARRANGE VAN TRANSPORT. Lucas Hyman, CASE MANAGEMENT
[2017-05-16 12:55] VITALS: BP 146/70
[2017-05-16 16:01] VITALS: BP 148/63
[2017-05-16 21:58] VITALS: BP 145/75
--- NOTE | 2017-05-17 02:07 | NUR ---
CALL LIGHT IN REACH, WILL CONTINUE WITH PLAN OF CARE. 73 SA ON TELEMETRY
[2017-05-17 02:20] VITALS: BP 146/77
[2017-05-17 05:18] VITALS: BP 91/38
[2017-05-17 06:34] LABS: BASOPHILS 0.1 % (0-2); EOSINOPHILS 0.9 % (0-7); HEMATOCRIT 26.9 % (42.0-54.0); HEMOGLOBIN 8.3 g/dL (13.5-17.5); IMMATURE GRANULOCYTES 0.5 % (0-5); LYMPHOCYTES 7.2 % (15-50); MCHC 30.9 g/dL (31.0-37.0); MCV 90.9 fL (80.0-100.0); MEAN PLATELET VOLUME 10.9 fL (7.4-10.4); MONOCYTES 8.6 % (2-11); NEUTROPHILS 82.7 % (40-80); PLATELET COUNT 215 10x3/uL (130-400); RBC 2.96 10x6/uL (4.20-6.10); RDW 17.3 % (11.5-14.5)
[2017-05-17 06:46] LABS: WBC 8.8 10x3/uL (4.8-10.8)
[2017-05-17 06:56] LABS: ANION GAP 10.9 mmol/L (8-16); CARBON DIOXIDE 27.4 mmol/L (21.0-32.0); CREATININE - SERUM 3.8 mg/dL (0.6-1.3); POTASSIUM - SERUM 3.3 mmol/L (3.5-5.1); URIC ACID 9.4 mg/dL (2.6-7.2)
[2017-05-17 08:38] VITALS: BP 166/76
--- NOTE | 2017-05-17 08:41 | NUR ---
RESTS IN ISOLATION ROOM. CALL LIGHT IN REACH. WILL MONITOR NEEDS.
[2017-05-17 12:00] VITALS: BP 148/74
--- NOTE | 2017-05-17 14:14 | OP ---
PATIENT NAME: MARIAMA ZUÑIGA MEDICAL RECORD: [id number] :40 LOCATION:D.M2 D.2127 ADMISSION DATE:04/23/17 SURGEON: DAREN DOLAN MD DATE OF OPERATION: 05/02/2017 PROCEDURE: 1. PTCA stent vein graft to left circumflex. 2. Left heart catheterization. 3. Selective coronary angiography. 4. Vein graft angiography. 5. VALADEZ angiography. PROCEDURE IN DETAIL: After informed consent was obtained and after a detailed explanation of risks, benefits as well as alternative therapies, the patient elected to proceed with angiogram and angioplasty. The right femoral area was prepped and draped in normal sterile fashion. The right femoral artery was cannulated via modified Seldinger technique with placement of 6-Citizen Of [place] sheath. All catheters exchanged through this sheath. FINDINGS: The left ventriculogram was not performed due to dye conservation. SELECTIVE CORONARY ANGIOGRAPHY: 1. Left main showed no significant angiographic disease. 2. Left anterior descending is totally occluded. 3. VALADEZ to the LAD is widely patent. 4. Left circumflex has mild irregularities, previously placed stent is patent. There is total occlusion of the first obtuse marginal. 5. Vein graft to the first obtuse marginal was patent, but there is 99% stenosis in the mid shaft. 6. Right coronary artery is widely patent. There is 80+ percent stenosis distally in right coronary. PTCA STENT OF THE VEIN GRAFT TO THE LEFT CIRCUMFLEX: The stent used was a 2.75 x 38 mm [place], result was 0% residual stenosis. OVERALL IMPRESSION: Successful percutaneous transluminal coronary angioplasty stent of the vein graft to the obtuse marginal going from 90% initial stenosis to 0% residual stenosis. TRANSINT:[id number] Voice Confirmation ID: [id number] DOCUMENT ID: [id number] DAREN DOLAN MD at 1414 CC: [id number] DICTATION DATE: 05/02/17 162 SCAGLIOLA MECHANIC: 05/02/17 1643 [place] [address]
--- NOTE | 2017-05-17 14:53 | NUR ---
Rehab Prescreening Consult recieved. A request for acute inpatient rehab has been submitted to [facility] previously and it was denied. Requested a peer to peer for reconsideration that did not take place and the deniel was upheld. Spoke with the [facility] who said the patient had been approved by his insurance for a skilled unit, and he would discharge there today. Megan Soto RN Clinical Liaison, Rehab
--- NOTE | 2017-05-17 15:30 | NUR ---
Patient Name: MARIAMA ZUÑIGA Admission Status: ER Accout number: [id number] Admission Date: 04-23-2017 : 1940 Admission Diagnosis:ANEMIA, UNSPECIFIED Attending: VON BEST Current LOS: 24 Anticipated DC Date: 05-18-2017 Planned Disposition: Assisted Facility Primary Insurance: [employer] CHOICE PPO MCR ADVANT PLANNED EXTERNAL PROVIDER: [facility], MEDICARE REHAB BED Discharge Planning Comments: CM CALLED AND SPOKE TO GEO OF [facility] AT [phone]; GEO ADVISED THAT THEY HAVE AUTH FROM INSURANCE AND CAN ACCEPT TODAY. CM SPOKE TO PT IN ROOM WHO IS IN AGREEMENT WITH DISCHARGE TO [facility] FOR REHAB. IMPORTANT MESSAGE FROM MEDICARE PROVIDED AND EXPLAINED. CM CALLED PT'S SPOUSE, JOSE ANGEL, , ADVISED THAT PT WAS READY TO DISCHARGE TO REHAB. JOSE ANGEL REPORTS "THE SOONER THE BETTER" AND IS IN AGREEMENT WITH DISCHARGE TO [facility] FOR REHAB TODAY. JOSE ANGEL ASKED THAT CM ENSURE THAT BOTH OF PT'S BELONGING BAGS GO WITH PT TO REHAB AND TO PLEASE CALL HER AT [phone] WHEN A TURBINE SUBASSEMBLER TIME IS KNOWN FOR THE [facility]. CM SPOKE TO HENOK JOHNSON WHO ADVISED THAT PT REQUIRES ADDITIONAL NIGHT OF OBSERVATION AND WILL BE DISCHARGED TOMORROW TO REHAB. CM NOTIFIED PT IN ROOM, CALLED JOSE ANGEL ZUÑIGA AT [phone], LEFT DETAILED MESSAGE. CM NOTIFIED GEO AT [facility] WHO REPORTS THEY CAN ACCEPT PT FOR REHAB TOMORROW (SATURDAY). FOR DISCHARGE, FAX DISCHARGE INFORMATION TO [facility] AT [phone], NURSE REPORT TO BE CALLED TO [facility] AT [phone]. [facility] TO ARRANGE VAN TRANSPORT. Lucas Hyman, CASE MANAGEMENT
[2017-05-17 16:40] VITALS: BP 145/67
--- NOTE | 2017-05-17 18:30 | NUR ---
LYING QUIETLY WITH HOB UP. ON 1 ST STEP MATTRESS. [facility] SHOWSCAF.
--- NOTE | 2017-05-17 19:35 | NUR ---
RECEIVED REPORT, WILL ASSUME CARE OF PT, PT VISITING WITH FAMILY, DENIES ANY NEEDS, BED IS LOW, SRX2, CALL LIGHT IN REACH, WILL CONTINUE PLAN OF CARE
--- NOTE | 2017-05-17 23:28 | NUR ---
PT RESTING WITH EYES CLOSED. RESP EVEN AND REGULAR. SR UP X2, CALL LIGHT WITHIN REACH.
[2017-05-18 02:08] VITALS: BP 144/64
--- NOTE | 2017-05-18 04:58 | NUR ---
PT AWAKE, DENIES ANY NEEDS AT THIS TIME, BED IS LOW, SRX2, CALL LIGHT IN REACH, WILL CONTINUE PLAN OF CARE
[2017-05-18 06:37] VITALS: BP 142/94
[2017-05-18 06:51] LABS: BASOPHILS 0.2 % (0-2); EOSINOPHILS 1.6 % (0-7); HEMATOCRIT 27.1 % (42.0-54.0); HEMOGLOBIN 8.5 g/dL (13.5-17.5); IMMATURE GRANULOCYTES 0.8 % (0-5); LYMPHOCYTES 10.6 % (15-50); MCH 28.2 pg (26.0-34.0); MCHC 31.4 g/dL (31.0-37.0); MONOCYTES 11.8 % (2-11); PLATELET COUNT 211 10x3/uL (130-400); RBC 3.01 10x6/uL (4.20-6.10); RDW 17.4 % (11.5-14.5)
[2017-05-18 06:52] LABS: WBC 6.4 10x3/uL (4.8-10.8)
[2017-05-18 07:03] LABS: ANION GAP 13.8 mmol/L (8-16); CALCIUM 7.6 mg/dL (8.5-10.1); CARBON DIOXIDE 25.4 mmol/L (21.0-32.0); CREATININE - SERUM 3.8 mg/dL (0.6-1.3); POTASSIUM - SERUM 3.2 mmol/L (3.5-5.1)
--- NOTE | 2017-05-18 07:26 | NUR ---
AM ROUNDING- RECEIVED REPORT FROM BOLT SORTER NURSE [place]. PT IS CURRENTLY LAYING IN BED (ON FIRST STEP OVERLAY MATTRESS) WITH EYES CLOSED RESTING. ON 02 AT 2L VIA NC. ON MONITOR SHOWING CONTROLLED A-FIB, HR 91. IV SEEN TO LEFT WRIST THAT IS CURRENTLY SALINE LOCKED. LUND CATHETER SEEN. IN ENTERIC ISOLATION FOR C.DIFF. NO NEED AT THIS CURRENT TIME. WILL CONTINUE TO MONITOR AND CONTINUE WITH PLAN OF CARE.
[2017-05-18 08:00] VITALS: BP 170/78
--- NOTE | 2017-05-18 10:46 | NUR ---
JOSR MARTÍNEZ CAME TO INFORM ME THAT PTS IV INFILATRATED. HERNÁN, CHARGE NURSE IS ATTEMPTING TO SITE PT WITH IV CATHETER NOW.
--- NOTE | 2017-05-18 11:00 | NUR ---
HERNÁN ATTEMPTED TO SITE PT WITH 22G IV CATHETER THAT WAS NOT SUCCESSFUL. PT CURRENTLY HAS NO IV ACCESS.
[2017-05-18] MEDS ORDERED: FLAGYL500 MG PO (13:11)
[2017-05-18] MEDS ORDERED: FLORAJEN3 CAPS460 MG PO (13:11)
[2017-05-18] MEDS ORDERED: NYSTATIN ORAL SU5 ML PO (13:11)
[2017-05-18] MEDS ORDERED: CARAFATE1 G/10 ML PO (13:11)
[2017-05-18] MEDS ORDERED: BUMEX 1 MG TAB1 MG PO (13:11)
[2017-05-18] MEDS ORDERED: LANTUS INSULIN10 ML SC ×2 (13:11)
[2017-05-18] MEDS ORDERED: VANCOMYCIN250 MG/51 PO (13:11)
[2017-05-18] MEDS ORDERED: IPRAT-ALBUT 0.5-3 ML UPD (13:11)
--- NOTE | 2017-05-18 13:32 | NUR ---
Received phone call from warehouse lead about 30 mins ago. request to visit this pt and . went immediately. turns out wanted menus to fill out. I went down to nutrition dept, got correct (DM mech soft) menus, took them to . I waited while she filled them out. I returned them to nutrition dept myself. pt is set for food prefs thru Saturday morning Deepali Infante MSRDLD
[2017-05-18 16:00] VITALS: BP 129/59
--- NOTE | 2017-05-18 17:42 | NUR ---
SPOKE WITH [facility]. SPOKE WITH MALE COOKER HELPER ON UNIT. NURSE STATES THEY HAD NOT BEEN AWARE THAT PT WAS COMING. PARI TANNING CONSULTANT STATES SHE HAS TALKED TO TWO OTHER PEOPLE AT [facility] THAT WERE AWARE OF PT COMING. PARI TANNING CONSULTANT STATES SHE HAS NO IDEA WHY THEY WOULD NOT BE AWARE OF PT BEING ADMITTED (TRANSFERRED FROM HERE TO [facility]). COOKER HELPER ON UNIT TOOK PARI SLURRY BLENDER NUMBER AND STATES HE WILL CALLBACK.
--- NOTE | 2017-05-18 17:53 | NUR ---
PARI, IMAGERY ANALYST STATES PT IS JUST GOING TO BE D/C TOMORROW AM. PT AND INFORMED OF THIS AND ARE OKAY WITH THIS. PTS STATES "I'D RATHER HIM GO IN DAYLIGHT ANYWAY". PT IS CURRENTLY SITTING UP IN BED EATING DINNER. IS AT BEDSIDE. NO NEED AT CURRENT TIME. WILL CONTINUE TO MONITOR.
--- NOTE | 2017-05-18 18:35 | NUR ---
PT CALLED ME INTO ROOM TO STATE HE WANTS HIS LUND CATHETER OUT DUE TO IT HURTING HIM. I INFORMED PT THAT HE NEEDS TO DO BLADDER TRAINING BEFORE LUND COMING OUT. PT IS SAYING LUND CATHETER IS HURTING HIM AND HE WANTS IT OUT. THIS NURSE REMOVED LUND CATHETER WITH 8CC OF FLUID FROM [facility]. PT GIVEN URINAL. WILL CONTINUE TO MONITOR.
[2017-05-18 21:07] VITALS: BP 139/85
--- NOTE | 2017-05-18 21:35 | NUR ---
VLATE ENTRY 1136 CM RECEIVED TC FROM THE PATIENT'S VOICING CONCERNS REGARDING HER 'S CARE, IE HIS INSULIN, A BRUISE ON HIS BODY, HIS IV SITE AND IV FLUIDS. RALPH ADVISED THESE ARE NURSING ISSUES AND BEST ADDRESSED BY THE NURSING RE RECORDING MIXER. RALPH TELEPHONED THE NURSING RE RECORDING MIXER, BEKA. SHE HAD SPOKEN WITH THE PATIENT'S PREVIOUSLY AND PROVIDED HER THE RE RECORDING MIXER'S NUMBER. SHE WILL F/U. THE ALSO HAD QUESTIONS REGARDING THE MEDICAL PLAN. CM ADVSIED THE MD WILL BE ROUNDING. D/C ORDERS RECEIVED 1325. 1400 TC TO [facility]. ADVISED THE PATIENT WAS DISCHARGED AND PER CM NOTES [facility] WAS EXPECTING HIS ADMISSION TODAY. ADVISED TO FAX DISCHARGE INFORMATION TO [phone]. CONFIRMATION SHEET RECEIVED. TRANSPORATION TO BE ARRANGED BY [facility]. RALPH TELEPHONED PRIMARY NURSE TO ADVISE CONTACT PHONE NUMBER FOR REPORT. [phone] PRIMARY NURSE CALLED REPORT THIS LATE PM. SHE WAS INFORMED [facility] DID NOT HAVE ANYONE TO COMPLETE THE PAPERWORK AND WERE NOT EXPECTING HIM. REC CB AFTER NURSE SPOKE WITH THE RE RECORDING MIXER. PATIENT CAN BE ADMITTED SATURDAY BUT NOT TODAY. PRIMARY NURSE ADVISED PATIENT AND HIS . THE STATES PAPERWORK HAS BEEN COMPLETED.
[2017-05-19 00:42] VITALS: BP 146/81
[2017-05-19 04:46] VITALS: BP 148/73
[2017-05-19 05:16] LABS: BASOPHILS 0.1 % (0-2); EOSINOPHILS 1.6 % (0-7); HEMOGLOBIN 8.8 g/dL (13.5-17.5); IMMATURE GRANULOCYTES 0.7 % (0-5); LYMPHOCYTES 9.3 % (15-50); MCH 28.4 pg (26.0-34.0); MCHC 31.4 g/dL (31.0-37.0); MCV 90.3 fL (80.0-100.0); MEAN PLATELET VOLUME 10.9 fL (7.4-10.4); MONOCYTES 11.9 % (2-11); NEUTROPHILS 76.4 % (40-80); PLATELET COUNT 209 10x3/uL (130-400); RDW 17.1 % (11.5-14.5); WBC 6.8 10x3/uL (4.8-10.8)
[2017-05-19 05:39] LABS: ANION GAP 10.1 mmol/L (8-16); CALCIUM 7.8 mg/dL (8.5-10.1); CARBON DIOXIDE 28.3 mmol/L (21.0-32.0); CREATININE - SERUM 3.7 mg/dL (0.6-1.3); POTASSIUM - SERUM 3.4 mmol/L (3.5-5.1)
--- NOTE | 2017-05-19 07:05 | NUR ---
RECEIVED REPORT. ASSUMED CARE OF PATIENT. CALL LIGHT WITHIN REACH. PATIENT REPOSITIONED FOR COMFORT. DENIES NEEDS. PATIENT STATES HE DID NOT SLEEP WELL LAST NOC. PATIENT TO DISCHARGE TO [facility] TODAY. NO DISTRESS.
[2017-05-19 07:51] VITALS: BP 151/77
--- NOTE | 2017-05-19 08:47 | NUR ---
MEDICATED FOR PAIN AT THIS TIME. NO DISTRESS.
--- NOTE | 2017-05-19 08:50 | NUR ---
MEDICATED FOR PAIN AT THIS TIME. NO DISTRESS.
--- NOTE | 2017-05-19 09:44 | NUR ---
[address] [facility]. SPOKE WITH DAVID AND DARIAN. THEY ARE BOTH STATING THEY DO NOT HAVE NECESSARY PAPERWORK FOR ADMISSION TODAY. DARIAN STATES SHE WILL REVIEW THE REFERRALS AND CALL [facility], THE TRANSPORTATION PLANNING ENGINEER. AWAITING CALL BACK.
--- NOTE | 2017-05-19 09:46 | NUR ---
PATIENT STATES HE FEELS BETTER AFTER PRN NEBULIZER TX ADMINISTERED. PAIN CONTROLLED. NO DISTRESS.
--- NOTE | 2017-05-19 09:47 | NUR ---
CALLED [facility] AND SPOKE TO DARIAN Arroyo RN HORSE TREKKING GUIDE AND SHE STATED SHE IS LOOKING FOR PATIENTS PAPERWORK AND HAS SPOKEN TO PARI Franco THIS AM AND WILL CALL US WHEN [facility] READY TO ACCEPT PATIENT.
--- NOTE | 2017-05-19 11:17 | NUR ---
CALLED REPORT TO [facility]ALLO AT [facility]. SHE STATED SHE WILL CALL [facility] TO HAVE PATIENT PICKED UP AND REQUEST PORTABLE O2 AND A WHEELCHAIR.
--- NOTE | 2017-05-19 11:18 | NUR ---
CALLED AND SPOKE TO PATIENT SON TO LET HIM KNOW THAT PATIENT WILL BE GOING TO ROOM 612 AT [facility] AND THAT REPORT HAS BEEN CALLED TO [facility]. WE ARE WAITING FOR [facility] TO PICK PATIENT UP.
--- NOTE | 2017-05-19 11:26 | NUR ---
FSBS 137. NO INSULIN COVERAGE PER SLIDING SCALE.
--- NOTE | 2017-05-19 11:43 | NUR ---
1030 RECEIVED CB FROM DARIAN AT [facility]. SHE HAS SPOKEN WITH [facility], [facility]. THE PATIENT CAN BE DISCHARGED TO FACILITY TODAY. [facility] HAS A CONTRACT WITH [facility] FOR TRANSPORTATION. WHEN THE NURSE CALLS REPORT, THEY WILL CALL TO REQUEST TRANSPORTATION. RALPH SPOKE WITH MELISSA AND THE PRIMARY NURSE, HENRY. THE NURSE IS PREPARING TO CALL REPORT. PATIENT IS ASSIGNED TO RM 612. PATIENT IS BATHE, DRESSED AND READY TO GO TO [facility] INTO A SKILLED BED.
--- NOTE | 2017-05-19 11:45 | NUR ---
22 GAUGE IV REMOVED FROM RIGHT HAND. NO BLEEDING FROM SITE. CATHETER TIP INTACT. 2X2 GAUZE APPLIED AND SECURED WITH TAPE. TOLERATED IV REMOVAL WELL. DISCHARGE INSTRUCTIONS PROVIDED TO PATIENT. VERBALIZED UNDERSTANDING OF ALL INSTRUCTIONS PROVIDED AND THAT ASSISTED STAFF WILL CARE FOR HIM THE WAY THAT HOSPITAL STAFF HAS TAKEN CARE OF HIM. NO DISTRESS.
--- NOTE | 2017-05-19 12:28 | NUR ---
[facility] BULK FOLDER HERE TO CHECK TO SEE WHAT ALL EQUIPMENT WILL BE NEEDED TO TRANSPORT PATIENT. PATIENT PICKUP IS SCHEDULED FOR 1330. REQUESTED PORTABLE OXYGEN AND WHEELCHAIR.
--- NOTE | 2017-05-19 13:28 | NUR ---
PATIENT LEFT UNIT VIA WHEELCHAIR WITH ALL PERSONAL BELONGINGS WITH REEL AND REWINDER OPERATOR FROM [facility]. NO DISTRESS UPON LEAVING UNIT.
--- NOTE | 2017-05-19 13:29 | NUR ---
CALLED SON, SAUL ZUÑIGA, INFORMED HIM THAT HIS DAD HAS JUST LEFT UNIT AND IS ON HIS WAY TO [place]. HE THANKED THIS CLASSIFIER OPERATOR FOR CALLING TO LET HIM KNOW.
[2017-05-20 14:17] LABS: RENIN ACTIVITY - PLASMA 1.352 ng/mL/hr (0.167-5.380)
[2017-05-20 15:18] LABS: CAT - DOPAMINE <30 pg/mL (0-48); CAT - EPINEPHRINE 33 pg/mL (0-62); CAT - NOREPINEPHRINE 497 pg/mL (0-874)
[2017-05-21 08:21] LABS: ALDOSTERONE <1.0 ng/dL (0.0-30.0)
--- NOTE | 2017-05-29 11:38 | CN ---
PATIENT NAME:MARIAMA ZUÑIGA MEDICAL RECORD: [id number] : 40 LOCATION:D. D.2127 ADMIT DATE: 04/23/17 ACCOUNT: [id number] CONSULTING PHYSICIAN: ERIN ALCANTARA MD REFERRING PHYSICIAN: VON BEST MD DATE OF CONSULTATION: 05/15/2017 CONSULT REQUESTING PHYSICIAN: Deepali Mathews MD REASON FOR CONSULTATION: Clostridium difficile colitis, leukocytosis and pneumonia. HISTORY OF PRESENT ILLNESS: Mr. Zuñiga is a 76-year-old gentleman who was admitted initially with renal failure, anemia, and then the patient developed diarrhea, which was positive for C. diff colitis. The patient was transferred to the ICU. Now he has cough with very little sputum production. REVIEW OF SYSTEMS: As in history of present illness. PAST MEDICAL HISTORY: 1. COPD. 2. History of pneumonia. 3. Diabetes mellitus. 4. Congestive heart failure, most likely diastolic dysfunction, followed by Dr. Macdonald. 5. Coronary artery disease. PAST SURGICAL HISTORY: 1. He has a gastric resection in the past. 2. CABG. 3. Cardiac catheterization and stent placement. ALLERGIES: ALLERGIC TO PENICILLIN. PRESENT MEDICATIONS: He is on Rocephin IV, Flagyl and vancomycin p.o. His other medication is reviewed. PERSONAL AND SOCIAL HISTORY: The patient is an ex-smoker. He is a nondrinker. FAMILY HISTORY: Noncontributory. PHYSICAL EXAMINATION: GENERAL: Now, the patient is lying comfortably in bed. He is not in acute distress. VITAL SIGNS: The blood pressure is 170/83, pulse is 66, respiration is 17, temperature is 98.8. SpO2 is 96% to 98% on 2 liters nasal cannula. HEENT: Conjunctivae pink, sclerae nonicteric. NECK: Neck is supple, no JVD. CHEST: The chest excursion is minimal on both sides. There are bibasilar crackles. No wheezing. HEART: Rhythm regular, normal sound, no murmur. ABDOMEN: Abdomen is soft. Bowel sounds present. No hepatosplenomegaly. RECTAL: Deferred. EXTREMITIES: No cyanosis, no clubbing, no pedal edema. CONSULT REPORT [id number] MARIAMA ZUÑIGA SKIN: The skin is warm, normal turgor. CENTRAL NERVOUS SYSTEM: The patient is awake and alert. There is no obvious cranial nerve abnormality. The gait was not tested. CHEST RADIOGRAPH: There are bibasilar infiltrates. LABORATORY DATA: CBC: WBC 19.2, hemoglobin 8.4, hematocrit 26.6, platelet count 215. Chemistry: Sodium 143, potassium 3.3, BUN is 50, creatinine 3.2, glucose 137. IMPRESSION: 1. Acute hypoxic respiratory failure. 2. Bibasilar pneumonia, possible hospital-acquired pneumonia, doubt aspiration pneumonia. 3. Clostridium difficile colitis. 4. Leukocytosis. 5. Pwskz-hl-wktcxgi kidney disease. 6. Congestive heart failure. 7. Chronic obstructive pulmonary disease without exacerbation. 8. Coronary artery disease. RECOMMENDATION: 1. I will discontinue the Rocephin and start on cefepime and Levaquin IV to cover for hospital-acquired pneumonia, Gram-negative rods. 2. Continue Flagyl and vancomycin p.o. 3. Albuterol, ipratropium nebulizer. 4. DVT prophylaxis. 5. Labs and chest radiograph in the morning. Dr. Mathews, thank you for involving me in the care of Mr. Zuñiga. TRANSINT:[id number] Voice Confirmation ID: [id number] DOCUMENT ID: [id number] ERIN ALCANTARA MD at 1138 CC: DEEPALI MATHEWS MD [id number] DICTATION DATE: 05/15/17 1325 WELFARE MANAGER: 05/15/17 1417 DIS IN 05/19/17 [place] [id number] [place] [id number]
== END 2017-05-19 13:31 | DRG 246 ==
LOC: D.ER 08:02 → OBSVTIME 10:42 → D.M2 10:42 → D.ICU 10:44 → D.M2 05-03 17:17 → D.ICU 05-13 20:24 → D.M2 05-15 17:54
PROVIDERS: Emergency Medicine; Family Medicine; Internal Medicine Gastroenterology; Internal Medicine Interventional Cardiology; Internal Medicine Nephrology; ADMIT Family Medicine
PROC: B2151ZZ Fluoroscopy of Left Heart using Low Osmolar Contrast (ICD-10-PCS; 2017-05-02)
PROC: B2181ZZ Fluoroscopy of Left Internal Mammary Bypass Graft using Low Osmolar Contrast (ICD-10-PCS; 2017-05-02)
PROC: 027034Z Dilation of Coronary Artery, One Artery with Drug-eluting Intraluminal Device, Percutaneous Approach (ICD-10-PCS; principal; 2017-05-02 13:30)
PROC: 4A023N7 Measurement of Cardiac Sampling and Pressure, Left Heart, Percutaneous Approach (ICD-10-PCS; 2017-05-02 13:30)
PROC: 0DB68ZX Excision of Stomach, Via Natural or Artificial Opening Endoscopic, Diagnostic (ICD-10-PCS; 2017-05-10)
DX: I25.119 Atherosclerotic heart disease of native coronary artery with unspecified angina pectoris (principal); I50.23 Acute on chronic systolic (congestive) heart failure; N17.0 Acute kidney failure with tubular necrosis; J69.0 Pneumonitis due to inhalation of food and vomit; I13.0 Hypertensive heart and chronic kidney disease with heart failure and stage 1 through stage 4 chronic kidney disease, or unspecified chronic kidney disease; E87.2 Acidosis; A04.72 Enterocolitis due to Clostridium difficile, not specified as recurrent; J98.11 Atelectasis; D63.1 Anemia in chronic kidney disease; E11.22 Type 2 diabetes mellitus with diabetic chronic kidney disease; N18.3 Chronic kidney disease, stage 3 (moderate); Z79.4 Long term (current) use of insulin; E09.65 Drug or chemical induced diabetes mellitus with hyperglycemia; E78.5 Hyperlipidemia, unspecified; R41.0 Disorientation, unspecified; M25.561 Pain in right knee; I48.0 Paroxysmal atrial fibrillation; E11.21 Type 2 diabetes mellitus with diabetic nephropathy; M10.9 Gout, unspecified; K59.00 Constipation, unspecified; Z87.891 Personal history of nicotine dependence; M54.16 Radiculopathy, lumbar region; K29.70 Gastritis, unspecified, without bleeding; E87.6 Hypokalemia

== ENCOUNTER 2017-06-05 05:45 | Emergency (ER) | payer MEDICARE ==
[2017-04-24 06:18] VITALS: BMI 29.3
[~2017-06-05 05:45] MED LIST changes: +ASPIRIN81 MG PO; +BUMEX 1 MG TAB1 MG PO; +CARAFATE1 G/10 ML PO; +CARDURA8 MG PO; +FLAGYL500 MG PO; +FLORAJEN3 CAPS460 MG PO; +HYDRALAZINE HCL50 MG PO; +NEURONTIN 300300 MG PO; +NYSTATIN ORAL SU5 ML PO; +SODIUM BICARBO650 MG PO; +TORSEMIDE20 MG PO; +ULORIC40 MG PO; +VANCOMYCIN250 MG/51 PO
== END 2017-06-05 07:04 | disposition home or self-care (01) ==
LOC: D.ER 05:45
DX: S00.03XA Contusion of scalp, initial encounter (principal); W07.XXXA Fall from chair, initial encounter; Y93.89 Activity, other specified; Y92.019 Unspecified place in single-family (private) house as the place of occurrence of the external cause; E11.9 Type 2 diabetes mellitus without complications; I12.9 Hypertensive chronic kidney disease with stage 1 through stage 4 chronic kidney disease, or unspecified chronic kidney disease; N18.9 Chronic kidney disease, unspecified

== ENCOUNTER 2017-06-07 14:15 | Inpatient (IN) | payer MEDICARE ==
[~2017-06-07] VITALS: Ht 180.3 cm; Wt 77.3 kg
--- NOTE | ~2017-06-07 | CN ---
PATIENT NAME:MARIAMA ZUÑIGA MEDICAL RECORD: [id number] : 40 LOCATION:D. D.2138 ADMIT DATE: 06/07/17 ACCOUNT: [id number] CONSULTING PHYSICIAN: AKHIL FITCH MD REFERRING PHYSICIAN: BEATRIZ AVALOS MD DATE OF CONSULTATION: 06/08/2017 HISTORY OF PRESENT ILLNESS: A 76-year-old gentleman with known history of coronary artery disease, resultant cardiomyopathy, chronic renal insufficiency, diabetes mellitus who was discharged fairly recently to [facility] where he was reported as doing fairly well until about 3 days ago and began having lower extremity edema, increasing dyspnea. Had Dopplers, however, was told he had DVT; however, these were unconfirmed via present Dopplers. Elevated BNP with volume overload. Creatinine actually is comparably better at discharge 3.7, currently 2.7. PAST MEDICAL HISTORY: Includes: 1. History of hypertension. 2. Hyperlipidemia. 3. Diabetes mellitus. 4. Chronic renal insufficiency. 5. Peripheral vascular disease. 6. Gastroesophageal reflux disease. ALLERGIES: PENICILLIN. MEDICATIONS: Typically include the Uloric 40 mg p.o. daily, Lantus 20 in a.m. and 10 in the p.m., Protonix 40 every day, Carafate 1 gm a.c. and at bedtime, Cardura 8 mg p.o. b.i.d., carvedilol 25 b.i.d., Plavix 75 every day. SOCIAL HISTORY: He has been in rehab for a protracted hospital stay. Has multiple medical problems. Good family support. Nonsmoker who was able to ambulate at the rehab for 84 feet by his report. REVIEW OF SYSTEMS: The patient reports easy bruising but reports no swollen glands. The patient reports no fever, no night sweats, no significant weight gain, no significant weight loss. No significant exercise tolerance. The patient reports no dry eyes, no irritation, no vision change. Patient reports no difficulty hearing and no ear pain. Patient reports no frequent nose bleeds or nose and sinus problems. Patient reports on arm pain on exertion. No shortness of breath while lying down. No history of heart murmur. Patient reports no cough, no wheezing or coughing up blood. Patient reports no abdominal pain, no vomiting. Normal appetite. No diarrhea and not vomiting blood. No nausea and no constipation. Patient reports no incontinence. No difficulty urinating. No hematuria. No increased frequency. Patient reports no muscle aches. No weakness, no arthralgias, no back pain. No swelling of the extremities. Patient reports no abnormal mole, no jaundice, no rashes. Reports no loss of consciousness. No weakness and no numbness. No seizures, dizziness, or headaches. The patient reports no depression, no sleep disturbance, feeling safe in a relationship and no alcohol abuse. Patient reports on fatigue. Reports no runny nose or sinus pressure. No itching, no hives, and no frequent sneezing. PHYSICAL EXAMINATION: CONSULT REPORT [id number] MARIAMA ZUÑIGA GENERAL: Chronically ill-appearing gentleman, no acute distress. VITAL SIGNS: Blood pressure 158/86, pulse 91 and regular. HEENT: Normocephalic, atraumatic. NECK: No bruits noted. HEART: Regular, II-III/ systolic ejection murmur. I do not hear a gallop. LUNGS: Fairly good air excursion, somewhat decreased breath sounds in the bases. ABDOMEN: Soft, nontender. EXTREMITIES: Pulses are decreased, 2+ edema. IMPRESSION: Xovhr-fb-beyzdca systolic dysfunction. We will give IV Bumex. Given his creatinine and potassium of 5, doubtful he would be a good candidate for ARB or MARY inhibitor. Further recommendations based on clinical course. TRANSINT:[id number] Voice Confirmation ID: [id number] DOCUMENT ID: [id number] AKHIL FITCH MD at 0817 CC: [id number] DICTATION DATE: 06/08/17 1004 COLD WORKING INSPECTOR: 06/08/17 1313 ADM IN [place] [id number] [place] [id number]
[2017-06-07 14:45] LABS: BASOPHILS 0.3 % (0-2); EOSINOPHILS 4.3 % (0-7); HEMATOCRIT 30.1 % (42.0-54.0); HEMOGLOBIN 9.2 g/dL (13.5-17.5); IMMATURE GRANULOCYTES 0.3 % (0-5); LYMPHOCYTES 10.1 % (15-50); MCH 28.1 pg (26.0-34.0); MCHC 30.6 g/dL (31.0-37.0); MEAN PLATELET VOLUME 10.3 fL (7.4-10.4); MONOCYTES 7.8 % (2-11); NEUTROPHILS 77.2 % (40-80); PLATELET COUNT 183 10x3/uL (130-400); RBC 3.27 10x6/uL (4.20-6.10); RDW 17.4 % (11.5-14.5)
[2017-06-07 15:00] LABS: ALBUMIN 2.7 g/dL (3.4-5.0); ANION GAP 14.1 mmol/L (8-16); BILIRUBIN - TOTAL 0.76 mg/dL (0.2-1.3); CALCIUM 8.7 mg/dL (8.5-10.1); CREATININE - SERUM 2.7 mg/dL (0.6-1.3); POTASSIUM - SERUM 5.1 mmol/L (3.5-5.1); PROTEIN - SERUM 6.9 g/dL (6.4-8.2)
[2017-06-07 15:08] LABS: TROPONIN-I 0.017 ng/mL (0.000-0.060)
[2017-06-07 16:16] LABS: APPEARANCE CLEAR (CLEAR); BILIRUBIN NEGATIVE (NEGATIVE); COLOR YELLOW (YELLOW); GLUCOSE NEGATIVE (NEGATIVE); KETONE NEGATIVE (NEGATIVE); NITRITE NEGATIVE (NEGATIVE); PROTEIN TRACE mg/dL (NEGATIVE); UROBILINOGEN NORMAL (NORMAL)
[2017-06-07 19:59] VITALS: BP 155/88
[2017-06-07 21:46] VITALS: BP 149/82
[2017-06-08] VITALS (7 sets, daily range): BP systolic 132–175; BP diastolic 77–88; BMI 27.9; BMI 29.1
[2017-06-08] MEDS ORDERED: FERROUS SULFAT325 MG PO (11:33)
[2017-06-09 00:19] VITALS: BP 174/82
[2017-06-09 04:51] LABS: BASOPHILS 0.3 % (0-2); EOSINOPHILS 4.1 % (0-7); HEMATOCRIT 29.2 % (42.0-54.0); IMMATURE GRANULOCYTES 0.2 % (0-5); LYMPHOCYTES 10.9 % (15-50); MCH 28.4 pg (26.0-34.0); MCHC 30.8 g/dL (31.0-37.0); MCV 92.1 fL (80.0-100.0); MEAN PLATELET VOLUME 10.6 fL (7.4-10.4); MONOCYTES 7.7 % (2-11); NEUTROPHILS 76.8 % (40-80); PLATELET COUNT 183 10x3/uL (130-400); RBC 3.17 10x6/uL (4.20-6.10); RDW 17.3 % (11.5-14.5); WBC 5.9 10x3/uL (4.8-10.8)
[2017-06-09 05:16] VITALS: BP 169/89
[2017-06-09 05:25] LABS: ANION GAP 12.9 mmol/L (8-16); CALCIUM 8.8 mg/dL (8.5-10.1); CARBON DIOXIDE 28.7 mmol/L (21.0-32.0); POTASSIUM - SERUM 4.6 mmol/L (3.5-5.1); URIC ACID 9.6 mg/dL (2.6-7.2)
[2017-06-09 11:42] VITALS: BP 158/73
[2017-06-09 16:07] VITALS: BP 126/66
[2017-06-09 20:00] VITALS: BP 152/71
[2017-06-10] VITALS: BP 147/69
[2017-06-10 04:00] VITALS: BP 151/65
[2017-06-10 06:10] LABS: BASOPHILS 0.4 % (0-2); EOSINOPHILS 5.7 % (0-7); HEMATOCRIT 30.1 % (42.0-54.0); HEMOGLOBIN 9.1 g/dL (13.5-17.5); IMMATURE GRANULOCYTES 0.2 % (0-5); LYMPHOCYTES 11.4 % (15-50); MCH 28.1 pg (26.0-34.0); MCHC 30.2 g/dL (31.0-37.0); MCV 92.9 fL (80.0-100.0); MEAN PLATELET VOLUME 10.8 fL (7.4-10.4); MONOCYTES 8.6 % (2-11); NEUTROPHILS 73.7 % (40-80); PLATELET COUNT 183 10x3/uL (130-400); RBC 3.24 10x6/uL (4.20-6.10); RDW 17.3 % (11.5-14.5); WBC 5.5 10x3/uL (4.8-10.8)
[2017-06-10 06:36] LABS: ANION GAP 12.2 mmol/L (8-16); CALCIUM 8.5 mg/dL (8.5-10.1); CARBON DIOXIDE 32.1 mmol/L (21.0-32.0); CREATININE - SERUM 3.1 mg/dL (0.6-1.3); POTASSIUM - SERUM 4.3 mmol/L (3.5-5.1)
[2017-06-10 08:18] VITALS: BP 163/75
[2017-06-10 12:27] VITALS: BP 149/83
[2017-06-10 16:38] VITALS: BP 155/89
[2017-06-10 21:06] VITALS: BP 141/79
[2017-06-11 00:58] VITALS: BP 135/89
[2017-06-11 05:43] LABS: BASOPHILS 0.3 % (0-2); EOSINOPHILS 5.4 % (0-7); HEMATOCRIT 28.8 % (42.0-54.0); HEMOGLOBIN 8.8 g/dL (13.5-17.5); IMMATURE GRANULOCYTES 0.3 % (0-5); LYMPHOCYTES 8.9 % (15-50); MCH 28.3 pg (26.0-34.0); MCHC 30.6 g/dL (31.0-37.0); MCV 92.6 fL (80.0-100.0); MEAN PLATELET VOLUME 10.5 fL (7.4-10.4); MONOCYTES 9.3 % (2-11); NEUTROPHILS 75.8 % (40-80); PLATELET COUNT 180 10x3/uL (130-400); RBC 3.11 10x6/uL (4.20-6.10); RDW 17.1 % (11.5-14.5); WBC 6.3 10x3/uL (4.8-10.8)
[2017-06-11 06:05] LABS: ANION GAP 8.9 mmol/L (8-16); CALCIUM 8.5 mg/dL (8.5-10.1); CARBON DIOXIDE 33.4 mmol/L (21.0-32.0); CREATININE - SERUM 3.1 mg/dL (0.6-1.3); POTASSIUM - SERUM 4.3 mmol/L (3.5-5.1)
[2017-06-11 06:32] VITALS: BP 122/68
[2017-06-11 08:22] VITALS: BP 130/61
[2017-06-11 12:37] VITALS: BP 156/66
[2017-06-11 16:28] VITALS: BP 133/62
[2017-06-11 21:26] VITALS: BP 117/59
[2017-06-12] VITALS: BP 185/62
[2017-06-12 06:27] VITALS: BP 135/63
[2017-06-12 07:07] LABS: BASOPHILS 0.1 % (0-2); EOSINOPHILS 3.9 % (0-7); HEMATOCRIT 29.5 % (42.0-54.0); HEMOGLOBIN 8.9 g/dL (13.5-17.5); IMMATURE GRANULOCYTES 0.3 % (0-5); LYMPHOCYTES 8.7 % (15-50); MCHC 30.2 g/dL (31.0-37.0); MCV 92.8 fL (80.0-100.0); MEAN PLATELET VOLUME 10.9 fL (7.4-10.4); MONOCYTES 9.5 % (2-11); NEUTROPHILS 77.5 % (40-80); PLATELET COUNT 173 10x3/uL (130-400); RBC 3.18 10x6/uL (4.20-6.10); WBC 7.2 10x3/uL (4.8-10.8)
[2017-06-12 07:28] LABS: ANION GAP 11.7 mmol/L (8-16); CALCIUM 8.6 mg/dL (8.5-10.1); CARBON DIOXIDE 31.2 mmol/L (21.0-32.0); CREATININE - SERUM 3.3 mg/dL (0.6-1.3); POTASSIUM - SERUM 3.9 mmol/L (3.5-5.1)
[2017-06-12 07:31] VITALS: BP 137/77
[2017-06-12 11:41] VITALS: BP 146/66
[2017-06-12 16:37] VITALS: BP 128/69; BP 188/87
[2017-06-12 21:03] VITALS: BP 147/99
[2017-06-13 05:40] VITALS: BP 121/63
[2017-06-13 05:51] LABS: BASOPHILS 0.2 % (0-2); EOSINOPHILS 3.8 % (0-7); HEMATOCRIT 27.7 % (42.0-54.0); HEMOGLOBIN 8.4 g/dL (13.5-17.5); IMMATURE GRANULOCYTES 0.2 % (0-5); LYMPHOCYTES 8.4 % (15-50); MCHC 30.3 g/dL (31.0-37.0); MCV 92.3 fL (80.0-100.0); MEAN PLATELET VOLUME 11.2 fL (7.4-10.4); MONOCYTES 8.5 % (2-11); NEUTROPHILS 78.9 % (40-80); PLATELET COUNT 180 10x3/uL (130-400); WBC 6.1 10x3/uL (4.8-10.8)
[2017-06-13 06:26] LABS: ANION GAP 11.9 mmol/L (8-16); CALCIUM 8.5 mg/dL (8.5-10.1); CARBON DIOXIDE 29.7 mmol/L (21.0-32.0); CREATININE - SERUM 3.5 mg/dL (0.6-1.3); POTASSIUM - SERUM 3.6 mmol/L (3.5-5.1)
[2017-06-13 08:34] VITALS: BP 148/34
[2017-06-13 12:25] VITALS: BP 138/65
[2017-06-13 14:06] VITALS: Ht 180.3 cm; Wt 77.3 kg
[2017-06-13 16:35] VITALS: BP 130/91
[2017-06-13 21:56] VITALS: BP 117/54
[2017-06-14 06:09] VITALS: BP 126/63
[2017-06-14 06:58] LABS: ANION GAP 13.4 mmol/L (8-16); CALCIUM 8.7 mg/dL (8.5-10.1); CARBON DIOXIDE 29.1 mmol/L (21.0-32.0); CREATININE - SERUM 3.6 mg/dL (0.6-1.3); POTASSIUM - SERUM 3.5 mmol/L (3.5-5.1)
[2017-06-14 08:25] LABS: BASOPHILS 0.3 % (0-2); EOSINOPHILS 4.5 % (0-7); HEMATOCRIT 28.8 % (42.0-54.0); HEMOGLOBIN 8.7 g/dL (13.5-17.5); IMMATURE GRANULOCYTES 0.3 % (0-5); LYMPHOCYTES 9.1 % (15-50); MCHC 30.2 g/dL (31.0-37.0); MCV 92.6 fL (80.0-100.0); MEAN PLATELET VOLUME 11.4 fL (7.4-10.4); MONOCYTES 8.7 % (2-11); NEUTROPHILS 77.1 % (40-80); PLATELET COUNT 189 10x3/uL (130-400); RBC 3.11 10x6/uL (4.20-6.10); WBC 5.8 10x3/uL (4.8-10.8)
[2017-06-14 08:43] VITALS: BP 182/77
[2017-06-14 13:12] VITALS: BP 126/101
[2017-06-14 17:17] VITALS: BP 149/46
[2017-06-14 17:32] LABS: CKMB 1.7 U/L (0.0-3.6); CREATINE KINASE 34 UL (21-232); PRO BNP 33346 pg/mL (0-450); TROPONIN-I 0.034 ng/mL (0.000-0.060)
[2017-06-14 22:00] VITALS: BP 144/95
[2017-06-14 22:42] LABS: CKMB 1.6 U/L (0.0-3.6); CREATINE KINASE 33 UL (21-232); TROPONIN-I 0.038 ng/mL (0.000-0.060)
[2017-06-15 00:36] VITALS: BP 158/47
[2017-06-15 05:08] LABS: BASOPHILS 0.4 % (0-2); EOSINOPHILS 4.9 % (0-7); HEMATOCRIT 28.7 % (42.0-54.0); HEMOGLOBIN 8.7 g/dL (13.5-17.5); IMMATURE GRANULOCYTES 0.5 % (0-5); LYMPHOCYTES 11.5 % (15-50); MCH 28.1 pg (26.0-34.0); MCHC 30.3 g/dL (31.0-37.0); MCV 92.6 fL (80.0-100.0); MEAN PLATELET VOLUME 11.1 fL (7.4-10.4); MONOCYTES 10.4 % (2-11); NEUTROPHILS 72.3 % (40-80); PLATELET COUNT 202 10x3/uL (130-400); WBC 5.5 10x3/uL (4.8-10.8)
[2017-06-15 05:11] VITALS: BP 157/78
[2017-06-15 05:41] LABS: CALC OSMOLALITY 313 mosm/kg (275-300); CALCIUM 8.9 mg/dL (8.5-10.1); CARBON DIOXIDE 29.8 mmol/L (21.0-32.0); CHLORIDE - SERUM 111 mmol/L (98-107); CKMB 1.4 U/L (0.0-3.6); CREATINE KINASE 33 UL (21-232); CREATININE - SERUM 3.7 mg/dL (0.6-1.3); GLUCOSE 118 mg/dL (74-106); POTASSIUM - SERUM 3.4 mmol/L (3.5-5.1); SODIUM 151 mmol/L (136-145); TROPONIN-I 0.042 ng/mL (0.000-0.060); UREA NITROGEN 49 mg/dL (7-18); URIC ACID 11.4 mg/dL (2.6-7.2); eGFR NON AFRICAN AMERICAN 17 mL/min (90-120)
[2017-06-15 09:19] VITALS: BP 152/84
[2017-06-15 11:59] LABS: APPEARANCE HAZY (CLEAR); BILIRUBIN NEGATIVE (NEGATIVE); COLOR YELLOW (YELLOW); GLUCOSE NEGATIVE (NEGATIVE); KETONE SMALL mg/dL (NEGATIVE); NITRITE NEGATIVE (NEGATIVE); PROTEIN 2+ mg/dL (NEGATIVE); UROBILINOGEN NORMAL (NORMAL)
[2017-06-15 12:02] LABS: RED CELLS - URINE OCC /hpf (0-5); WHITE CELLS - URINE 0-5 /hpf (0-5)
[2017-06-15 12:03] LABS: AMORPHOUS SEDIMENT >1+ /lpf (NONE SEEN); BACTERIA FEW /hpf (NONE SEEN); EPITHELIAL CELLS 0-5 /hpf (0-5); GRANULAR CAST OCC /lpf (NONE SEEN); HYALINE CAST 0-5 /lpf (NONE SEEN)
[2017-06-15 12:08] VITALS: BP 145/94
[2017-06-15 17:07] VITALS: BP 143/81
[2017-06-15 21:08] VITALS: BP 149/69
[2017-06-16 01:27] VITALS: BP 122/60
[2017-06-16 05:40] LABS: BASOPHILS 0.2 % (0-2); EOSINOPHILS 4.3 % (0-7); HEMATOCRIT 29.7 % (42.0-54.0); HEMOGLOBIN 8.9 g/dL (13.5-17.5); IMMATURE GRANULOCYTES 0.3 % (0-5); LYMPHOCYTES 10.2 % (15-50); MCH 27.6 pg (26.0-34.0); MCV 92.2 fL (80.0-100.0); MEAN PLATELET VOLUME 11.2 fL (7.4-10.4); MONOCYTES 8.6 % (2-11); NEUTROPHILS 76.4 % (40-80); PLATELET COUNT 196 10x3/uL (130-400); RBC 3.22 10x6/uL (4.20-6.10); RDW 16.9 % (11.5-14.5); WBC 6.1 10x3/uL (4.8-10.8)
[2017-06-16 06:01] LABS: ANION GAP 12.6 mmol/L (8-16); CALCIUM 8.9 mg/dL (8.5-10.1); CARBON DIOXIDE 27.9 mmol/L (21.0-32.0); CREATININE - SERUM 3.3 mg/dL (0.6-1.3); POTASSIUM - SERUM 3.5 mmol/L (3.5-5.1)
[2017-06-16 06:51] VITALS: BP 139/69
[2017-06-16 08:24] VITALS: BP 152/83
[2017-06-16 12:11] VITALS: BP 121/72
[2017-06-16 17:02] VITALS: BP 127/56
[2017-06-16 21:07] VITALS: BP 143/72
[2017-06-17 00:58] VITALS: BP 174/75
[2017-06-17 05:19] VITALS: BP 131/72
[2017-06-17 05:44] LABS: BASOPHILS 0.3 % (0-2); EOSINOPHILS 4.1 % (0-7); HEMOGLOBIN 8.5 g/dL (13.5-17.5); IMMATURE GRANULOCYTES 0.5 % (0-5); LYMPHOCYTES 11.8 % (15-50); MCHC 30.4 g/dL (31.0-37.0); MCV 92.1 fL (80.0-100.0); MEAN PLATELET VOLUME 11.1 fL (7.4-10.4); MONOCYTES 8.6 % (2-11); NEUTROPHILS 74.7 % (40-80); PLATELET COUNT 189 10x3/uL (130-400); RBC 3.04 10x6/uL (4.20-6.10); RDW 16.9 % (11.5-14.5); WBC 6.6 10x3/uL (4.8-10.8)
[2017-06-17 06:18] LABS: ANION GAP 11.5 mmol/L (8-16); CALCIUM 8.9 mg/dL (8.5-10.1); CARBON DIOXIDE 27.3 mmol/L (21.0-32.0); CREATININE - SERUM 3.3 mg/dL (0.6-1.3); POTASSIUM - SERUM 3.8 mmol/L (3.5-5.1)
[2017-06-17 08:02] VITALS: BP 149/63
[2017-06-17 13:05] VITALS: BP 143/69
[2017-06-17 16:31] VITALS: BP 119/63
[2017-06-17 19:00] VITALS: BP 150/92
[2017-06-18 04:00] VITALS: BP 124/48
[2017-06-18 06:18] LABS: BASOPHILS 0.3 % (0-2); EOSINOPHILS 5.1 % (0-7); HEMATOCRIT 30.2 % (42.0-54.0); HEMOGLOBIN 9.2 g/dL (13.5-17.5); IMMATURE GRANULOCYTES 0.7 % (0-5); LYMPHOCYTES 11.2 % (15-50); MCH 27.9 pg (26.0-34.0); MCHC 30.5 g/dL (31.0-37.0); MCV 91.5 fL (80.0-100.0); MEAN PLATELET VOLUME 11.1 fL (7.4-10.4); NEUTROPHILS 73.7 % (40-80); PLATELET COUNT 180 10x3/uL (130-400); RDW 16.9 % (11.5-14.5); WBC 6.1 10x3/uL (4.8-10.8)
[2017-06-18 06:41] LABS: ANION GAP 10.3 mmol/L (8-16); CARBON DIOXIDE 27.6 mmol/L (21.0-32.0); CREATININE - SERUM 3.2 mg/dL (0.6-1.3); POTASSIUM - SERUM 3.9 mmol/L (3.5-5.1)
[2017-06-18 08:52] VITALS: BP 144/64
[2017-06-18 12:12] VITALS: BP 144/72
[2017-06-18 16:11] VITALS: BP 157/71
[2017-06-18 20:23] VITALS: BP 169/76
[2017-06-19] VITALS: BP 144/69
[2017-06-19 04:00] VITALS: BP 187/83
[2017-06-19 08:00] VITALS: BP 124/82
[2017-06-19 11:41] LABS: BASOPHILS 0.2 % (0-2); EOSINOPHILS 5.6 % (0-7); HEMATOCRIT 31.8 % (42.0-54.0); HEMOGLOBIN 9.6 g/dL (13.5-17.5); IMMATURE GRANULOCYTES 0.8 % (0-5); LYMPHOCYTES 9.8 % (15-50); MCH 27.9 pg (26.0-34.0); MCHC 30.2 g/dL (31.0-37.0); MCV 92.4 fL (80.0-100.0); MEAN PLATELET VOLUME 11.3 fL (7.4-10.4); MONOCYTES 7.4 % (2-11); NEUTROPHILS 76.2 % (40-80); PLATELET COUNT 197 10x3/uL (130-400); RBC 3.44 10x6/uL (4.20-6.10); RDW 16.9 % (11.5-14.5); WBC 6.7 10x3/uL (4.8-10.8)
[2017-06-19 11:53] LABS: ANION GAP 11.2 mmol/L (8-16); CALCIUM 8.9 mg/dL (8.5-10.1); CARBON DIOXIDE 28.6 mmol/L (21.0-32.0); CREATININE - SERUM 3.5 mg/dL (0.6-1.3); POTASSIUM - SERUM 3.8 mmol/L (3.5-5.1)
[2017-06-19 13:16] VITALS: BP 137/73
[2017-06-19 17:32] VITALS: BP 157/73
[2017-06-20] VITALS: BP 181/87
[2017-06-20 06:38] LABS: BASOPHILS 0.4 % (0-2); EOSINOPHILS 6.3 % (0-7); HEMATOCRIT 28.8 % (42.0-54.0); HEMOGLOBIN 8.8 g/dL (13.5-17.5); IMMATURE GRANULOCYTES 0.5 % (0-5); LYMPHOCYTES 14.5 % (15-50); MCH 27.8 pg (26.0-34.0); MCHC 30.6 g/dL (31.0-37.0); MCV 91.1 fL (80.0-100.0); MEAN PLATELET VOLUME 11.6 fL (7.4-10.4); MONOCYTES 8.4 % (2-11); NEUTROPHILS 69.9 % (40-80); PLATELET COUNT 197 10x3/uL (130-400); RBC 3.16 10x6/uL (4.20-6.10); WBC 5.7 10x3/uL (4.8-10.8)
[2017-06-20 06:42] LABS: ANION GAP 9.8 mmol/L (8-16); CALCIUM 8.6 mg/dL (8.5-10.1); CARBON DIOXIDE 28.7 mmol/L (21.0-32.0); CREATININE - SERUM 3.5 mg/dL (0.6-1.3); POTASSIUM - SERUM 3.5 mmol/L (3.5-5.1)
[2017-06-20 08:51] VITALS: BP 148/74
[2017-06-20 12:30] VITALS: BP 149/80
[2017-06-20 20:00] VITALS: BP 147/66
[2017-06-21] VITALS: BP 146/71
[2017-06-21 04:00] VITALS: BP 156/70
[2017-06-21 05:59] LABS: BASOPHILS 0.4 % (0-2); EOSINOPHILS 6.1 % (0-7); HEMATOCRIT 30.8 % (42.0-54.0); HEMOGLOBIN 9.3 g/dL (13.5-17.5); IMMATURE GRANULOCYTES 0.6 % (0-5); LYMPHOCYTES 16.3 % (15-50); MCH 27.8 pg (26.0-34.0); MCHC 30.2 g/dL (31.0-37.0); MCV 91.9 fL (80.0-100.0); MEAN PLATELET VOLUME 10.7 fL (7.4-10.4); MONOCYTES 9.3 % (2-11); NEUTROPHILS 67.3 % (40-80); PLATELET COUNT 197 10x3/uL (130-400); RBC 3.35 10x6/uL (4.20-6.10); WBC 5.4 10x3/uL (4.8-10.8)
[2017-06-21 06:14] LABS: CALCIUM 8.6 mg/dL (8.5-10.1); CARBON DIOXIDE 31.5 mmol/L (21.0-32.0); CREATININE - SERUM 3.5 mg/dL (0.6-1.3); POTASSIUM - SERUM 3.5 mmol/L (3.5-5.1)
[2017-06-21 08:32] VITALS: BP 168/84
[2017-06-21 12:05] VITALS: BP 175/93
[2017-06-21 20:00] VITALS: BP 140/61
[2017-06-22] VITALS: BP 142/61
[2017-06-22 04:00] VITALS: BP 159/79
[2017-06-22 06:46] LABS: BASOPHILS 0.3 % (0-2); EOSINOPHILS 6.1 % (0-7); HEMATOCRIT 32.1 % (42.0-54.0); HEMOGLOBIN 9.8 g/dL (13.5-17.5); IMMATURE GRANULOCYTES 0.5 % (0-5); MCH 27.8 pg (26.0-34.0); MCHC 30.5 g/dL (31.0-37.0); MCV 90.9 fL (80.0-100.0); MONOCYTES 8.5 % (2-11); NEUTROPHILS 68.6 % (40-80); PLATELET COUNT 218 10x3/uL (130-400); RBC 3.53 10x6/uL (4.20-6.10); RDW 17.4 % (11.5-14.5); WBC 6.4 10x3/uL (4.8-10.8)
[2017-06-22 07:11] LABS: ANION GAP 11.3 mmol/L (8-16); CALCIUM 8.7 mg/dL (8.5-10.1); CARBON DIOXIDE 28.7 mmol/L (21.0-32.0); CREATININE - SERUM 3.2 mg/dL (0.6-1.3)
[2017-06-22 07:51] VITALS: BP 162/86
[2017-06-22 11:12] VITALS: BP 135/43
[2017-06-22 15:28] VITALS: BP 156/90
[2017-06-22 19:00] VITALS: BP 197/86
[2017-06-23] VITALS: BP 177/87
[2017-06-23 04:00] VITALS: BP 196/89
[2017-06-23 05:02] LABS: BASOPHILS 0.3 % (0-2); EOSINOPHILS 5.6 % (0-7); HEMATOCRIT 31.6 % (42.0-54.0); HEMOGLOBIN 9.7 g/dL (13.5-17.5); IMMATURE GRANULOCYTES 0.5 % (0-5); LYMPHOCYTES 12.2 % (15-50); MCHC 30.7 g/dL (31.0-37.0); MCV 91.3 fL (80.0-100.0); MEAN PLATELET VOLUME 11.3 fL (7.4-10.4); MONOCYTES 10.2 % (2-11); NEUTROPHILS 71.2 % (40-80); PLATELET COUNT 216 10x3/uL (130-400); RBC 3.46 10x6/uL (4.20-6.10); RDW 17.5 % (11.5-14.5); WBC 6.3 10x3/uL (4.8-10.8)
[2017-06-23 05:16] LABS: CALCIUM 8.6 mg/dL (8.5-10.1); CARBON DIOXIDE 30.1 mmol/L (21.0-32.0); CREATININE - SERUM 3.1 mg/dL (0.6-1.3); POTASSIUM - SERUM 3.1 mmol/L (3.5-5.1)
[2017-06-23 07:35] VITALS: BP 136/87
[2017-06-23 11:55] VITALS: BP 164/76
[2017-06-23 15:09] VITALS: BP 137/65
[2017-06-23 20:36] VITALS: BP 142/72
[2017-06-24 01:20] VITALS: BP 150/72
[2017-06-24 05:31] VITALS: BP 149/82
[2017-06-24 06:47] LABS: BASOPHILS 0.3 % (0-2); HEMOGLOBIN 9.6 g/dL (13.5-17.5); IMMATURE GRANULOCYTES 0.3 % (0-5); LYMPHOCYTES 14.3 % (15-50); MCH 27.7 pg (26.0-34.0); MCV 92.2 fL (80.0-100.0); MEAN PLATELET VOLUME 11.6 fL (7.4-10.4); NEUTROPHILS 68.1 % (40-80); PLATELET COUNT 209 10x3/uL (130-400); RBC 3.47 10x6/uL (4.20-6.10); RDW 17.4 % (11.5-14.5); WBC 6.3 10x3/uL (4.8-10.8)
[2017-06-24 06:55] LABS: ANION GAP 10.5 mmol/L (8-16); CALCIUM 8.6 mg/dL (8.5-10.1); CARBON DIOXIDE 30.1 mmol/L (21.0-32.0); CREATININE - SERUM 2.9 mg/dL (0.6-1.3); POTASSIUM - SERUM 3.6 mmol/L (3.5-5.1)
[2017-06-24 08:04] VITALS: BP 139/75
[2017-06-24 13:22] VITALS: BP 156/81
[2017-06-24 15:45] VITALS: BP 142/78
[2017-06-24 19:00] VITALS: BP 167/79
[2017-06-25 04:00] VITALS: BP 179/88
[2017-06-25 05:11] LABS: BASOPHILS 0.3 % (0-2); EOSINOPHILS 6.3 % (0-7); HEMATOCRIT 31.5 % (42.0-54.0); HEMOGLOBIN 9.5 g/dL (13.5-17.5); IMMATURE GRANULOCYTES 0.2 % (0-5); LYMPHOCYTES 15.2 % (15-50); MCH 27.7 pg (26.0-34.0); MCHC 30.2 g/dL (31.0-37.0); MCV 91.8 fL (80.0-100.0); MEAN PLATELET VOLUME 11.3 fL (7.4-10.4); MONOCYTES 8.4 % (2-11); NEUTROPHILS 69.6 % (40-80); PLATELET COUNT 210 10x3/uL (130-400); RBC 3.43 10x6/uL (4.20-6.10); RDW 17.3 % (11.5-14.5); WBC 6.3 10x3/uL (4.8-10.8)
[2017-06-25 05:34] LABS: ANION GAP 13.1 mmol/L (8-16); CALCIUM 8.7 mg/dL (8.5-10.1); CARBON DIOXIDE 28.9 mmol/L (21.0-32.0); MAGNESIUM - SERUM 2.1 mg/dL (1.8-2.4); PHOSPHOROUS 3.4 mg/dL (2.5-4.9)
[2017-06-25 08:31] VITALS: BP 169/73
[2017-06-25 12:00] VITALS: BP 150/74
[2017-06-25 19:00] VITALS: BP 148/70
[2017-06-26 04:00] VITALS: BP 155/63
[2017-06-26 06:05] LABS: BASOPHILS 0.3 % (0-2); EOSINOPHILS 4.9 % (0-7); HEMATOCRIT 32.7 % (42.0-54.0); IMMATURE GRANULOCYTES 0.3 % (0-5); LYMPHOCYTES 12.3 % (15-50); MCH 28.2 pg (26.0-34.0); MCHC 30.6 g/dL (31.0-37.0); MCV 92.1 fL (80.0-100.0); MEAN PLATELET VOLUME 11.2 fL (7.4-10.4); MONOCYTES 8.9 % (2-11); NEUTROPHILS 73.3 % (40-80); PLATELET COUNT 208 10x3/uL (130-400); RBC 3.55 10x6/uL (4.20-6.10); RDW 17.1 % (11.5-14.5); WBC 6.8 10x3/uL (4.8-10.8)
[2017-06-26 06:28] LABS: ALBUMIN 2.3 g/dL (3.4-5.0); ANION GAP 13.9 mmol/L (8-16); BILIRUBIN - TOTAL 0.5 mg/dL (0.2-1.3); CALCIUM 8.9 mg/dL (8.5-10.1); CARBON DIOXIDE 28.9 mmol/L (21.0-32.0); POTASSIUM - SERUM 3.8 mmol/L (3.5-5.1); PROTEIN - SERUM 6.2 g/dL (6.4-8.2)
[2017-06-26 08:11] VITALS: BP 148/76
[2017-06-26 12:29] VITALS: BP 156/83
[2017-06-26 16:11] VITALS: BP 160/78
[2017-06-27 04:30] VITALS: BP 143/71
[2017-06-27 06:26] LABS: BASOPHILS 0.5 % (0-2); EOSINOPHILS 6.3 % (0-7); HEMOGLOBIN 9.8 g/dL (13.5-17.5); IMMATURE GRANULOCYTES 0.3 % (0-5); MCH 28.1 pg (26.0-34.0); MCHC 30.6 g/dL (31.0-37.0); MCV 91.7 fL (80.0-100.0); MEAN PLATELET VOLUME 10.9 fL (7.4-10.4); MONOCYTES 8.2 % (2-11); NEUTROPHILS 69.7 % (40-80); PLATELET COUNT 208 10x3/uL (130-400); RBC 3.49 10x6/uL (4.20-6.10); RDW 17.2 % (11.5-14.5)
[2017-06-27 06:46] LABS: ALBUMIN 2.3 g/dL (3.4-5.0); ANION GAP 12.3 mmol/L (8-16); BILIRUBIN - TOTAL 0.6 mg/dL (0.2-1.3); CALCIUM 9.1 mg/dL (8.5-10.1); CARBON DIOXIDE 30.4 mmol/L (21.0-32.0); POTASSIUM - SERUM 3.7 mmol/L (3.5-5.1); PROTEIN - SERUM 6.2 g/dL (6.4-8.2)
[2017-06-27 07:56] VITALS: BP 162/80
[2017-06-27 12:02] VITALS: BP 172/84
[2017-06-27 16:04] VITALS: BP 158/96
[2017-06-27 20:51] VITALS: BP 149/84
[2017-06-28 00:29] VITALS: BP 144/73
[2017-06-28 04:17] VITALS: BP 150/74
[2017-06-28 04:48] LABS: BASOPHILS 0.2 % (0-2); HEMATOCRIT 32.1 % (42.0-54.0); HEMOGLOBIN 9.8 g/dL (13.5-17.5); IMMATURE GRANULOCYTES 0.2 % (0-5); LYMPHOCYTES 15.4 % (15-50); MCH 27.7 pg (26.0-34.0); MCHC 30.5 g/dL (31.0-37.0); MCV 90.7 fL (80.0-100.0); MEAN PLATELET VOLUME 11.3 fL (7.4-10.4); MONOCYTES 9.2 % (2-11); PLATELET COUNT 214 10x3/uL (130-400); RBC 3.54 10x6/uL (4.20-6.10); RDW 16.5 % (11.5-14.5); WBC 6.5 10x3/uL (4.8-10.8)
[2017-06-28 05:42] LABS: ALBUMIN 2.4 g/dL (3.4-5.0); ANION GAP 14.2 mmol/L (8-16); CALCIUM 9.1 mg/dL (8.5-10.1); CARBON DIOXIDE 30.4 mmol/L (21.0-32.0); CREATININE - SERUM 2.8 mg/dL (0.6-1.3); POTASSIUM - SERUM 3.6 mmol/L (3.5-5.1)
[2017-06-28 06:18] LABS: BILIRUBIN - TOTAL 0.56 mg/dL (0.2-1.3); PROTEIN - SERUM 6.3 g/dL (6.4-8.2)
[2017-06-28 08:00] VITALS: BP 153/84
[2017-06-28 12:00] VITALS: BP 157/81
== END 2017-06-28 15:21 | disposition home health service (06) | DRG 291 ==
LOC: D.ER 14:15 → D.M2 16:01
PROVIDERS: Emergency Medicine; Family Medicine; Internal Medicine; Internal Medicine Nephrology
PROC: 0T9B70Z Drainage of Bladder with Drainage Device, Via Natural or Artificial Opening (ICD-10-PCS; principal; 2017-06-15)
DX: I13.0 Hypertensive heart and chronic kidney disease with heart failure and stage 1 through stage 4 chronic kidney disease, or unspecified chronic kidney disease (principal); I50.23 Acute on chronic systolic (congestive) heart failure; J96.21 Acute and chronic respiratory failure with hypoxia; J18.9 Pneumonia, unspecified organism; N17.0 Acute kidney failure with tubular necrosis; J44.1 Chronic obstructive pulmonary disease with (acute) exacerbation; J44.0 Chronic obstructive pulmonary disease with (acute) lower respiratory infection; D62 Acute posthemorrhagic anemia; A04.72 Enterocolitis due to Clostridium difficile, not specified as recurrent; J98.11 Atelectasis; E87.0 Hyperosmolality and hypernatremia; N18.3 Chronic kidney disease, stage 3 (moderate); E11.22 Type 2 diabetes mellitus with diabetic chronic kidney disease; E11.65 Type 2 diabetes mellitus with hyperglycemia; E78.5 Hyperlipidemia, unspecified; I25.10 Atherosclerotic heart disease of native coronary artery without angina pectoris; I73.9 Peripheral vascular disease, unspecified; K21.9 Gastro-esophageal reflux disease without esophagitis; D63.1 Anemia in chronic kidney disease; D50.9 Iron deficiency anemia, unspecified; I27.20 Pulmonary hypertension, unspecified; I08.1 Rheumatic disorders of both mitral and tricuspid valves; E87.5 Hyperkalemia; E86.0 Dehydration; M25.561 Pain in right knee; Z86.718 Personal history of other venous thrombosis and embolism

== ENCOUNTER 2017-10-19 22:27 | Emergency (ER) | payer MEDICARE ==
[2017-06-13 14:06] VITALS: BMI 27.9
[~2017-10-19 22:27] MED LIST changes: +FERROUS SULFAT325 MG PO
== END 2017-10-20 00:19 | disposition home or self-care (01) ==
LOC: D.ER 22:27
DX: S09.90XA Unspecified injury of head, initial encounter (principal); W10.9XXA Fall (on) (from) unspecified stairs and steps, initial encounter; Y93.89 Activity, other specified; Y92.019 Unspecified place in single-family (private) house as the place of occurrence of the external cause; M54.2 Cervicalgia; I50.9 Heart failure, unspecified; E11.9 Type 2 diabetes mellitus without complications; I12.9 Hypertensive chronic kidney disease with stage 1 through stage 4 chronic kidney disease, or unspecified chronic kidney disease; N18.9 Chronic kidney disease, unspecified

== ENCOUNTER 2018-02-20 07:54 | Inpatient (IN) | payer MEDICARE ==
[~2018-02-20] VITALS: Ht 180.3 cm; Wt 66.5 kg
[2018-02-20] VITALS (9 sets, daily range): BP systolic 79–174; BP diastolic 48–92; BMI 21.8
--- NOTE | ~2018-02-20 | CN ---
PATIENT NAME:MRAIAMA ZUÑIGA MEDICAL RECORD: [id number] : 40 LOCATION:. D.2131 ADMIT DATE: 02/20/18 ACCOUNT: [id number] CONSULTING PHYSICIAN: JAYSHREE FRYE REFERRING PHYSICIAN: MELODY FUNES MD DATE OF CONSULTATION: 02/20/2018 HISTORY OF PRESENT ILLNESS: This is a 77-year-old male who has had a history of coronary artery disease with several stents and coronary artery bypass surgery. The patient is currently retired. He has also had congestive heart failure. The patient has been doing well in the last several days. He is having shortness of breath, orthopnea. He also experienced some palpitation and left chest pain. The patient was seen in the Emergency Room and admission was advised. PAST MEDICAL HISTORY: Remarkable for hypertension, congestive heart failure. PAST SURGICAL HISTORY: Includes multiple stents and coronary artery bypass graft surgery as well as had acid reflux. ALLERGIES: INCLUDE PENICILLIN. MEDICATIONS: On admission, Protonix 40 mg daily, Plavix 75 mg daily, acidophilus 460 mg daily, sucralfate 1 gram a.c. and at bedtime, Bumex 2 mg daily. Other medical problems include chronic renal failure. FAMILY HISTORY: Unknown. SOCIAL HISTORY: The patient is and lives with . Does not drink or use recreational drugs. The patient smoked, but quit about 40-50 years ago. REVIEW OF SYSTEMS: CONSTITUTIONAL: The patient denies any fever, chills, or weight loss. He has been weak. HEENT: The patient denies any headache, nasal drainage or sore throat. CARDIOPULMONARY: The patient sleeps in a recliner. GASTROINTESTINAL: There is no nausea, vomiting, abdominal pain. GENITOURINARY: There is no frequency, dysuria. MUSCULOSKELETAL: The patient denies any leg pain or edema. PHYSICAL EXAMINATION: GENERAL: Reveals an elderly man who is in no acute distress, feels better since admission. VITAL SIGNS: Temperature 98.8, heart rate 109, respiratory rate 16, blood pressure 174/76, saturation 96%. HEENT: Unremarkable. Pupils equal and reactive. Nares and oral cavity are normal. NECK: Supple. Trachea is midline. CHEST: Clear. There is decreased muscle mass, but there are no crackles or wheezes. HEART: Shows no jugular venous distention, murmur or gallops. ABDOMEN: Benign. EXTREMITIES: There is no clubbing, cyanosis or edema. CONSULT REPORT [id number] MARIAMA ZUÑIGA LABORATORY DATA: CBC showed white count 6.1, hemoglobin 11.3 and platelet count is 163,000. Chemistry is remarkable for potassium of 3.5, creatinine is 3.0, BUN is 70. Glucose 182. BNP is 32,436. Troponin I is 0.037. Albumin is 3.1. Lung V/Q scan showed low probability for PE. Chest x-ray shows patchy opacities in the lung bases, could be atelectasis or pneumonia. IMPRESSION: 1. Basilar pneumonia. The patient has no fever or chills. White count is within normal limits. We will wait for cultures and treat with antibiotics empirically. 2. Ischemic cardiomyopathy with congestive heart failure with elevated BNP. We will assess cardiac function on the echocardiogram. 3. Presumed chronic obstructive pulmonary disease. 4. Chronic renal failure stage IV. PLAN: 1. Bronchodilators. 2. Empiric antibiotics pending cultures. 3. DVT prophylaxis with heparin. 4. Echocardiogram to assess cardiac function. 5. Sliding scale insulin for hyperglycemia. Time spent is 60 minutes. TRANSINT:[id number] Voice Confirmation ID: [id number] DOCUMENT ID: [id number] JAYSHREE FRYE at 1059 CC: [id number] DICTATION DATE: 02/20/181918 BLOOD COORDINATOR: 02/21/18 0551 ADM IN [facility] [address] [place] [address]
--- NOTE | ~2018-02-20 | PN ---
PATIENT:MARIAMA ZUÑIGA MEDICAL RECORD: [id number] LOCATION:D.M2 D.213 ADMISSION DATE: 02/20/18 PROGRESS NOTE DATE OF SERVICE: 02/21/2018 SUBJECTIVE: This is a 77-year-old man who has had a history of ischemic cardiomyopathy. He has also had a history of atrial fibrillation and congestive heart failure as well as chronic obstructive pulmonary disease. The patient began to have increasing shortness of breath, orthopnea. The patient also had swelling in both lower extremities as well as upper extremities. He was seen in the Emergency Room. Chest x-ray showed cardiomegaly and congestion suggestive of chronic congestive heart failure. The patient was admitted. He was started on IV Lasix as well as bronchodilators. The patient had left basilar pneumonia as well and was given antibiotics. The patient feels improved today. There is no coughing. There is no fever or chills. PHYSICAL EXAMINATION: GENERAL: Reveals elderly man who is in no acute distress. VITAL SIGNS: Temperature 98.8, heart rate of 92, respiratory rate of 17, blood pressure 144/91. HEENT: Unremarkable. NECK: Supple. CHEST: Some mild left crackles. CARDIAC: Shows no jugular venous distention, murmur, or gallops. ABDOMEN: Benign, without any tenderness. EXTREMITIES: No clubbing, cyanosis or edema. LABORATORY DATA: Showed white count 6.0, hemoglobin 11.1, platelet count is 166,000. Chemistry is remarkable for sodium of 140, potassium of 3.6. Troponin I is 0.017. Chest x-ray showed improvement in left basilar airspace disease, otherwise unchanged. ASSESSMENT: 1. Pneumonia. 2. Congestive heart failure. 3. Chronic renal failure stage IV. PLAN: 1. Continue antibiotics. 2. Monitor creatinine and renal function. This appears to be stable. 3. Deep venous thrombosis prophylaxis. TRANSINT:[id number] Voice Confirmation ID: [id number] DOCUMENT ID: [id number] PROGRESS NOTE [id number] MARIAMA ZUÑIGA JAYSHREE FRYE at 1019 CC: [id number] DICTATION DATE: 02/21/18 1558 METAL FURNITURE ASSEMBLER: 02/21/18 1706 ADM IN [place] [id number] [place] [address]
--- NOTE | ~2018-02-20 | PN ---
PATIENT:MARIAMA ZUÑIGA MEDICAL RECORD: [id number] LOCATION:D.M2 D.213 ADMISSION DATE: 02/20/18 PROGRESS NOTE DATE OF SERVICE: 02/22/2018 SUBJECTIVE: This is a 77-year-old male who was admitted through the Emergency Room for increasing shortness of breath. He was found to have paroxysmal atrial fibrillation with rapid ventricular response and also chronic kidney disease, hypertension, and coronary artery disease. The patient's breathing is slightly improved. There is no orthopnea or PND. There is no fever or chills but has pneumonia, which is improving. OBJECTIVE: GENERAL: Physical exam reveals an elderly man who is in no acute distress. VITAL SIGNS: Temperature 96.8, heart rate of 85, respiratory rate 16, blood pressure 158/85, saturation 95%. SHEENT: Unremarkable. The patient is normocephalic. Nares are clear. There is no obstruction, there is no redness. NECK: Supple. There is no adenopathy. Trachea is midline. No thyromegaly and no tenderness. CHEST: Exam shows some bibasilar crackles and coughing. CARDIAC: Exam shows no jugular venous distention, no murmur or gallops. ABDOMEN: Exam shows no tenderness, no distention, no masses. EXTREMITIES: No clubbing, cyanosis or edema. LABORATORY DATA: White count 5.3, hemoglobin 10.5, and platelet count is 152,000. Chemistry is remarkable for creatinine of 3.2, BUN 72. Glucose is 201. Chest x-ray showed improving basilar infiltrates. ASSESSMENT: 1. Pneumonia. 2. Coronary artery disease. 3. Chronic atrial fibrillation, rate controlled, was started on anticoagulation. 4. Chronic kidney disease, stage IV. PLAN: 1. Follow up chest x-ray and pneumonia. 2. Continue antibiotics. 3. Bronchodilators. 4. Systemic steroids. 5. DVT prophylaxis with heparin. TRANSINT:[id number] Voice Confirmation ID: [id number] DOCUMENT ID: [id number] PROGRESS NOTE [id number] MARIAMA ZUÑIGA JAYSHREE FRYE at 0942 CC: [id number] DICTATION DATE: 02/22/18 1458 DIRECTOR OF RELIGIOUS ACTIVITIES: 02/22/18 1194 [place] [address]
--- NOTE | ~2018-02-20 | EC ---
PATIENT:MARIAMA ZUÑIGA DATE OF SERVICE: 02/20/18 SEX: M MEDICAL RECORD: [id number] DATE OF : 40 LOCATION:D.M2 D.213 AGE OF PATIENT: 77 ADMISSION DATE: 02/20/18 REFERRING PHYSICIAN: INTERPRETING PHYSICIAN: DAREN MACDONALD MD ECHOCARDIOGRAM REPORT ECHO CHARGES 4 ECHO COMPLETE Date: 02/21 CLINICAL DIAGNOSIS: CHF ECHOCARDIOGRAPHIC MEASUREMENTS (adult normal given) AC root (d.<3.7cm) 3.6 cm LV Septum d (<1.2 cm> 1.5 cm Valve Excursion 2.1 cm LV Septum (systole) 2.2 cm Left Atria (s.<4.0cm> 5.3 cm LVPW d(<1.2cm) 1.4 cm RV (d.<2.3cm) 2.8 cm LVPW (sytole) 1.8 cm LV diastole(<5.6CM) 6.0 cm MV E-F(>70mm/sec) cm LV systole 4.3 cm LVOT Diameter 2.0 cm MV exc.(>10mm) cm Est.ejection fraction (50-75%) % DOPPLER: LVIT cm/sec A cm/sec E 120 cm/sec LA cm/sec RVSP 89.2 mmHg LVOT 69.0 cm/sec AOP1/2T m/s Asc. Ao 155 cm/sec RVOT 59.0 cm/sec RA cm/sec PA 69.0 cm/sec AV Gradient Peak 9.6 mmHg AV Mean 4.8 mmHg AV Area 1.2 cm MV Gradient Peak 8.9 mmHg MV Mean 3.8 mmHg MV Area cm COMMENTS: Armed Security Professional: Sharath BLACKWELLOE Stem Teacher: 1 Dr. Macdonald TAPE# PACS Pericardial Effusion N DATE OF SERVICE: 02/21/2018 FINDINGS: 1. Left ventricular chamber size is mildly dilated. Left ventricular systolic function is moderately reduced. Overall ejection fraction is 30%. 2. Left atrium is dilated at 5.3 cm. Right atrium and right ventricular chamber sizes are as well moderately dilated. 3. Valvular structures have normal structure and motion. 4. Doppler interrogation reveals rlvidlsv-lv-utllab mitral regurgitation and jwcnciyu-xi-xukxbr tricuspid regurgitation. No other valvular insufficiency or ECHOCARDIOGRAM REPORT [id number] MARIAMA ZUÑIGA stenosis; however, pulmonary systolic pressure is markedly elevated, estimated at 89 mmHg. 5. No evidence of pericardial effusion or left ventricular thrombus. TRANSINT:[id number] Voice Confirmation ID: [id number] DOCUMENT ID: [id number] DAREN MACDONALD MD at 1806 CC: [id number] DICTATION DATE: 02/24/18 1459 SUPPORT ENGINEER: 02/24/18 1526 ADM IN [place] [id number] [place] [address]
[2018-02-20 08:20] LABS: BASOPHILS 0.3 % (0-2); EOSINOPHILS 3.3 % (0-7); HEMATOCRIT 34.4 % (42.0-54.0); HEMOGLOBIN 11.3 g/dL (13.5-17.5); IMMATURE GRANULOCYTES 0.2 % (0-5); MCH 31.6 pg (26.0-34.0); MCHC 32.8 g/dL (31.0-37.0); MCV 96.1 fL (80.0-100.0); MEAN PLATELET VOLUME 11.1 fL (7.4-10.4); MONOCYTES 8.6 % (2-11); NEUTROPHILS 73.6 % (40-80); RBC 3.58 10x6/uL (4.20-6.10); RDW 15.1 % (11.5-14.5); WBC 6.1 10x3/uL (4.8-10.8)
[2018-02-20 08:24] LABS: PLATELET COUNT 163 10x3/uL (130-400)
[2018-02-20 08:34] LABS: ALBUMIN 3.1 g/dL (3.4-5.0); ANION GAP 10.6 mmol/L (8-16); BILIRUBIN - TOTAL 1.55 mg/dL (0.2-1.3); CALCIUM 8.8 mg/dL (8.5-10.1); CARBON DIOXIDE 27.9 mmol/L (21.0-32.0); POTASSIUM - SERUM 3.5 mmol/L (3.5-5.1); PROTEIN - SERUM 7.1 g/dL (6.4-8.2)
[2018-02-20 08:46] LABS: CKMB 1.5 U/L (0.0-3.6); TROPONIN-I 0.037 ng/mL (0.000-0.060)
[2018-02-20 16:36] LABS: CKMB 1.5 U/L (0.0-3.6); CREATINE KINASE 32 UL (21-232); TROPONIN-I 0.032 ng/mL (0.000-0.060)
[2018-02-20] MEDS ORDERED: CYMBALTA30 MG PO (19:10)
[2018-02-20] MEDS ORDERED: VITAMIN B COMPL1 TAB PO (19:10)
[2018-02-20] MEDS ORDERED: VITAMIN D31000 UNI2 PO (19:11)
[2018-02-20 21:29] LABS: CKMB 1.3 U/L (0.0-3.6); CREATINE KINASE 33 UL (21-232)
[2018-02-21] VITALS (7 sets, daily range): BP systolic 135–155; BP diastolic 54–91; BMI 20.1
[2018-02-21 04:20] LABS: BASOPHILS 0.3 % (0-2); EOSINOPHILS 2.7 % (0-7); HEMATOCRIT 33.4 % (42.0-54.0); HEMOGLOBIN 11.1 g/dL (13.5-17.5); LYMPHOCYTES 11.3 % (15-50); MCH 31.5 pg (26.0-34.0); MCHC 33.2 g/dL (31.0-37.0); MCV 94.9 fL (80.0-100.0); MEAN PLATELET VOLUME 11.6 fL (7.4-10.4); MONOCYTES 10.1 % (2-11); NEUTROPHILS 75.6 % (40-80); PLATELET COUNT 166 10x3/uL (130-400); RBC 3.52 10x6/uL (4.20-6.10)
[2018-02-21 04:56] LABS: ALBUMIN 2.9 g/dL (3.4-5.0); ALKALINE PHOSPHATASE 101 U/L (46-116); BILIRUBIN - TOTAL 1.93 mg/dL (0.2-1.3); CALC OSMOLALITY 302 mosm/kg (275-300); CALCIUM 8.8 mg/dL (8.5-10.1); CARBON DIOXIDE 27.2 mmol/L (21.0-32.0); CHLORIDE - SERUM 105 mmol/L (98-107); CKMB 1.2 U/L (0.0-3.6); CREATINE KINASE 36 UL (21-232); GLUCOSE 162 mg/dL (74-106); PHOSPHOROUS 3.6 mg/dL (2.5-4.9); POTASSIUM - SERUM 3.6 mmol/L (3.5-5.1); PROTEIN - SERUM 6.6 g/dL (6.4-8.2); SODIUM 140 mmol/L (136-145); TROPONIN-I 0.037 ng/mL (0.000-0.060); UREA NITROGEN 68 mg/dL (7-18); eGFR NON AFRICAN AMERICAN 22 mL/min (90-120)
[2018-02-21 05:03] LABS: ALT (SGPT) 9 U/L (10-68)
[2018-02-22 05:23] LABS: BASOPHILS 0.4 % (0-2); EOSINOPHILS 3.6 % (0-7); HEMATOCRIT 32.2 % (42.0-54.0); HEMOGLOBIN 10.7 g/dL (13.5-17.5); IMMATURE GRANULOCYTES 0.2 % (0-5); LYMPHOCYTES 18.7 % (15-50); MCH 31.8 pg (26.0-34.0); MCHC 33.2 g/dL (31.0-37.0); MCV 95.5 fL (80.0-100.0); MEAN PLATELET VOLUME 11.1 fL (7.4-10.4); MONOCYTES 9.5 % (2-11); NEUTROPHILS 67.6 % (40-80); PLATELET COUNT 152 10x3/uL (130-400); RBC 3.37 10x6/uL (4.20-6.10); WBC 5.3 10x3/uL (4.8-10.8)
[2018-02-22 05:51] LABS: ALBUMIN 2.8 g/dL (3.4-5.0); ANION GAP 11.1 mmol/L (8-16); BILIRUBIN - TOTAL 1.58 mg/dL (0.2-1.3); CALCIUM 8.7 mg/dL (8.5-10.1); CARBON DIOXIDE 27.7 mmol/L (21.0-32.0); CREATININE - SERUM 3.2 mg/dL (0.6-1.3); MAGNESIUM - SERUM 2.1 mg/dL (1.8-2.4); PHOSPHOROUS 3.7 mg/dL (2.5-4.9); POTASSIUM - SERUM 3.8 mmol/L (3.5-5.1); PROTEIN - SERUM 6.5 g/dL (6.4-8.2)
[2018-02-22 06:30] VITALS: BP 172/68
[2018-02-22 09:15] VITALS: BP 178/85
[2018-02-22 20:27] VITALS: BP 175/83
[2018-02-23 01:10] VITALS: BP 164/99
[2018-02-23 05:47] VITALS: BP 168/67
[2018-02-23 06:23] LABS: BASOPHILS 0.5 % (0-2); EOSINOPHILS 5.3 % (0-7); HEMATOCRIT 33.4 % (42.0-54.0); HEMOGLOBIN 11.1 g/dL (13.5-17.5); IMMATURE GRANULOCYTES 0.2 % (0-5); LYMPHOCYTES 15.8 % (15-50); MCH 31.8 pg (26.0-34.0); MCHC 33.2 g/dL (31.0-37.0); MCV 95.7 fL (80.0-100.0); MEAN PLATELET VOLUME 11.6 fL (7.4-10.4); MONOCYTES 10.4 % (2-11); NEUTROPHILS 67.8 % (40-80); PLATELET COUNT 166 10x3/uL (130-400); RBC 3.49 10x6/uL (4.20-6.10); RDW 15.1 % (11.5-14.5); WBC 5.7 10x3/uL (4.8-10.8)
[2018-02-23 07:11] LABS: ALBUMIN 2.9 g/dL (3.4-5.0); BILIRUBIN - TOTAL 0.91 mg/dL (0.2-1.3); CALCIUM 8.8 mg/dL (8.5-10.1); CARBON DIOXIDE 25.9 mmol/L (21.0-32.0); CREATININE - SERUM 3.4 mg/dL (0.6-1.3); DIGOXIN 0.92 ng/mL (0.90-2.00); MAGNESIUM - SERUM 2.1 mg/dL (1.8-2.4); PHOSPHOROUS 3.7 mg/dL (2.5-4.9); POTASSIUM - SERUM 3.9 mmol/L (3.5-5.1); PROTEIN - SERUM 6.6 g/dL (6.4-8.2)
[2018-02-23 08:51] VITALS: BP 118/76
[2018-02-23 12:20] VITALS: BP 179/67
[2018-02-23 16:55] VITALS: BP 160/67
[2018-02-23 20:00] VITALS: BP 166/67
[2018-02-24] VITALS: BP 148/91
[2018-02-24 04:00] VITALS: BP 134/64; BP 181/75
[2018-02-24 04:35] LABS: BASOPHILS 0.3 % (0-2); EOSINOPHILS 6.4 % (0-7); HEMATOCRIT 34.7 % (42.0-54.0); HEMOGLOBIN 11.5 g/dL (13.5-17.5); IMMATURE GRANULOCYTES 0.2 % (0-5); LYMPHOCYTES 13.6 % (15-50); MCH 31.9 pg (26.0-34.0); MCHC 33.1 g/dL (31.0-37.0); MCV 96.1 fL (80.0-100.0); MEAN PLATELET VOLUME 11.3 fL (7.4-10.4); MONOCYTES 9.6 % (2-11); NEUTROPHILS 69.9 % (40-80); PLATELET COUNT 177 10x3/uL (130-400); RBC 3.61 10x6/uL (4.20-6.10); RDW 15.1 % (11.5-14.5)
[2018-02-24 05:29] LABS: ALBUMIN 2.9 g/dL (3.4-5.0); ANION GAP 12.3 mmol/L (8-16); BILIRUBIN - TOTAL 0.71 mg/dL (0.2-1.3); CALCIUM 8.7 mg/dL (8.5-10.1); CREATININE - SERUM 3.3 mg/dL (0.6-1.3); MAGNESIUM - SERUM 2.2 mg/dL (1.8-2.4); PHOSPHOROUS 4.3 mg/dL (2.5-4.9); POTASSIUM - SERUM 4.3 mmol/L (3.5-5.1); PROTEIN - SERUM 6.8 g/dL (6.4-8.2)
[2018-02-24 07:57] VITALS: BP 194/80
[2018-02-24 08:00] VITALS: BP 155/77
[2018-02-24 11:01] VITALS: BP 148/63
[2018-02-24 15:29] VITALS: BP 169/93
[2018-02-25 04:33] VITALS: BP 156/67
[2018-02-25 05:24] LABS: BASOPHILS 0.9 % (0-2); HEMATOCRIT 35.8 % (42.0-54.0); HEMOGLOBIN 11.8 g/dL (13.5-17.5); IMMATURE GRANULOCYTES 0.2 % (0-5); LYMPHOCYTES 16.4 % (15-50); MCH 31.9 pg (26.0-34.0); MCV 96.8 fL (80.0-100.0); MEAN PLATELET VOLUME 11.2 fL (7.4-10.4); MONOCYTES 8.7 % (2-11); NEUTROPHILS 65.8 % (40-80); PLATELET COUNT 189 10x3/uL (130-400); RDW 15.2 % (11.5-14.5); WBC 5.6 10x3/uL (4.8-10.8)
[2018-02-25 05:44] LABS: ANION GAP 9.9 mmol/L (8-16); BILIRUBIN - TOTAL 0.7 mg/dL (0.2-1.3); CALCIUM 8.6 mg/dL (8.5-10.1); CARBON DIOXIDE 29.5 mmol/L (21.0-32.0); CREATININE - SERUM 3.6 mg/dL (0.6-1.3); MAGNESIUM - SERUM 2.2 mg/dL (1.8-2.4); PHOSPHOROUS 4.3 mg/dL (2.5-4.9); POTASSIUM - SERUM 4.4 mmol/L (3.5-5.1); PROTEIN - SERUM 7.2 g/dL (6.4-8.2)
[2018-02-25 07:54] VITALS: BP 141/53
[2018-02-25 11:36] VITALS: BP 119/53
[2018-02-25 16:28] VITALS: BP 125/59
[2018-02-25 20:00] VITALS: BP 102/56
[2018-02-26 04:00] VITALS: BP 164/68
[2018-02-26 07:02] LABS: BASOPHILS 0.5 % (0-2); EOSINOPHILS 6.6 % (0-7); HEMATOCRIT 33.6 % (42.0-54.0); IMMATURE GRANULOCYTES 0.2 % (0-5); LYMPHOCYTES 14.6 % (15-50); MCH 31.5 pg (26.0-34.0); MCHC 32.7 g/dL (31.0-37.0); MCV 96.3 fL (80.0-100.0); MEAN PLATELET VOLUME 11.5 fL (7.4-10.4); NEUTROPHILS 65.1 % (40-80); PLATELET COUNT 171 10x3/uL (130-400); RBC 3.49 10x6/uL (4.20-6.10); RDW 15.1 % (11.5-14.5); WBC 5.8 10x3/uL (4.8-10.8)
[2018-02-26 07:12] LABS: ANION GAP 13.5 mmol/L (8-16); CALCIUM 8.6 mg/dL (8.5-10.1); CARBON DIOXIDE 26.8 mmol/L (21.0-32.0); CREATININE - SERUM 3.6 mg/dL (0.6-1.3); POTASSIUM - SERUM 4.3 mmol/L (3.5-5.1)
[2018-02-26 08:51] VITALS: BP 128/85
[2018-02-26 11:32] VITALS: BP 128/71
[2018-02-26 16:03] VITALS: BP 130/80
[2018-02-26 18:55] LABS: CREATININE - URINE 17.5 mg/dL (30-125)
[2018-02-26 18:57] LABS: PROTEIN - URINE 11.1 mg/dL (0.0-11.9)
[2018-02-26 20:00] VITALS: BP 139/67
[2018-02-27 04:00] VITALS: BP 119/49
[2018-02-27 07:10] LABS: BASOPHILS 0.3 % (0-2); EOSINOPHILS 5.5 % (0-7); HEMATOCRIT 33.2 % (42.0-54.0); IMMATURE GRANULOCYTES 0.1 % (0-5); LYMPHOCYTES 15.1 % (15-50); MCHC 33.1 g/dL (31.0-37.0); MCV 96.5 fL (80.0-100.0); MEAN PLATELET VOLUME 11.4 fL (7.4-10.4); MONOCYTES 8.8 % (2-11); NEUTROPHILS 70.2 % (40-80); PLATELET COUNT 169 10x3/uL (130-400); RBC 3.44 10x6/uL (4.20-6.10); WBC 6.7 10x3/uL (4.8-10.8)
[2018-02-27 07:29] LABS: ANION GAP 13.4 mmol/L (8-16); CALCIUM 8.6 mg/dL (8.5-10.1); CARBON DIOXIDE 27.4 mmol/L (21.0-32.0); CREATININE - SERUM 4.1 mg/dL (0.6-1.3); POTASSIUM - SERUM 4.8 mmol/L (3.5-5.1)
[2018-02-27 08:13] VITALS: BP 136/71
[2018-02-27 11:52] VITALS: BP 140/70
[2018-02-27 12:18] LABS: ANA REFLEX - DIRECT Negative (Negative)
[2018-02-27 16:29] VITALS: BP 134/58
[2018-02-27 22:28] VITALS: BP 140/61
[2018-02-28 00:41] VITALS: BP 157/68
[2018-02-28 05:44] VITALS: BP 110/49; BP 140/61
[2018-02-28 05:59] LABS: ANION GAP 10.9 mmol/L (8-16); CALCIUM 8.9 mg/dL (8.5-10.1); CARBON DIOXIDE 28.5 mmol/L (21.0-32.0); CREATININE - SERUM 4.1 mg/dL (0.6-1.3); POTASSIUM - SERUM 5.4 mmol/L (3.5-5.1)
[2018-02-28 06:40] LABS: BASOPHILS 0.4 % (0-2); EOSINOPHILS 6.1 % (0-7); HEMATOCRIT 34.6 % (42.0-54.0); HEMOGLOBIN 11.3 g/dL (13.5-17.5); IMMATURE GRANULOCYTES 0.2 % (0-5); LYMPHOCYTES 17.5 % (15-50); MCHC 32.7 g/dL (31.0-37.0); MEAN PLATELET VOLUME 11.5 fL (7.4-10.4); MONOCYTES 8.2 % (2-11); NEUTROPHILS 67.6 % (40-80); PLATELET COUNT 176 10x3/uL (130-400); RBC 3.53 10x6/uL (4.20-6.10); RDW 15.1 % (11.5-14.5); WBC 5.3 10x3/uL (4.8-10.8)
[2018-02-28 08:50] VITALS: BP 149/67
[2018-02-28 12:34] VITALS: Ht 180.3 cm; Wt 66.5 kg
[2018-02-28 13:04] VITALS: BP 140/67
[2018-02-28 16:55] VITALS: BP 138/57
[2018-02-28 21:22] VITALS: BP 143/45
[2018-03-01 01:07] VITALS: BP 148/63
[2018-03-01 05:13] VITALS: BP 162/51
[2018-03-01 05:59] LABS: BASOPHILS 0.5 % (0-2); EOSINOPHILS 3.9 % (0-7); HEMATOCRIT 32.6 % (42.0-54.0); HEMOGLOBIN 10.5 g/dL (13.5-17.5); IMMATURE GRANULOCYTES 0.2 % (0-5); LYMPHOCYTES 16.8 % (15-50); MCH 31.6 pg (26.0-34.0); MCHC 32.2 g/dL (31.0-37.0); MCV 98.2 fL (80.0-100.0); MEAN PLATELET VOLUME 11.2 fL (7.4-10.4); MONOCYTES 6.8 % (2-11); NEUTROPHILS 71.8 % (40-80); PLATELET COUNT 171 10x3/uL (130-400); RBC 3.32 10x6/uL (4.20-6.10); RDW 14.9 % (11.5-14.5); WBC 6.6 10x3/uL (4.8-10.8)
[2018-03-01 06:25] LABS: ANION GAP 11.7 mmol/L (8-16); CALCIUM 8.7 mg/dL (8.5-10.1); CARBON DIOXIDE 26.8 mmol/L (21.0-32.0); CREATININE - SERUM 3.9 mg/dL (0.6-1.3); POTASSIUM - SERUM 5.5 mmol/L (3.5-5.1)
[2018-03-01 08:21] VITALS: BP 137/64
[2018-03-01 12:52] VITALS: BP 151/52
[2018-03-01 16:40] VITALS: BP 151/74
[2018-03-01 21:20] VITALS: BP 159/87
[2018-03-02 02:00] VITALS: BP 146/80
[2018-03-02 05:44] LABS: BASOPHILS 0.7 % (0-2); HEMATOCRIT 35.8 % (42.0-54.0); LYMPHOCYTES 15.8 % (15-50); MCH 32.4 pg (26.0-34.0); MCHC 33.5 g/dL (31.0-37.0); MCV 96.8 fL (80.0-100.0); MEAN PLATELET VOLUME 11.4 fL (7.4-10.4); MONOCYTES 8.4 % (2-11); NEUTROPHILS 70.1 % (40-80); PLATELET COUNT 170 10x3/uL (130-400); RDW 14.7 % (11.5-14.5); WBC 5.4 10x3/uL (4.8-10.8)
[2018-03-02 06:00] VITALS: BP 162/75
[2018-03-02 06:00] LABS: ANION GAP 10.7 mmol/L (8-16); CALCIUM 8.8 mg/dL (8.5-10.1); CARBON DIOXIDE 28.6 mmol/L (21.0-32.0); CREATININE - SERUM 3.5 mg/dL (0.6-1.3)
[2018-03-02 06:01] LABS: POTASSIUM - SERUM 4.3 mmol/L (3.5-5.1)
[2018-03-02 08:00] VITALS: BP 164/78
[2018-03-02 17:16] VITALS: BP 136/77
[2018-03-02 20:00] VITALS: BP 147/80
[2018-03-03] VITALS (7 sets, daily range): BP systolic 114–153; BP diastolic 53–71
[2018-03-03 04:25] LABS: BASOPHILS 0.4 % (0-2); EOSINOPHILS 4.9 % (0-7); HEMATOCRIT 34.9 % (42.0-54.0); HEMOGLOBIN 11.5 g/dL (13.5-17.5); IMMATURE GRANULOCYTES 0.3 % (0-5); LYMPHOCYTES 15.3 % (15-50); MCH 31.8 pg (26.0-34.0); MCV 96.4 fL (80.0-100.0); MEAN PLATELET VOLUME 11.1 fL (7.4-10.4); MONOCYTES 6.5 % (2-11); NEUTROPHILS 72.6 % (40-80); PLATELET COUNT 184 10x3/uL (130-400); RBC 3.62 10x6/uL (4.20-6.10); RDW 14.6 % (11.5-14.5); WBC 6.8 10x3/uL (4.8-10.8)
[2018-03-03 04:50] LABS: ANION GAP 10.4 mmol/L (8-16); CALCIUM 8.7 mg/dL (8.5-10.1); CARBON DIOXIDE 28.4 mmol/L (21.0-32.0); CREATININE - SERUM 3.4 mg/dL (0.6-1.3); POTASSIUM - SERUM 3.8 mmol/L (3.5-5.1)
[2018-03-04 04:00] VITALS: BP 146/67
[2018-03-04 04:39] LABS: BASOPHILS 0.3 % (0-2); EOSINOPHILS 4.8 % (0-7); HEMOGLOBIN 11.1 g/dL (13.5-17.5); IMMATURE GRANULOCYTES 0.3 % (0-5); LYMPHOCYTES 15.7 % (15-50); MCH 31.5 pg (26.0-34.0); MCHC 32.6 g/dL (31.0-37.0); MCV 96.6 fL (80.0-100.0); MEAN PLATELET VOLUME 10.9 fL (7.4-10.4); MONOCYTES 8.9 % (2-11); PLATELET COUNT 180 10x3/uL (130-400); RBC 3.52 10x6/uL (4.20-6.10); RDW 14.4 % (11.5-14.5); WBC 6.1 10x3/uL (4.8-10.8)
[2018-03-04 04:50] LABS: ANION GAP 11.9 mmol/L (8-16); CALCIUM 8.4 mg/dL (8.5-10.1); CARBON DIOXIDE 28.7 mmol/L (21.0-32.0); CREATININE - SERUM 3.2 mg/dL (0.6-1.3); POTASSIUM - SERUM 3.6 mmol/L (3.5-5.1)
[2018-03-04 08:08] VITALS: BP 105/53
[2018-03-04 11:00] VITALS: BP 115/50
[2018-03-04 14:35] VITALS: BP 113/64
[2018-03-04 20:14] VITALS: BP 140/68
[2018-03-05 00:19] VITALS: BP 158/79
[2018-03-05 04:00] VITALS: BP 191/74
[2018-03-05 05:52] LABS: BASOPHILS 0.6 % (0-2); EOSINOPHILS 3.7 % (0-7); HEMATOCRIT 34.3 % (42.0-54.0); HEMOGLOBIN 11.3 g/dL (13.5-17.5); IMMATURE GRANULOCYTES 0.4 % (0-5); LYMPHOCYTES 14.4 % (15-50); MCH 31.7 pg (26.0-34.0); MCHC 32.9 g/dL (31.0-37.0); MCV 96.3 fL (80.0-100.0); MEAN PLATELET VOLUME 11.1 fL (7.4-10.4); MONOCYTES 8.9 % (2-11); PLATELET COUNT 166 10x3/uL (130-400); RBC 3.56 10x6/uL (4.20-6.10); RDW 14.1 % (11.5-14.5); WBC 7.2 10x3/uL (4.8-10.8)
[2018-03-05 06:04] LABS: CALCIUM 8.2 mg/dL (8.5-10.1); CARBON DIOXIDE 30.3 mmol/L (21.0-32.0); CREATININE - SERUM 3.2 mg/dL (0.6-1.3)
[2018-03-05 06:06] LABS: POTASSIUM - SERUM 4.3 mmol/L (3.5-5.1)
[2018-03-05 07:50] VITALS: BP 109/41
[2018-03-05 08:00] VITALS: BP 148/60
[2018-03-05 10:50] VITALS: BP 99/62
[2018-03-05] MEDS ORDERED: XARELTO15 MG PO (13:22)
[2018-03-05] MEDS ORDERED: CARDIZEM CD180 MG PO (13:23)
[2018-03-05] MEDS ORDERED: ZOFRAN ODT4 MG/UDTAB PO (13:54)
[2018-03-05 15:11] VITALS: BP 100/60
== END 2018-03-05 20:30 | disposition home health service (06) | DRG 291 ==
LOC: D.ER 07:54 → D.M2 15:18 → D.EDHOLD 15:18 → D.M2 15:39
PROVIDERS: Family Medicine; Internal Medicine; Internal Medicine Nephrology; Internal Medicine Pulmonary Disease
DX: I13.0 Hypertensive heart and chronic kidney disease with heart failure and stage 1 through stage 4 chronic kidney disease, or unspecified chronic kidney disease (principal); I50.33 Acute on chronic diastolic (congestive) heart failure; J69.0 Pneumonitis due to inhalation of food and vomit; J44.1 Chronic obstructive pulmonary disease with (acute) exacerbation; N17.9 Acute kidney failure, unspecified; N18.4 Chronic kidney disease, stage 4 (severe); E11.22 Type 2 diabetes mellitus with diabetic chronic kidney disease; E11.65 Type 2 diabetes mellitus with hyperglycemia; I25.10 Atherosclerotic heart disease of native coronary artery without angina pectoris; I48.0 Paroxysmal atrial fibrillation; K21.9 Gastro-esophageal reflux disease without esophagitis; I27.20 Pulmonary hypertension, unspecified; E87.5 Hyperkalemia; I34.0 Nonrheumatic mitral (valve) insufficiency; Z95.1 Presence of aortocoronary bypass graft; Z95.5 Presence of coronary angioplasty implant and graft

== ENCOUNTER 2018-03-06 06:41 | Emergency (ER) | payer MEDICARE ==
[2018-02-28 12:34] VITALS: Ht 180.3 cm; Wt 66.4 kg
[~2018-03-06] VITALS: Ht 180.3 cm; Wt 66.4 kg
[~2018-03-06 06:41] MED LIST changes: +CARDIZEM CD180 MG PO; +CYMBALTA30 MG PO; +VITAMIN B COMPL1 TAB PO; +VITAMIN D31000 UNI2 PO; +XARELTO15 MG PO; +ZOFRAN ODT4 MG/UDTAB PO
[2018-03-06 07:00] LABS: BASOPHILS 0.3 % (0-2); EOSINOPHILS 2.7 % (0-7); HEMATOCRIT 34.5 % (42.0-54.0); HEMOGLOBIN 11.6 g/dL (13.5-17.5); IMMATURE GRANULOCYTES 0.3 % (0-5); LYMPHOCYTES 15.1 % (15-50); MCHC 33.6 g/dL (31.0-37.0); MCV 95.3 fL (80.0-100.0); MEAN PLATELET VOLUME 11.2 fL (7.4-10.4); MONOCYTES 6.2 % (2-11); NEUTROPHILS 75.4 % (40-80); PLATELET COUNT 173 10x3/uL (130-400); RBC 3.62 10x6/uL (4.20-6.10); RDW 14.3 % (11.5-14.5); WBC 7.4 10x3/uL (4.8-10.8)
[2018-03-06 07:13] LABS: ALBUMIN 2.9 g/dL (3.4-5.0); ALKALINE PHOSPHATASE 121 U/L (46-116); ALT (SGPT) 36 U/L (10-68); BILIRUBIN - TOTAL 0.64 mg/dL (0.2-1.3); CALC OSMOLALITY 308 mosm/kg (275-300); CARBON DIOXIDE 23.5 mmol/L (21.0-32.0); CHLORIDE - SERUM 102 mmol/L (98-107); CREATININE - SERUM 3.7 mg/dL (0.6-1.3); GLUCOSE 140 mg/dL (74-106); POTASSIUM - SERUM 3.8 mmol/L (3.5-5.1); SODIUM 139 mmol/L (136-145); UREA NITROGEN 94 mg/dL (7-18); eGFR NON AFRICAN AMERICAN 17 mL/min (90-120)
[2018-03-06 07:18] LABS: INR 2.33 (0.85-1.17); PROTIME 24.9 SECONDS (11.6-15.0)
[2018-03-06 07:19] LABS: APTT 59.5 SECONDS (22.8-39.4); D-DIMER-QUANTITATIVE 1.49 ug/mLFEU (0.20-0.54)
[2018-03-06 07:25] LABS: CKMB 1.5 U/L (0.0-3.6); CREATINE KINASE 27 UL (21-232); PRO BNP 11173 pg/mL (0-450); TROPONIN-I 0.021 ng/mL (0.000-0.060)
[2018-03-06 08:57] LABS: APPEARANCE HAZY (CLEAR); BILIRUBIN NEGATIVE (NEGATIVE); COLOR YELLOW (YELLOW); GLUCOSE NEGATIVE (NEGATIVE); KETONE NEGATIVE (NEGATIVE); NITRITE NEGATIVE (NEGATIVE); PROTEIN 2+ mg/dL (NEGATIVE); SPECIFIC GRAVITY 1.015 (1.005-1.020); UROBILINOGEN NORMAL (NORMAL)
[2018-03-06 08:58] LABS: BACTERIA FEW /hpf (NONE SEEN); EPITHELIAL CELLS OCC /hpf (0-5); MUCUS <1+ /lpf (NONE SEEN); WHITE CELLS - URINE RARE /hpf (0-5)
[2018-03-06 17:44] VITALS: BP 165/72
== END 2018-03-06 16:50 ==
LOC: D.ER 06:41
PROVIDERS: Family Medicine
DX: I50.9 Heart failure, unspecified (principal); J44.9 Chronic obstructive pulmonary disease, unspecified; R11.0 Nausea; E11.9 Type 2 diabetes mellitus without complications; I10 Essential (primary) hypertension; K21.9 Gastro-esophageal reflux disease without esophagitis; I45.10 Unspecified right bundle-branch block

== ENCOUNTER 2018-03-22 18:38 | Inpatient (IN) | payer MEDICARE ==
[~2018-03-22] VITALS: Ht 180.3 cm; Wt 83.1 kg
--- NOTE | ~2018-03-22 | HP ---
PATIENT: MARIAMA ZUÑIGA MEDICAL RECORD: [id number] ACCOUNT: [id number] LOCATION:[facility] D.2302 : 40 ADMISSION DATE: 03/22/18 PCP: No PCP HISTORY AND PHYSICAL EXAMINATION HISTORY OF PRESENT ILLNESS: Mr. Zuñiga is a 77-year-old white male that presents to the Emergency Room with decreased mental status. He has a longstanding history of multiple medical problems, was hospitalized here back in January. Upon presentation, he was found to have a hemoglobin of 4 and grossly guaiac positive stools. He has a history of atrial fibrillation and DVT in the past, so he is on anticoagulation with Xarelto and Plavix. He was intubated in the Emergency Room and now will be going to the ICU. PAST MEDICAL HISTORY: Significant medical problems including hypertension, congestive heart failure, coronary artery disease with previous PTCA, diabetes, congestive heart failure, acid reflux, peptic ulcer disease with previous gastric resection, BPH. PAST SURGICAL HISTORY: Surgeries include previous CABG, PTCA, and gastric resection. ALLERGIES: PENICILLIN. HOME MEDICATIONS: Xarelto, doxazosin 8 mg a day, Plavix 75 mg a day, Coreg 25 b.i.d., duloxetine 30 mg a day, Bumex 2 mg daily, pantoprazole 40 mg a day, Carafate 1 g a.c. and at bedtime. FAMILY HISTORY: Noncontributory. SOCIAL HISTORY: The patient is . His is here in the Emergency Room this evening. He is currently living in a residential setting. REVIEW OF SYSTEMS: Unobtainable. The patient is intubated with a history per states that he has been having some increasing abdominal GI discomfort but no fever over the last few days. No recent chest pain or shortness of breath to her knowledge. PHYSICAL EXAMINATION: GENERAL: The patient is intubated at this time and unresponsive. HEENT: Pupils are symmetrical and pallor to the mucous membranes. HEART: He is mildly tachycardic. LUNGS: Good breath sounds bilateral. ABDOMEN: Soft, scaphoid. EXTREMITIES: Lower extremities reveal no edema. NEUROLOGIC: Incomplete secondary to current status. IMPRESSION: 1. Severe anemia. 2. Gastric bleed. 3. Anticoagulation secondary to atrial fibrillation and history of deep venous thrombosis. 4. Coronary artery disease. 5. Atrial fibrillation. 6. History of deep venous thrombosis. 7. Benign prostatic hypertrophy. HISTORY AND PHYSICAL [id number] MARIAMA ZUÑIGA 8. Hypertension. 9. Dementia. 10. Chronic anemia. 11. Renal insufficiency. 12. Chronic obstructive pulmonary disease with pulmonary hypertension, appears his baseline. 13. His creatinine is around 3. He is up around 4 now. PLAN: Admit to ICU. Hold Xarelto and Plavix. Transfuse, GI consult. Pulmonary consult. Check an echo, IV fluids and supportive care. See orders for rest of the plan. TRANSINT:[id number] Voice Confirmation ID: [id number] DOCUMENT ID: [id number] KANA SUMNER DO at 1702 CC: [id number] DICTATION DATE: 03/22/182124 CONTRACT TECHNICIAN: 03/22/[address] [facility] [address] [place] [address]
--- NOTE | ~2018-03-22 | EC ---
PATIENT:MARIAMA ZUÑIGA DATE OF SERVICE: 03/22/18 SEX: M MEDICAL RECORD: [id number] DATE OF : 40 LOCATION:[facility] AGE OF PATIENT: 77 ADMISSION DATE: 03/22/18 REFERRING PHYSICIAN: INTERPRETING PHYSICIAN: DAREN MACDONALD MD ECHOCARDIOGRAM REPORT ECHO CHARGES 5 ECHO LIMITED Date: 03/23/18 1 DOPPLER ECHO COLOR FLOW CLINICAL DIAGNOSIS: CHF ECHOCARDIOGRAPHIC MEASUREMENTS (adult normal given) AC root (d.<3.7cm) cm LV Septum d (<1.2 cm> cm Valve Excursion cm LV Septum (systole) cm Left Atria (s.<4.0cm> 5.4 cm LVPW d(<1.2cm) cm RV (d.<2.3cm) cm LVPW (sytole) cm LV diastole(<5.6CM) cm MV E-F(>70mm/sec) cm LV systole cm LVOT Diameter cm MV exc.(>10mm) cm Est.ejection fraction (50-75%) % DOPPLER: LVIT cm/sec A cm/sec E cm/sec LA cm/sec RVSP 46.2 mmHg LVOT cm/sec AOP1/2T m/s Asc. Ao cm/sec RVOT cm/sec RA cm/sec PA cm/sec AV Gradient Peak mmHg AV Mean mmHg AV Area cm MV Gradient Peak mmHg MV Mean mmHg MV Area cm COMMENTS: Slipper Maker: Imelda ANDUJAR Furnace Combination Analyst: Sharath Macdonald TAPE# PACS Pericardial Effusion N DATE OF SERVICE: 03/22/2018 PROCEDURE: Echocardiogram. FINDINGS: 1. Left ventricular chamber size is within normal limits. Left ventricular systolic function is normal. Overall ejection fraction estimated at 50%. 2. Left atrium is enlarged at 5.4 cm. Right atrium and right ventricle chamber sizes are as well mildly dilated. 3. Valvular structures have normal structure and motion. ECHOCARDIOGRAM REPORT [id number] MARIAMA ZUÑIGA 4. Doppler interrogation reveals wmeh-ah-kraflefl mitral regurgitation, mild tricuspid regurgitation, no other valvular insufficiency or stenosis. Pulmonary systolic pressure is estimated at 46 mmHg. 5. No evidence of pericardial effusion or left ventricular thrombus. TRANSINT:[id number] Voice Confirmation ID: [id number] DOCUMENT ID: [id number] DAREN MACDONALD MD at 1823 CC: [id number] DICTATION DATE: 03/23/18 1153 WATER SOFTENER INSTALLER: 03/23/18 1207 ADM IN [facility] [address] [id number]
--- NOTE | ~2018-03-22 | CN ---
PATIENT NAME:MARIAMA ZUÑIGA MEDICAL RECORD: [id number] : 40 [facility] ADMIT DATE: 03/22/18 ACCOUNT: [id number] CONSULTING PHYSICIAN: ERIN ALCANTARA MD REFERRING PHYSICIAN: KANA SUMNER DO DATE OF CONSULTATION: 03/23/2018 CONSULT REQUESTING PHYSICIAN: Kana Sumner DO REASON FOR CONSULTATION: Vent management. HISTORY OF PRESENT ILLNESS: Mr. Zuñiga is a 77-year-old gentleman who was brought into the ER for severe anemia. The patient does have history of atrial fibrillation, for which he was anticoagulated with Xarelto and Plavix. On arrival to the ER, his hematocrit was 12.9 and hemoglobin 4.1. The patient had mental status changes and the patient was intubated in the ER. Now, the patient is orally intubated and sedated. The history is taken by reviewing the patient's note and talking to the nursing staff. PAST MEDICAL HISTORY: 1. COPD. 2. Congestive heart failure, chronic diastolic dysfunction. 3. Chronic kidney disease. 4. History of CVA. 5. Mitral valve disease. 6. Gastroesophageal reflux disease. 7. History of atrial fibrillation. PAST SURGICAL HISTORY: 1. Partial gastric resection. 2. He had CABG. 3. Cardiac catheterization and stent placement in the past. ALLERGIES: HE IS ALLERGIC TO PENICILLIN. MEDICATIONS: RatingBug was reviewed. PERSONAL AND SOCIAL HISTORY: Unknown. FAMILY HISTORY: Noncontributory. PHYSICAL EXAMINATION: GENERAL: Now, the patient is orally intubated and sedated. VITAL SIGNS: Blood pressure is 127/77, pulse is 79, respiration 15, temperature is 98.8, and SpO2 is 98% on 40% oxygen on mechanical ventilation. The vent setting at the moment is tidal volume of 500, PEEP of 5, and FiO2 of 40%. HEENT: Conjunctiva are pale. Sclerae are not icteric. Pupils are equal, round, and reactive to light. NECK: Neck is supple. No JVD. CHEST: Excursion equally on both sides. There is crackle at the bases. HEART: Rate and rhythm are regular with grade II/ systolic murmur. ABDOMEN: Abdomen is soft. Bowel sounds present. No hepatosplenomegaly. RECTAL: Deferred. EXTREMITIES: No cyanosis. No clubbing. No pedal edema. SKIN: The skin is warm. Normal turgor. CONSULT REPORT [id number] MARIAMA ZUÑIGA CENTRAL NERVOUS SYSTEM: The patient is orally intubated and sedated. There is no obvious cranial nerve abnormality. LABORATORY DATA: CBC; WBC is 9.4, hemoglobin 4.1, hematocrit 12.9, and platelet count 225. Chemistry; sodium 141, potassium is 5, BUN is 153, creatinine 3.4, and glucose 89. CHEST RADIOGRAPH: There is CT scan of the chest. There is small- to moderate-size trace left pleural effusion. There is dependent airspace opacity in the right lower lung. IMPRESSION: 1. Acute respiratory failure secondary to mental status changes. 2. Left lower lobe pneumonia, possible community-acquired pneumonia, possible aspiration. 3. Pleural effusion. 4. Mental status changes. 5. Severe anemia secondary to GI bleed. 6. Wgaux-cw-mprvwer renal failure. 7. Lactic acidosis, possible hemorrhagic shock. 8. Congestive heart failure with elevated proBNP, consistent with chronic diastolic dysfunction. The EF is 50%. 9. Lwagxsgy-kc-miepfi pulmonary hypertension. PA pressure 49.2, most likely secondary to CHF. 10. COPD without exacerbation. 11. Mitral regurgitation. RECOMMENDATION: 1. Continue mechanical ventilation and adjust the setting. 2. Start empiric Rocephin and Zithromax. 3. Transfuse to keep the hematocrit above 25-26. 4. IV Protonix. 5. DVT prophylaxis. 6. Followup labs and chest radiograph. 7. Check the sputum culture. We will wean when the patient is stable. Dr. Sumner, thank you for involving me in the care of Mr. Zuñiga. The critical care time was 15 minutes. TRANSINT:[id number] Voice Confirmation ID: [id number] DOCUMENT ID: [id number] ERIN ALCANTARA MD at 1301 CC: [id number] DICTATION DATE: 03/23/18 1544 BUSHEL WORKER: 03/23/18 1639 ADM IN [facility] [address] [place] [address]
[2018-03-22 19:19] LABS: BASOPHILS 0.2 % (0-2); EOSINOPHILS 0.2 % (0-7); IMMATURE GRANULOCYTES 1.3 % (0-5); MCH 30.8 pg (26.0-34.0); MCHC 31.8 g/dL (31.0-37.0); MEAN PLATELET VOLUME 10.3 fL (7.4-10.4); MONOCYTES 3.9 % (2-11); NEUTROPHILS 83.4 % (40-80); RDW 15.2 % (11.5-14.5); WBC 9.4 10x3/uL (4.8-10.8)
[2018-03-22 19:23] LABS: HEMATOCRIT 12.9 % (42.0-54.0); HEMOGLOBIN 4.1 g/dL (13.5-17.5); PLATELET COUNT 225 10x3/uL (130-400); RBC 1.33 10x6/uL (4.20-6.10)
[2018-03-22 19:24] LABS: ALBUMIN 2.2 g/dL (3.4-5.0); ANION GAP 24.1 mmol/L (8-16); BILIRUBIN - TOTAL 0.36 mg/dL (0.2-1.3); CALCIUM 8.4 mg/dL (8.5-10.1); CARBON DIOXIDE 15.3 mmol/L (21.0-32.0); POTASSIUM - SERUM 5.4 mmol/L (3.5-5.1); PROTEIN - SERUM 5.2 g/dL (6.4-8.2)
[2018-03-22 19:33] LABS: MAGNESIUM - SERUM 2.5 mg/dL (1.8-2.4); THYROID STIMULATING HORMONE 2.62 uIU/mL (0.36-3.74); TROPONIN-I 0.023 ng/mL (0.000-0.060)
[2018-03-22 20:33] LABS: APPEARANCE CLEAR (CLEAR); BILIRUBIN NEGATIVE (NEGATIVE); COLOR YELLOW (YELLOW); GLUCOSE NEGATIVE (NEGATIVE); KETONE NEGATIVE (NEGATIVE); NITRITE NEGATIVE (NEGATIVE); PROTEIN NEGATIVE (NEGATIVE); UROBILINOGEN NORMAL (NORMAL)
[2018-03-22 20:36] LABS: BACTERIA MANY /hpf (NONE SEEN); WHITE CELLS - URINE 0-5 /hpf (0-5); YEAST <1+ /hpf (NONE SEEN)
[2018-03-22 20:44] VITALS: BP 144/54
[2018-03-22 21:00] VITALS: BP 129/78
[2018-03-22 22:00] VITALS: BP 139/88
[2018-03-22 22:11] VITALS: BP 114/76; BMI 20.8
[2018-03-22 23:00] VITALS: BP 122/88
[2018-03-23] VITALS (24 sets, daily range): BP systolic 97–147; BP diastolic 48–89
[2018-03-23 03:30] LABS: APTT 41.9 SECONDS (22.8-39.4); INR 2.09 (0.85-1.17); PROTIME 22.8 SECONDS (11.6-15.0)
[2018-03-23 04:45] LABS: BASOPHILS 0.3 % (0-2); EOSINOPHILS 0.5 % (0-7); HEMATOCRIT 25.3 % (42.0-54.0); HEMOGLOBIN 8.6 g/dL (13.5-17.5); IMMATURE GRANULOCYTES 0.9 % (0-5); MCH 31.7 pg (26.0-34.0); MCV 93.4 fL (80.0-100.0); MEAN PLATELET VOLUME 10.1 fL (7.4-10.4); MONOCYTES 9.3 % (2-11); PLATELET COUNT 167 10x3/uL (130-400); RBC 2.71 10x6/uL (4.20-6.10); RDW 14.5 % (11.5-14.5); WBC 10.2 10x3/uL (4.8-10.8)
[2018-03-23 05:23] LABS: ALBUMIN 2.3 g/dL (3.4-5.0); ANION GAP 20.9 mmol/L (8-16); BILIRUBIN - TOTAL 0.48 mg/dL (0.2-1.3); CALCIUM 8.1 mg/dL (8.5-10.1); CARBON DIOXIDE 18.1 mmol/L (21.0-32.0); CREATININE - SERUM 3.4 mg/dL (0.6-1.3); PROTEIN - SERUM 4.9 g/dL (6.4-8.2)
[2018-03-23 12:25] LABS: HEMATOCRIT 23.4 % (42.0-54.0); HEMOGLOBIN 7.8 g/dL (13.5-17.5)
[2018-03-23 20:04] LABS: HEMATOCRIT 31.6 % (42.0-54.0); HEMOGLOBIN 10.6 g/dL (13.5-17.5)
[2018-03-24] VITALS (24 sets, daily range): BP systolic 120–159; BP diastolic 65–92; BMI 21.7
[2018-03-24 04:52] LABS: HEMATOCRIT 34.7 % (42.0-54.0); HEMOGLOBIN 11.8 g/dL (13.5-17.5)
[2018-03-24 05:02] LABS: ANION GAP 20.5 mmol/L (8-16); CALCIUM 8.4 mg/dL (8.5-10.1); CARBON DIOXIDE 19.5 mmol/L (21.0-32.0); CREATININE - SERUM 3.3 mg/dL (0.6-1.3)
[2018-03-24 12:24] LABS: HEMATOCRIT 30.7 % (42.0-54.0); HEMOGLOBIN 10.5 g/dL (13.5-17.5)
[2018-03-25] VITALS (24 sets, daily range): BP systolic 122–141; BP diastolic 35–97; Ht 180.3 cm; Wt 83.1 kg
[2018-03-25 04:19] LABS: BASOPHILS 0.1 % (0-2); EOSINOPHILS 0.8 % (0-7); HEMOGLOBIN 9.5 g/dL (13.5-17.5); IMMATURE GRANULOCYTES 0.4 % (0-5); LYMPHOCYTES 4.1 % (15-50); MCH 30.7 pg (26.0-34.0); MCHC 32.8 g/dL (31.0-37.0); MCV 93.9 fL (80.0-100.0); MONOCYTES 8.4 % (2-11); NEUTROPHILS 86.2 % (40-80); PLATELET COUNT 191 10x3/uL (130-400); RBC 3.09 10x6/uL (4.20-6.10); RDW 16.5 % (11.5-14.5); WBC 12.2 10x3/uL (4.8-10.8)
[2018-03-25 04:33] LABS: INR 1.56 (0.85-1.17); PROTIME 18.2 SECONDS (11.6-15.0)
[2018-03-25 04:34] LABS: APTT 48.2 SECONDS (22.8-39.4)
[2018-03-25 04:47] LABS: ALBUMIN 1.9 g/dL (3.4-5.0); ANION GAP 22.1 mmol/L (8-16); BILIRUBIN - TOTAL 0.55 mg/dL (0.2-1.3); CARBON DIOXIDE 18.5 mmol/L (21.0-32.0); CREATININE - SERUM 3.2 mg/dL (0.6-1.3); MAGNESIUM - SERUM 2.7 mg/dL (1.8-2.4); PHOSPHOROUS 5.9 mg/dL (2.5-4.9); POTASSIUM - SERUM 4.6 mmol/L (3.5-5.1); PROTEIN - SERUM 4.7 g/dL (6.4-8.2)
[2018-03-25 18:27] LABS: HEMATOCRIT 29.6 % (42.0-54.0); HEMOGLOBIN 9.7 g/dL (13.5-17.5)
[2018-03-26] VITALS (36 sets, daily range): BP systolic 101–147; BP diastolic 60–93
[2018-03-26 03:53] LABS: BASOPHILS 0.1 % (0-2); EOSINOPHILS 0.5 % (0-7); HEMATOCRIT 29.5 % (42.0-54.0); HEMOGLOBIN 9.6 g/dL (13.5-17.5); IMMATURE GRANULOCYTES 0.5 % (0-5); LYMPHOCYTES 4.6 % (15-50); MCHC 32.5 g/dL (31.0-37.0); MCV 95.2 fL (80.0-100.0); MONOCYTES 6.5 % (2-11); NEUTROPHILS 87.8 % (40-80); PLATELET COUNT 178 10x3/uL (130-400); WBC 9.6 10x3/uL (4.8-10.8)
[2018-03-26 04:09] LABS: ALBUMIN 1.7 g/dL (3.4-5.0); BILIRUBIN - TOTAL 0.62 mg/dL (0.2-1.3); CALCIUM 8.1 mg/dL (8.5-10.1); CARBON DIOXIDE 20.1 mmol/L (21.0-32.0); CREATININE - SERUM 2.8 mg/dL (0.6-1.3); MAGNESIUM - SERUM 2.5 mg/dL (1.8-2.4); PHOSPHOROUS 4.8 mg/dL (2.5-4.9)
[2018-03-26 04:10] LABS: ANION GAP 15.7 mmol/L (8-16); POTASSIUM - SERUM 3.8 mmol/L (3.5-5.1)
[2018-03-27] VITALS (35 sets, daily range): BP systolic 103–145; BP diastolic 51–89
[2018-03-27 04:51] LABS: BASOPHILS 0.2 % (0-2); EOSINOPHILS 1.9 % (0-7); HEMATOCRIT 27.2 % (42.0-54.0); IMMATURE GRANULOCYTES 0.6 % (0-5); MCH 31.4 pg (26.0-34.0); MCHC 33.1 g/dL (31.0-37.0); MCV 94.8 fL (80.0-100.0); MEAN PLATELET VOLUME 10.6 fL (7.4-10.4); MONOCYTES 6.7 % (2-11); NEUTROPHILS 86.6 % (40-80); PLATELET COUNT 169 10x3/uL (130-400); RBC 2.87 10x6/uL (4.20-6.10); RDW 16.8 % (11.5-14.5); WBC 10.5 10x3/uL (4.8-10.8)
[2018-03-27 04:59] LABS: ANION GAP 17.3 mmol/L (8-16); CARBON DIOXIDE 17.7 mmol/L (21.0-32.0); CREATININE - SERUM 2.5 mg/dL (0.6-1.3); MAGNESIUM - SERUM 2.5 mg/dL (1.8-2.4); PHOSPHOROUS 4.5 mg/dL (2.5-4.9)
[2018-03-28] VITALS (24 sets, daily range): BP systolic 110–159; BP diastolic 63–94
[2018-03-28 04:28] LABS: BASOPHILS 0 % (0-2); EOSINOPHILS 3.6 % (0-7); HEMATOCRIT 26.4 % (42.0-54.0); HEMOGLOBIN 8.4 g/dL (13.5-17.5); IMMATURE GRANULOCYTES 0.5 % (0-5); LYMPHOCYTES 5.4 % (15-50); MCH 30.7 pg (26.0-34.0); MCHC 31.8 g/dL (31.0-37.0); MCV 96.4 fL (80.0-100.0); MEAN PLATELET VOLUME 10.3 fL (7.4-10.4); MONOCYTES 7.1 % (2-11); NEUTROPHILS 83.4 % (40-80); PLATELET COUNT 194 10x3/uL (130-400); RBC 2.74 10x6/uL (4.20-6.10); RDW 16.8 % (11.5-14.5); WBC 9.5 10x3/uL (4.8-10.8)
[2018-03-28 04:31] LABS: ANION GAP 14.8 mmol/L (8-16); CALCIUM 8.2 mg/dL (8.5-10.1); CARBON DIOXIDE 17.8 mmol/L (21.0-32.0); CREATININE - SERUM 2.6 mg/dL (0.6-1.3); POTASSIUM - SERUM 3.6 mmol/L (3.5-5.1)
[2018-03-28 04:45] LABS: INR 1.42 (0.85-1.17); PROTIME 16.8 SECONDS (11.6-15.0)
[2018-03-28 04:46] LABS: APTT 48.9 SECONDS (22.8-39.4)
[2018-03-28 12:17] LABS: FUNGUS STAIN Final report (())
[2018-03-28 16:16] LABS: ACID FAST SMEAR Negative (()); AFB SPECIMEN PROCESSING Concentration (())
[2018-03-29] VITALS (24 sets, daily range): BP systolic 127–153; BP diastolic 64–85
[2018-03-29 07:12] LABS: ANION GAP 15.3 mmol/L (8-16); BASOPHILS 0.2 % (0-2); CALCIUM 8.2 mg/dL (8.5-10.1); CARBON DIOXIDE 16.3 mmol/L (21.0-32.0); CREATININE - SERUM 2.5 mg/dL (0.6-1.3); HEMATOCRIT 30.6 % (42.0-54.0); IMMATURE GRANULOCYTES 1.2 % (0-5); LYMPHOCYTES 5.6 % (15-50); MCH 30.8 pg (26.0-34.0); MCHC 32.7 g/dL (31.0-37.0); MCV 94.2 fL (80.0-100.0); MEAN PLATELET VOLUME 10.2 fL (7.4-10.4); MONOCYTES 9.2 % (2-11); NEUTROPHILS 79.8 % (40-80); PLATELET COUNT 168 10x3/uL (130-400); POTASSIUM - SERUM 3.6 mmol/L (3.5-5.1); RBC 3.25 10x6/uL (4.20-6.10); RDW 17.1 % (11.5-14.5)
[2018-03-30] VITALS (24 sets, daily range): BP systolic 123–161; BP diastolic 68–98
[2018-03-30 07:31] LABS: BASOPHILS 0.2 % (0-2); EOSINOPHILS 4.5 % (0-7); HEMATOCRIT 32.1 % (42.0-54.0); HEMOGLOBIN 10.5 g/dL (13.5-17.5); LYMPHOCYTES 6.8 % (15-50); MCH 30.9 pg (26.0-34.0); MCHC 32.7 g/dL (31.0-37.0); MCV 94.4 fL (80.0-100.0); MEAN PLATELET VOLUME 10.3 fL (7.4-10.4); MONOCYTES 8.6 % (2-11); NEUTROPHILS 76.9 % (40-80); PLATELET COUNT 179 10x3/uL (130-400); RDW 16.9 % (11.5-14.5); WBC 9.6 10x3/uL (4.8-10.8)
[2018-03-30 07:53] LABS: ALBUMIN 1.4 g/dL (3.4-5.0); ANION GAP 17.2 mmol/L (8-16); BILIRUBIN - TOTAL 0.45 mg/dL (0.2-1.3); CALCIUM 8.5 mg/dL (8.5-10.1); CARBON DIOXIDE 16.7 mmol/L (21.0-32.0); CREATININE - SERUM 2.4 mg/dL (0.6-1.3); POTASSIUM - SERUM 3.9 mmol/L (3.5-5.1); PROTEIN - SERUM 4.9 g/dL (6.4-8.2)
[2018-03-30 21:01] LABS: CREATININE - URINE 40.1 mg/dL (30-125); PROTEIN - URINE 90.3 mg/dL (0.0-11.9)
[2018-03-30 21:05] LABS: CREATININE - SERUM 2.4 mg/dL (0.6-1.3)
[2018-03-30 21:08] LABS: CREATININE - URINE 40.1 mg/dL (30-125)
[2018-03-31] VITALS (22 sets, daily range): BP systolic 124–179; BP diastolic 38–109
[2018-03-31 04:39] LABS: BASOPHILS 0.3 % (0-2); EOSINOPHILS 3.8 % (0-7); HEMATOCRIT 28.6 % (42.0-54.0); HEMOGLOBIN 9.5 g/dL (13.5-17.5); IMMATURE GRANULOCYTES 4.3 % (0-5); LYMPHOCYTES 6.1 % (15-50); MCH 31.6 pg (26.0-34.0); MCHC 33.2 g/dL (31.0-37.0); MEAN PLATELET VOLUME 10.8 fL (7.4-10.4); MONOCYTES 6.9 % (2-11); NEUTROPHILS 78.6 % (40-80); PLATELET COUNT 175 10x3/uL (130-400); RBC 3.01 10x6/uL (4.20-6.10); RDW 16.8 % (11.5-14.5); WBC 8.6 10x3/uL (4.8-10.8)
[2018-03-31 05:03] LABS: ALBUMIN 1.6 g/dL (3.4-5.0); BILIRUBIN - TOTAL 0.54 mg/dL (0.2-1.3); CALCIUM 7.7 mg/dL (8.5-10.1); CARBON DIOXIDE 19.4 mmol/L (21.0-32.0); CREATININE - SERUM 2.2 mg/dL (0.6-1.3); PROTEIN - SERUM 4.5 g/dL (6.4-8.2)
[2018-03-31 05:07] LABS: ANION GAP 12.8 mmol/L (8-16); POTASSIUM - SERUM 3.2 mmol/L (3.5-5.1)
[2018-04-01] VITALS (24 sets, daily range): BP systolic 90–133; BP diastolic 43–80
[2018-04-01 06:03] LABS: BASOPHILS 0.2 % (0-2); EOSINOPHILS 0.9 % (0-7); HEMATOCRIT 29.8 % (42.0-54.0); HEMOGLOBIN 9.8 g/dL (13.5-17.5); IMMATURE GRANULOCYTES 2.8 % (0-5); LYMPHOCYTES 3.6 % (15-50); MCH 30.7 pg (26.0-34.0); MCHC 32.9 g/dL (31.0-37.0); MCV 93.4 fL (80.0-100.0); MEAN PLATELET VOLUME 11.2 fL (7.4-10.4); NEUTROPHILS 86.5 % (40-80); PLATELET COUNT 205 10x3/uL (130-400); RBC 3.19 10x6/uL (4.20-6.10); RDW 16.1 % (11.5-14.5)
[2018-04-01 06:24] LABS: ANION GAP 14.5 mmol/L (8-16); BILIRUBIN - TOTAL 0.85 mg/dL (0.2-1.3); CALCIUM 8.6 mg/dL (8.5-10.1); CARBON DIOXIDE 21.8 mmol/L (21.0-32.0); CREATININE - SERUM 2.4 mg/dL (0.6-1.3); POTASSIUM - SERUM 3.3 mmol/L (3.5-5.1); PROTEIN - SERUM 5.3 g/dL (6.4-8.2)
[2018-04-01 06:27] LABS: WBC 12.7 10x3/uL (4.8-10.8)
[2018-04-01 06:29] LABS: ALBUMIN 2.1 g/dL (3.4-5.0)
[2018-04-02] VITALS (24 sets, daily range): BP systolic 94–132; BP diastolic 37–74
[2018-04-02 02:01] LABS: APPEARANCE CLOUDY (CLEAR); BILIRUBIN NEGATIVE (NEGATIVE); COLOR YELLOW (YELLOW); GLUCOSE NEGATIVE (NEGATIVE); KETONE NEGATIVE (NEGATIVE); NITRITE NEGATIVE (NEGATIVE); PROTEIN 3+ mg/dL (NEGATIVE); SPECIFIC GRAVITY 1.015 (1.005-1.020); UROBILINOGEN NORMAL (NORMAL)
[2018-04-02 02:03] LABS: BACTERIA MANY /hpf (NONE SEEN); EPITHELIAL CELLS 0-5 /hpf (0-5); YEAST <1+ /hpf (NONE SEEN)
[2018-04-02 02:05] LABS: CREATININE - URINE 51.5 mg/dL (30-125)
[2018-04-02 02:18] LABS: PRO/CRE RATIO URINE 5.4 mg/g; PROTEIN - URINE 276.3 mg/dL (0.0-11.9)
[2018-04-02 06:28] LABS: BASOPHILS 0.2 % (0-2); EOSINOPHILS 2.1 % (0-7); HEMATOCRIT 25.7 % (42.0-54.0); HEMOGLOBIN 8.3 g/dL (13.5-17.5); IMMATURE GRANULOCYTES 2.2 % (0-5); LYMPHOCYTES 5.3 % (15-50); MCH 30.3 pg (26.0-34.0); MCHC 32.3 g/dL (31.0-37.0); MCV 93.8 fL (80.0-100.0); MEAN PLATELET VOLUME 11.4 fL (7.4-10.4); MONOCYTES 5.1 % (2-11); NEUTROPHILS 85.1 % (40-80); PLATELET COUNT 178 10x3/uL (130-400); RBC 2.74 10x6/uL (4.20-6.10); RDW 16.1 % (11.5-14.5); WBC 10.7 10x3/uL (4.8-10.8)
[2018-04-02 06:42] LABS: ALBUMIN 2.1 g/dL (3.4-5.0); BILIRUBIN - TOTAL 0.61 mg/dL (0.2-1.3); CALCIUM 8.4 mg/dL (8.5-10.1); CARBON DIOXIDE 24.6 mmol/L (21.0-32.0); CREATININE - SERUM 2.6 mg/dL (0.6-1.3); PHOSPHOROUS 2.7 mg/dL (2.5-4.9); PROTEIN - SERUM 4.9 g/dL (6.4-8.2); URIC ACID 7.7 mg/dL (2.6-7.2)
[2018-04-02 06:48] LABS: ANION GAP 12.3 mmol/L (8-16)
[2018-04-02 06:49] LABS: POTASSIUM - SERUM 2.9 mmol/L (3.5-5.1)
[2018-04-02 14:22] LABS: FUNGUS CULTURE RESULT 1 Candida glabrata (())
[2018-04-02 15:15] LABS: MAGNESIUM - SERUM 2.4 mg/dL (1.8-2.4)
[2018-04-02 15:18] LABS: POTASSIUM - SERUM 3.7 mmol/L (3.5-5.1)
[2018-04-03] VITALS (15 sets, daily range): BP systolic 114–125; BP diastolic 37–106
[2018-04-03 05:46] LABS: BASOPHILS 0.4 % (0-2); EOSINOPHILS 3.6 % (0-7); HEMATOCRIT 27.4 % (42.0-54.0); HEMOGLOBIN 8.7 g/dL (13.5-17.5); IMMATURE GRANULOCYTES 2.6 % (0-5); LYMPHOCYTES 6.7 % (15-50); MCH 29.9 pg (26.0-34.0); MCHC 31.8 g/dL (31.0-37.0); MCV 94.2 fL (80.0-100.0); MEAN PLATELET VOLUME 11.1 fL (7.4-10.4); MONOCYTES 5.1 % (2-11); NEUTROPHILS 81.6 % (40-80); PLATELET COUNT 173 10x3/uL (130-400); RBC 2.91 10x6/uL (4.20-6.10)
[2018-04-03 06:01] LABS: ANION GAP 11.9 mmol/L (8-16); CALCIUM 8.8 mg/dL (8.5-10.1); CARBON DIOXIDE 24.5 mmol/L (21.0-32.0); CREATININE - SERUM 2.6 mg/dL (0.6-1.3); PHOSPHOROUS 3.2 mg/dL (2.5-4.9); POTASSIUM - SERUM 3.4 mmol/L (3.5-5.1); VANCOMYCIN - RANDOM 23.3 ug/mL (10.0-20.0)
[2018-04-04] MEDS ORDERED: MORPHINE P30 MG/30 M IV (09:45)
[2018-04-04] MEDS ORDERED: Atropine 1% Opht dro SL (09:45)
[2018-04-04] MEDS ORDERED: TYLENOL650 MG RC (09:45)
[2018-04-04] MEDS ORDERED: ATIVAN IV (09:45)
[2018-04-04] MEDS ORDERED: Transderm-Scop 1.5MG TRANSDERM (09:46)
[2018-04-04] MEDS ORDERED: DULCOLAX10 MG/SUPP RC (09:46)
[2018-04-24 11:20] LABS: FUNGUS MYCOLOGY CULTURE Final report (())
== END 2018-04-03 19:06 | disposition hospice, inpatient (51) | DRG 207 ==
LOC: D.ER 18:38 → D.ICU 20:15 → D.EDHOLD 20:15 → D.ICU 20:26
PROVIDERS: Family Medicine; Internal Medicine Gastroenterology; Internal Medicine Nephrology; Internal Medicine Pulmonary Disease
PROC: 5A1955Z Respiratory Ventilation, Greater than 96 Consecutive Hours (ICD-10-PCS; 2018-03-22)
PROC: 0BH17EZ Insertion of Endotracheal Airway into Trachea, Via Natural or Artificial Opening (ICD-10-PCS; 2018-03-22)
PROC: 0W3P8ZZ Control Bleeding in Gastrointestinal Tract, Via Natural or Artificial Opening Endoscopic (ICD-10-PCS; principal; 2018-03-23 10:45)
PROC: 0BCB8ZZ Extirpation of Matter from Left Lower Lobe Bronchus, Via Natural or Artificial Opening Endoscopic (ICD-10-PCS; 2018-03-27)
PROC: 0BC88ZZ Extirpation of Matter from Left Upper Lobe Bronchus, Via Natural or Artificial Opening Endoscopic (ICD-10-PCS; 2018-03-27)
PROC: 0BC68ZZ Extirpation of Matter from Right Lower Lobe Bronchus, Via Natural or Artificial Opening Endoscopic (ICD-10-PCS; 2018-03-27)
PROC: 05HY33Z Insertion of Infusion Device into Upper Vein, Percutaneous Approach (ICD-10-PCS; 2018-03-31)
DX: J15.212 Pneumonia due to Methicillin resistant Staphylococcus aureus (principal); K29.71 Gastritis, unspecified, with bleeding; I50.33 Acute on chronic diastolic (congestive) heart failure; J96.01 Acute respiratory failure with hypoxia; G92 Toxic encephalopathy; R57.8 Other shock; J96.00 Acute respiratory failure, unspecified whether with hypoxia or hypercapnia; D62 Acute posthemorrhagic anemia; I13.0 Hypertensive heart and chronic kidney disease with heart failure and stage 1 through stage 4 chronic kidney disease, or unspecified chronic kidney disease; N17.9 Acute kidney failure, unspecified; N39.0 Urinary tract infection, site not specified; J44.1 Chronic obstructive pulmonary disease with (acute) exacerbation; E87.2 Acidosis; R04.89 Hemorrhage from other sites in respiratory passages; G72.81 Critical illness myopathy; J18.9 Pneumonia, unspecified organism; Z66 Do not resuscitate; E11.22 Type 2 diabetes mellitus with diabetic chronic kidney disease; N18.3 Chronic kidney disease, stage 3 (moderate); I48.91 Unspecified atrial fibrillation; I27.20 Pulmonary hypertension, unspecified; F03.90 Unspecified dementia, unspecified severity, without behavioral disturbance, psychotic disturbance, mood disturbance, and anxiety; I25.10 Atherosclerotic heart disease of native coronary artery without angina pectoris; Z95.5 Presence of coronary angioplasty implant and graft; N40.0 Benign prostatic hyperplasia without lower urinary tract symptoms; K21.9 Gastro-esophageal reflux disease without esophagitis; M10.9 Gout, unspecified; Z86.718 Personal history of other venous thrombosis and embolism; I34.0 Nonrheumatic mitral (valve) insufficiency; D50.9 Iron deficiency anemia, unspecified; R33.9 Retention of urine, unspecified

== ENCOUNTER 2018-04-03 18:39 | Inpatient (IN) | payer OTHER ==
[~2018-04-03] VITALS: Ht 180.3 cm; Wt 81.6 kg
[2018-04-03 19:00] VITALS: BP 107/45
[2018-04-03 19:30] VITALS: BP 132/71; Ht 180.3 cm; Wt 81.6 kg
[2018-04-03 20:00] VITALS: BP 129/43
[2018-04-03 21:00] VITALS: BP 123/55
[2018-04-03 22:00] VITALS: BP 117/52
[2018-04-03 23:00] VITALS: BP 118/42
[2018-04-04] VITALS (18 sets, daily range): BP systolic 96–115; BP diastolic 29–68
[2018-04-04] MEDS ORDERED: ATIVAN IV (09:45)
[2018-04-04] MEDS ORDERED: MORPHINE P30 MG/30 M IV (09:45)
[2018-04-04] MEDS ORDERED: TYLENOL650 MG RC (09:45)
[2018-04-04] MEDS ORDERED: Atropine 1% Opht dro SL (09:45)
[2018-04-04] MEDS ORDERED: DULCOLAX10 MG/SUPP RC (09:46)
[2018-04-04] MEDS ORDERED: Transderm-Scop 1.5MG TRANSDERM (09:46)
[2018-04-05 03:00] VITALS: BP 118/36
[2018-04-05 07:00] VITALS: BP 110/37
[2018-04-06] VITALS: BP 152/106
[2018-04-06 09:44] VITALS: BP 168/84
[2018-04-06 12:00] VITALS: BP 128/53
[2018-04-06 21:11] VITALS: BP 137/45
[2018-04-07 08:38] VITALS: BP 109/40
== END 2018-04-07 15:55 | DRG 951 ==
LOC: D.MS 18:39 → D.ICU 18:39 → D.EDHOLD 18:39 → D.SDCHOLD 18:41 → D.ICU 19:09 → D.MS 04-05 18:35
DX: Z51.5 Encounter for palliative care (principal)